=== PATIENT | male | born 1930 | race Caucasian/White ===

== ENCOUNTER 2018-05-27 13:30 | Inpatient (IN) | payer OTHER ==
[~2018-05-27] VITALS: Ht 180.3 cm; Wt 87.3 kg
[2018-05-27] MEDS ORDERED: LASIX (14:40)
[2018-05-27] MEDS ORDERED: METOLAZONE (14:41)
[2018-05-27 15:12] LABS: BASOPHILS 1.2 % (0-2); EOSINOPHILS 3.9 % (0-7); HEMATOCRIT 28.2 % (42.0-54.0); HEMOGLOBIN 8.9 g/dL (13.5-17.5); IMMATURE GRANULOCYTES 0.2 % (0-5); LYMPHOCYTES 19.9 % (15-50); MCH 30.2 pg (26.0-34.0); MCHC 31.6 g/dL (31.0-37.0); MCV 95.6 fL (80.0-100.0); MEAN PLATELET VOLUME 10.1 fL (7.4-10.4); MONOCYTES 6.8 % (2-11); PLATELET COUNT 253 10x3/uL (130-400); RBC 2.95 10x6/uL (4.20-6.10); WBC 5.1 10x3/uL (4.8-10.8)
[2018-05-27 15:46] LABS: APTT 34.3 SECONDS (22.8-39.4); INR 1.22 (0.85-1.17); PROTIME 14.8 SECONDS (11.6-15.0)
[2018-05-27 15:56] LABS: ALKALINE PHOSPHATASE 62 U/L (46-116); ALT (SGPT) 16 U/L (10-68); BILIRUBIN - TOTAL 0.43 mg/dL (0.2-1.3); CALC OSMOLALITY 290 mosm/kg (275-300); CALCIUM 7.8 mg/dL (8.5-10.1); CARBON DIOXIDE 27.4 mmol/L (21.0-32.0); CHLORIDE - SERUM 106 mmol/L (98-107); CREATININE - SERUM 3.3 mg/dL (0.6-1.3); GLUCOSE 108 mg/dL (74-106); POTASSIUM - SERUM 4.2 mmol/L (3.5-5.1); PROTEIN - SERUM 5.7 g/dL (6.4-8.2); SODIUM 142 mmol/L (136-145); UREA NITROGEN 32 mg/dL (7-18); eGFR NON AFRICAN AMERICAN 19 mL/min (90-120)
[2018-05-27 16:04] LABS: % SATURATION 26 % (15-55); IRON 37 ug/dl (35-150); TOTAL IRON BIND CAPACITY 141 ug/dl (260-445); UNSAT IRON BIND CAPACITY 104 ug/dl (150-375)
[2018-05-27 16:08] LABS: CKMB 1.4 U/L (0.0-3.6); CREATINE KINASE 72 UL (21-232); PRO BNP 16579 pg/mL (0-450); TROPONIN-I 0.026 ng/mL (0.000-0.060)
[2018-05-27 16:27] LABS: APPEARANCE CLEAR (CLEAR); BILIRUBIN NEGATIVE (NEGATIVE); COLOR YELLOW (YELLOW); GLUCOSE 100 mg/dL (NEGATIVE); KETONE NEGATIVE (NEGATIVE); NITRITE NEGATIVE (NEGATIVE); PROTEIN 1+ mg/dL (NEGATIVE); UROBILINOGEN NORMAL (NORMAL)
[2018-05-27 16:28] LABS: BACTERIA FEW /hpf (NONE SEEN); RED CELLS - URINE 0-5 /hpf (0-5); WHITE CELLS - URINE OCC /hpf (0-5)
--- NOTE | 2018-05-27 20:30 | NUR ---
PT ARRIVED TO FLOOR VIA STRECHER FROM ER. FAMILY FRIENDS AT BEDSIDE. PT VITALS STABLE. PT DENIES ANY NEEDS OR PAIN AT THIS TIME. BED LOW CALL LIGHT WITHIN REACH. WILL CONTINUE TO MONITOR
[2018-05-28 04:00] VITALS: BP 114/63
--- NOTE | 2018-05-28 04:45 | NUR ---
PT RESTING IN BED WITH EYES CLOSED. RESPIRATIONS EVEN AND UNLABORED. BED LOW CALL LIGHT WITHIN REACH. WILL CONTINUE TO MONITOR.
[2018-05-28 05:38] LABS: ALBUMIN 1.8 g/dL (3.4-5.0); ANION GAP 9.9 mmol/L (8-16); BILIRUBIN - TOTAL 0.31 mg/dL (0.2-1.3); CALCIUM 7.3 mg/dL (8.5-10.1); CARBON DIOXIDE 29.1 mmol/L (21.0-32.0); CREATININE - SERUM 3.4 mg/dL (0.6-1.3); PROTEIN - SERUM 5.1 g/dL (6.4-8.2)
[2018-05-28 05:40] LABS: HEMATOCRIT 28.4 % (42.0-54.0); LYMPHOCYTES 19.3 % (15-50); MCH 30.4 pg (26.0-34.0); MCHC 31.7 g/dL (31.0-37.0); MCV 95.9 fL (80.0-100.0); MEAN PLATELET VOLUME 9.8 fL (7.4-10.4); PLATELET COUNT 213 10x3/uL (130-400); RBC 2.96 10x6/uL (4.20-6.10); RDW 15.1 % (11.5-14.5); WBC 3.8 10x3/uL (4.8-10.8)
--- NOTE | 2018-05-28 07:00 | NUR ---
RESTING QUIETLY IN BED, EYES CLOSED, AROUSES TO VERBAL STIMULI, NO S/S PAIN OR DISTRESS, 3 + EDEMA TO BLE AND ARMS, CALL LIGHT AT HAND, INSTRUCTED TO CALL WITH NEEDS.
[2018-05-28] MEDS ORDERED: NORVASC2.5 MG PO (07:17)
[2018-05-28] MEDS ORDERED: POTASSIUM CHLO20 MEQ (07:18)
[2018-05-28] MEDS ORDERED: SYNTHROID50 MCG PO (07:20)
[2018-05-28] MEDS ORDERED: FERROUS SULFAT325 MG PO (07:21)
[2018-05-28] MEDS ORDERED: COUMADIN2.5 MG PO (07:21)
[2018-05-28] MEDS ORDERED: LASIX40 MG PO (07:21)
[2018-05-28] MEDS ORDERED: LIPITOR40 MG PO (07:22)
[2018-05-28] MEDS ORDERED: HYTRIN1 MG PO (07:23)
[2018-05-28] MEDS ORDERED: TENORMIN50 MG PO (07:24)
[2018-05-28] MEDS ORDERED: CALCIUM 500 +1 EAC3 PO (07:24)
[2018-05-28 07:58] VITALS: BP 132/68
[2018-05-28 10:17] VITALS: BMI 27.2
[2018-05-28 11:46] VITALS: BP 136/65
--- NOTE | 2018-05-28 14:53 | NUR ---
REFUSES SCD'S PER DIMITRIOS/RN
[2018-05-28 15:08] VITALS: Ht 180.3 cm; Wt 87.3 kg
[2018-05-28 16:25] VITALS: BP 142/68
--- NOTE | 2018-05-28 16:45 | MORECARE ---
CASE MANAGEMENT DISCHARGE SUMMARY PATIENT: JOS ESPINAL UNIT: [id number] ADM DATE: 05/27/18 AGE: 87 : 32 SEX: M ROOM/BED: D.2104 AUTHOR: CORIE ROCA PHYSICIAN: REFERRING PHYSICIAN: ERIN LUA MD DATE OF SERVICE: 05/28/18 Discharge Plan Patient Name: JOS ESPINAL [facility] [facility] 1930 Planned Disposition: [place] facility Anticipated Discharge Date: Discharge Date: Expected LOS: Initial Reviewer: [email or web address] Initial Review Date: 05/28/2018 Generated: 05/28/18 5:45 pm Patient Name: JOS ESPINAL Page 85234 at 1645 All edits/amendments must be made on the electronic document DICTATION DATE: 05/28/181643 COMMERCIAL TELLER: JENNY 05/28/181643 RPT#: [id number] DC DATE: STATUS: ADM IN [facility] [address] [place] [address] END OF REPORT
--- NOTE | 2018-05-28 16:53 | MORECARE ---
CASE MANAGEMENT DISCHARGE SUMMARY PATIENT: JOS ESPINAL UNIT: [id number] ADM DATE: 05/27/18 AGE: 87 : 32 SEX: M ROOM/BED: D.2104 AUTHOR: CORIE ROCA PHYSICIAN: REFERRING PHYSICIAN: ERIN LUA MD DATE OF SERVICE: 05/28/18 Discharge Plan Patient Name: JOS ESPINAL [facility] [facility] 1930 [place] Disposition: [place] facility Anticipated Discharge Date: Discharge Date: Expected LOS: Initial Reviewer: [email or web address] Initial Review Date: 05/28/2018 Generated: 05/28/18 5:53 pm DCPIA - Discharge Planning Initial Assessment Updated by [email or web address]: Cedric Brennan on 05/28/18 4:48 pm * Is the patient Alert and Oriented? Yes * How many steps to enter\exit or inside your home? * PCP PRIMARY [facility]. SWAN, [facility] IN[facility] INTERN, DR. NOLASCO, [facility] * [facility] [place] [facility] * Preadmission Environment Home with Family * ADLs Independent * Equipment None * Other Equipment [facility] FOR ANY MEDICAL EQUIPMENT * List name and contact numbers for known caregivers / representatives who currently or will assist patient after discharge: LUDIVINA MOSQUERA SON, NUMBER UNKNOWN LUDIVINA ROBERTS DAUGHTER, * Verbal permission to speak to the caregivers and representatives has been obtained from the patient. Yes * Community resources currently utilized None * Please name any agencies selected above. NONE * Additional services required to return to the preadmission environment? No * Can the patient safely return to the preadmission environment? Yes * Has this patient been hospitalized within the prior 30 days at any hospital? No Last DP export: 05/28/18 3:45 p Patient Name: JOS ESPINAL Page 62720 at 1653 All edits/amendments must be made on the electronic document DICTATION DATE: 05/28/181652 TRAIN CONTROL ELECTRONIC TECHNICIAN: JENNY 05/28/181652 RPT#: [id number] DC DATE: STATUS: ADM IN [facility] [address] [facility], [facility] END OF REPORT
--- NOTE | 2018-05-28 19:15 | NUR ---
RESUME CARE. PT LAYING IN BED A&O FAMILY AT BEDSIDE NO C/O OF PAIN OR DISTRESS AT THIS TIME CALL LIGHT IN REACH WILL CONT TO PRAVEENA
[2018-05-28 20:00] VITALS: BP 146/68
--- NOTE | 2018-05-29 | NUR ---
PT ASLEEP. NO S/S OF DISTRESS. BEDLOW AND CALL LIGHT IN REACH. WILL CPOC
[2018-05-29 04:00] VITALS: BP 160/73
[2018-05-29 04:04] LABS: BASOPHILS 0.8 % (0-2); EOSINOPHILS 3.8 % (0-7); HEMATOCRIT 27.8 % (42.0-54.0); HEMOGLOBIN 8.7 g/dL (13.5-17.5); IMMATURE GRANULOCYTES 0.2 % (0-5); LYMPHOCYTES 17.6 % (15-50); MCH 29.7 pg (26.0-34.0); MCHC 31.3 g/dL (31.0-37.0); MCV 94.9 fL (80.0-100.0); MEAN PLATELET VOLUME 10.2 fL (7.4-10.4); MONOCYTES 8.9 % (2-11); NEUTROPHILS 68.7 % (40-80); PLATELET COUNT 226 10x3/uL (130-400); RBC 2.93 10x6/uL (4.20-6.10); WBC 4.7 10x3/uL (4.8-10.8)
[2018-05-29 04:23] LABS: ALBUMIN 1.7 g/dL (3.4-5.0); ANION GAP 10.3 mmol/L (8-16); BILIRUBIN - TOTAL 0.34 mg/dL (0.2-1.3); CALCIUM 7.2 mg/dL (8.5-10.1); CARBON DIOXIDE 27.5 mmol/L (21.0-32.0); CREATININE - SERUM 3.4 mg/dL (0.6-1.3); MAGNESIUM - SERUM 1.7 mg/dL (1.8-2.4); POTASSIUM - SERUM 3.8 mmol/L (3.5-5.1)
--- NOTE | 2018-05-29 07:00 | NUR ---
RESTING IN BED, ALERT, CALM, DENIES NEEDS, DENIES PAIN, CALL LIGHT AT HAND, INSTRUCTED TO CALL WITH NEEDS.
[2018-05-29 09:02] VITALS: BP 121/63
[2018-05-29 12:17] VITALS: BP 116/62
--- NOTE | 2018-05-29 14:45 | NUR ---
AWAITNG DELIVERY OF BUMEX FROM PHARMACY.
--- NOTE | 2018-05-29 14:58 | NUR ---
RESTING QUIELTY IN BED, ALERT, VERY MILD CONFUSION NOTED, IV MED INFUSING ORDERED. DENIES PAIN, BLE CONT EDEMATOUS, RIGHT ARM EDEMATOUS. CONT ON BUMEX. DENIES NEEDS, CALL LIGHT AT HAND, INSTRUCTED TO CALL WITH NEEDS.
[2018-05-29 15:27] VITALS: BP 154/73
[2018-05-29 19:44] VITALS: BP 158/75
--- NOTE | 2018-05-29 19:45 | NUR ---
RESUMING CARE. PT IS LAYING IN THE BED RESTING WITH EYES CLOSED. BED IN THE LOWEST POSITION WITH CALL LIGHT IN REACH. SIDE RAILS UP X 2. WILL CONTINUE TO MONITOR PT AND FOLLOW PLAN OF CARE.
[2018-05-29 23:50] VITALS: BP 125/71
--- NOTE | 2018-05-30 03:33 | NUR ---
PT RESTING WITH EYES CLOSED. RESP EVEN AND REGULAR. SR UP X2, CALL LIGHT WITHIN REACH.
[2018-05-30 03:45] VITALS: BP 130/80
[2018-05-30 05:43] LABS: BASOPHILS 0.8 % (0-2); EOSINOPHILS 3.7 % (0-7); HEMATOCRIT 29.6 % (42.0-54.0); HEMOGLOBIN 9.4 g/dL (13.5-17.5); IMMATURE GRANULOCYTES 0.6 % (0-5); LYMPHOCYTES 17.2 % (15-50); MCH 29.9 pg (26.0-34.0); MCHC 31.8 g/dL (31.0-37.0); MCV 94.3 fL (80.0-100.0); MEAN PLATELET VOLUME 10.3 fL (7.4-10.4); NEUTROPHILS 69.7 % (40-80); PLATELET COUNT 232 10x3/uL (130-400); RBC 3.14 10x6/uL (4.20-6.10); RDW 15.2 % (11.5-14.5); WBC 4.9 10x3/uL (4.8-10.8)
[2018-05-30 06:08] LABS: ALBUMIN 1.7 g/dL (3.4-5.0); ANION GAP 10.5 mmol/L (8-16); BILIRUBIN - TOTAL 0.27 mg/dL (0.2-1.3); CALCIUM 7.4 mg/dL (8.5-10.1); CARBON DIOXIDE 27.9 mmol/L (21.0-32.0); CREATININE - SERUM 3.3 mg/dL (0.6-1.3); MAGNESIUM - SERUM 1.8 mg/dL (1.8-2.4); POTASSIUM - SERUM 3.4 mmol/L (3.5-5.1); PROTEIN - SERUM 5.2 g/dL (6.4-8.2)
--- NOTE | 2018-05-30 07:54 | NUR ---
PT REQUESTS A SHOW. AID WILL PROVIDE. CL IN REACH. SLEPT POORLY. GOOD SPIRITS.
[2018-05-30 08:00] VITALS: BP 161/72
[2018-05-30 09:13] LABS: PSA - % FREE 43.5 % (()); PSA - TOTAL 2.3 ng/mL (0.0-4.0)
[2018-05-30 10:15] LABS: CEA 1.1 ng/mL (0.0-4.7)
--- NOTE | 2018-05-30 11:12 | NUR ---
PHARMACY HAS NOT BROUGHT NEW BAG OF BUMEX, CALLED @0837
--- NOTE | 2018-05-30 12:38 | NUR ---
RADIOLOGIC TECHNOLOGY PROGRAM DIRECTOR NOTE: PT RESTING IN BED. CO OF PAIN IN JOINTS. NOTIFIED HIS NURSE, JOCE. NO S/S OF ACUTE DISTRESS. CL IN PLACE.
--- NOTE | 2018-05-30 12:42 | NUR ---
HAMPER MAKER NOTE: PT SITTING UP IN BED EATING LUNCH. DENIES PAIN. NO S/S OF ACUTE DISTRESS. CL IN PLACE.
--- NOTE | 2018-05-30 15:58 | NUR ---
PT UNSCREWED OWN I/V. REFIXED.
[2018-05-30 16:00] VITALS: BP 163/87
[2018-05-30 17:55] VITALS: BP 150/68
--- NOTE | 2018-05-30 18:13 | NUR ---
PT IN BED, NO COCNERSN OR COMPLAINTS AT THIS TIME. CL IN REACH. SR X 2
--- NOTE | 2018-05-30 19:20 | NUR ---
AWAKE HOLLERING "IS ANYBODY OUT THERE". STATED HE WANTED HIS URINAL EMPTIED. ORIENTED TO USE THE CALL LIGHT NURSES BUTTON. SOME KOI NOTED. IV IN LT FA WITH BUMES INFUSING AT 10ML/HR. SHOWS 89 SR ON TELEMETRY. NO OTHER NEEDS OR DISCOMFORTS VOICED.
--- NOTE | 2018-05-30 21:00 | NUR ---
STATED SOME DISCOMFORT IN HIS RIGHT ARM, ELEVATED ON 2 PILLOWS. TOOK HIM SOME TYLENOL, BUT HE REFUSED. RETURNED TO THE [facility].
[2018-05-31 00:30] LABS: APPEARANCE CLEAR (CLEAR); BILIRUBIN NEGATIVE (NEGATIVE); COLOR YELLOW (YELLOW); GLUCOSE 500 mg/dL (NEGATIVE); KETONE NEGATIVE (NEGATIVE); NITRITE NEGATIVE (NEGATIVE); PROTEIN 2+ mg/dL (NEGATIVE); SPECIFIC GRAVITY 1.015 (1.005-1.020); UROBILINOGEN NORMAL (NORMAL)
[2018-05-31 00:49] LABS: BACTERIA FEW /hpf (NONE SEEN); EPITHELIAL CELLS OCC /hpf (0-5); HYALINE CAST OCC /lpf (NONE SEEN); RED CELLS - URINE 0-5 /hpf (0-5); WHITE CELLS - URINE OCC /hpf (0-5)
[2018-05-31 00:54] LABS: CREATININE - URINE 40.5 mg/dL (30-125)
[2018-05-31 00:57] LABS: PROTEIN - URINE 637.3 mg/dL (0.0-11.9)
--- NOTE | 2018-05-31 01:00 | NUR ---
USED CALL LIGHT. REQUESTED BLANKET FROM THE CHAIR. EMPTIED URINAL.
--- NOTE | 2018-05-31 04:30 | NUR ---
ASSISTED TO BATHROOM TO HAVE A BM AND BACK TO BED. NO OTHER NEEDS VOICED.
[2018-05-31 04:51] LABS: BASOPHILS 0.6 % (0-2); HEMATOCRIT 29.1 % (42.0-54.0); HEMOGLOBIN 9.2 g/dL (13.5-17.5); IMMATURE GRANULOCYTES 0.6 % (0-5); LYMPHOCYTES 15.1 % (15-50); MCH 29.8 pg (26.0-34.0); MCHC 31.6 g/dL (31.0-37.0); MCV 94.2 fL (80.0-100.0); MEAN PLATELET VOLUME 10.3 fL (7.4-10.4); MONOCYTES 9.2 % (2-11); NEUTROPHILS 71.5 % (40-80); PLATELET COUNT 241 10x3/uL (130-400); RBC 3.09 10x6/uL (4.20-6.10)
[2018-05-31 05:07] VITALS: BP 107/80
[2018-05-31 05:15] LABS: ALBUMIN 1.7 g/dL (3.4-5.0); BILIRUBIN - TOTAL 0.32 mg/dL (0.2-1.3); CALCIUM 7.1 mg/dL (8.5-10.1); CARBON DIOXIDE 27.9 mmol/L (21.0-32.0); CREATININE - SERUM 3.6 mg/dL (0.6-1.3); MAGNESIUM - SERUM 1.8 mg/dL (1.8-2.4); PROTEIN - SERUM 4.9 g/dL (6.4-8.2)
[2018-05-31 05:20] LABS: POTASSIUM - SERUM 2.9 mmol/L (3.5-5.1)
--- NOTE | 2018-05-31 08:09 | NUR ---
PT ASLEEP. DID NOT WAKE I ENTERED. PT REMOVED PILLOWS THAT HAVE BEEN PROPPING HIS ARM UP. DID NOT FURTHER DISTURB. CL IN REACH. SRX2.
[2018-05-31 08:59] VITALS: BP 154/74
[2018-05-31 13:05] VITALS: BP 153/80
--- NOTE | 2018-05-31 15:55 | NUR ---
BACKHAUL DRIVER NOTE: PT RESTING IN BED WATCHING TV. EDEMA TO RUE AND RLE NOTED. NO S/S OF ACUTE DISTRESS. CL IN PLACE.
[2018-05-31 16:09] VITALS: BP 140/77
--- NOTE | 2018-05-31 19:20 | NUR ---
PT NOTED STANDING AT THE FOOT OF HIS BED YELLING FOR HELP. HE WAS TRYING TO GET AROUND HIS BED TO GET IN IT, BUT THE IV WAS STRETCHED TIGHT, AND HE COULDNT GET THERE. PT ASSISTED INTO BED WITH MIN ASSIST. PT IS ALERT TO NAME AND ROOM, BUT CONFUSED TO SITUATION. RIGHT ARM ELEVATED UP ON 2 PILLOWS TO ASSIST IN RELIEVING 3+ EDEMA. TELEMETRY UNIT IS ON AND INTACT. IV BUMEX INFUSING TO LFA WITHOUT DIFFICULTY. SR'S ARE UP X 2 IN BED. CALL LIGHT AND BEDSIDE TABLE ARE WITHIN EASY REACH.
[2018-05-31 19:45] VITALS: BP 171/84
--- NOTE | 2018-05-31 21:01 | NUR ---
RESTING IN BED WATCHING TV. NO DISTRESS NOTED. NO NEEDS VOICED.
[2018-05-31 23:41] VITALS: BP 155/71
--- NOTE | 2018-06-01 00:20 | NUR ---
PT ASSISTED TO THE BATHROOM WITH MIN ASSIST. VOIDED WITHOUT DIFFICULTY. NO FURTHER NEEDS VOICED.
[2018-06-01 03:49] VITALS: BP 180/92
--- NOTE | 2018-06-01 04:06 | NUR ---
PT RESTING IN BED WITH NO DISTRESS. RESPS NONLABORED. MONITOR AND CPOC. CALL LIGHT IN REACH.
[2018-06-01 05:42] LABS: BASOPHILS 0.2 % (0-2); EOSINOPHILS 2.6 % (0-7); HEMATOCRIT 27.8 % (42.0-54.0); HEMOGLOBIN 8.8 g/dL (13.5-17.5); IMMATURE GRANULOCYTES 0.3 % (0-5); LYMPHOCYTES 8.4 % (15-50); MCH 29.6 pg (26.0-34.0); MCHC 31.7 g/dL (31.0-37.0); MCV 93.6 fL (80.0-100.0); MEAN PLATELET VOLUME 10.2 fL (7.4-10.4); NEUTROPHILS 80.5 % (40-80); PLATELET COUNT 224 10x3/uL (130-400); RBC 2.97 10x6/uL (4.20-6.10); RDW 15.1 % (11.5-14.5); WBC 6.1 10x3/uL (4.8-10.8)
[2018-06-01 06:00] LABS: ANION GAP 10.9 mmol/L (8-16); BILIRUBIN - TOTAL 0.42 mg/dL (0.2-1.3); CALCIUM 7.1 mg/dL (8.5-10.1); CARBON DIOXIDE 29.2 mmol/L (21.0-32.0); CREATININE - SERUM 3.5 mg/dL (0.6-1.3); MAGNESIUM - SERUM 1.5 mg/dL (1.8-2.4); POTASSIUM - SERUM 3.1 mmol/L (3.5-5.1); PROTEIN - SERUM 5.4 g/dL (6.4-8.2)
[2018-06-01 06:01] LABS: ALBUMIN 2.4 g/dL (3.4-5.0)
[2018-06-01 08:10] VITALS: BP 156/76
--- NOTE | 2018-06-01 08:14 | NUR ---
CALLED PHARMACY AND SPOKE WITH JOS, INFORMED HIM THAT I AM GOING TO NEED SOME BUMEX. BAG COMPLETELY EMPTIED.
--- NOTE | 2018-06-01 09:51 | NUR ---
AM MEDS GIVEN AT THIS TIME. PT DENIES ANY NEEDS AT THIS TIME. CALL LIGHT IN REACH, NAD NOTED, WILL CONTINUE TO MONITOR.
[2018-06-01 11:45] VITALS: BP 159/71
--- NOTE | 2018-06-01 15:13 | NUR ---
PROVIDED VERBAL AND WRITTEN DISCHARGE TEACHING TO PT WHO VERBALIZED UNDERSTANDING REGARDING TEACHING. D/C LT FA IV WITH CATHETER TIP INTACT. HEART MONITOR REMOVED AND TAKEN TO RISK CONSULTANT TRACY. PT WILL NOFITY THIS NURSE WHEN READY FOR WHEELCHAIR. CALLED PT'S DAUGHTER GLORIA AND NOTIFIED HER OF DISCHARGE.
--- NOTE | 2018-06-01 16:02 | NUR ---
PT LEFT UNIT VIA WHEELCHAIR, WITH ALL BELONGINGS, ACCOMPANIED BY FAMILY, NAD NOTED.
[2018-06-01 17:11] LABS: SPE - A/G RATIO 0.8 (0.7-1.7); SPE - ALBUMIN 2.1 g/dL (2.9-4.4); SPE - ALPHA-1 GLOBULIN 0.3 g/dL (0.0-0.4); SPE - ALPHA-2 GLOBULIN 0.6 g/dL (0.4-1.0); SPE - BETA GLOBULIN 0.7 g/dL (0.7-1.3); SPE - M-SPIKE Not Observed g/dL (Not Observed); SPE - TOTAL PROTEIN 4.6 g/dL (6.0-8.5)
--- NOTE | 2018-06-02 15:01 | EC ---
PATIENT:JOS ESPINAL DATE OF SERVICE: 05/27/18 SEX: M MEDICAL RECORD: [id number] DATE OF : [birth year] LOCATION:D.M2 D.210 AGE OF PATIENT: 87 ADMISSION DATE: 05/27/18 REFERRING PHYSICIAN: INTERPRETING PHYSICIAN: ALTAF WALKER MD ECHOCARDIOGRAM REPORT ECHO CHARGES 4 ECHO COMPLETE Date: 05/29/18 CLINICAL DIAGNOSIS: DYSPNEA/CHF ECHOCARDIOGRAPHIC MEASUREMENTS (adult normal given) AC root (d.<3.7cm) 3.8 cm LV Septum d (<1.2 cm> 1.3 cm Valve Excursion 1.2 cm LV Septum (systole) 1.7 cm Left Atria (s.<4.0cm> 4.4 cm LVPW d(<1.2cm) 1.3 cm RV (d.<2.3cm) 3.5 cm LVPW (sytole) 1.8 cm LV diastole(<5.6CM) 6.6 cm MV E-F(>70mm/sec) cm LV systole 4.2 cm LVOT Diameter 1.9 cm MV exc.(>10mm) cm Est.ejection fraction (50-75%) % DOPPLER: LVIT cm/sec A 52.0 cm/sec E 120 cm/sec LA cm/sec RVSP 53.0 mmHg LVOT 116 cm/sec AOP1/2T 494.0m/s Asc. Ao 310 cm/sec RVOT 46.0 cm/sec RA cm/sec PA 96.0 cm/sec AV Gradient Peak 39.0 mmHg AV Mean 19.0 mmHg AV Area 0.9 cm MV Gradient Peak 14.0 mmHg MV Mean 2.7 mmHg MV Area cm COMMENTS: Engraving Operator: Mauricio MAHONEYOE Training Administrator: 3 Dr. Gonzales TAPE# PACS Pericardial Effusion N DATE OF SERVICE: 05/30/2018 Adequate 2D echo, color flow and spectral Doppler, and M-mode. Mild LVH. LV internal dimensions are normal. LV is mildly globally hypo with LV function lower limits of normal at 45% to 50%. Aortic valve is sclerotic. Peak gradient of 40 mmHg putting this in moderate range. Left atrium is dilated at 4.4 cm. Mitral valve is thickened. Moderate MR. Right-sided chambers appear dilated. [id number] TR. RV systolic pressure estimated greater than or equal to 53 mmHg via the continuity equation. ECHOCARDIOGRAM REPORT [id number] KYLIEJOS TRANSINT:[id number] Voice Confirmation ID: [id number] DOCUMENT ID: [id number] ALTAF WALKER MD at 1501 CC: [id number] DICTATION DATE: 05/30/18 1147 PARKING TECHNICIAN: 05/30/18 1354 DIS IN 06/01/18 [facility] [address] [place] [address]
--- NOTE | 2018-06-03 09:14 | MORECARE ---
CASE MANAGEMENT DISCHARGE SUMMARY PATIENT: JOS ESPINAL UNIT: [id number] ADM DATE: 05/27/18 AGE: 87 : 32 SEX: M ROOM/BED: D.2104 AUTHOR: CORIE ROCA PHYSICIAN: REFERRING PHYSICIAN: ERIN LUA MD DATE OF SERVICE: 06/03/18 Discharge Plan Patient Name: JOS ESPINAL Facility: [facility]:[place] : 1930 Planned Disposition: [place] facility Anticipated Discharge Date: 06/01/18 Discharge Date: 06/01/2018 Expected LOS: 5 Initial Reviewer: [email or web address] Initial Review Date: 05/28/2018 Generated: 06/03/18 10:13 am DCPIA - Discharge Planning Initial Assessment Updated by [email or web address]: Cedric Brennan on 05/28/18 4:48 pm * Is the patient Alert and Oriented? Yes * How many steps to enter\exit or inside your home? * PCP PRIMARY DR. SWAN, [facility] CIRCULAR HEAD SAW OPERATOR, DR. NOLASCO, [facility] * Pharmacy [place] [facility] * Preadmission Environment Home with Family * ADLs Independent * Equipment None * Other Equipment [facility] FOR ANY MEDICAL EQUIPMENT * List name and contact numbers for known caregivers / representatives who currently or will assist patient after discharge: LUDIVINA MOSQUERA SON, NUMBER UNKNOWN LUDIVINA ROBERTS DAUGHTER, * Verbal permission to speak to the caregivers and representatives has been obtained from the patient. Yes * Community resources currently utilized None * Please name any agencies selected above. NONE * Additional services required to return to the preadmission environment? No * Can the patient safely return to the preadmission environment? Yes * Has this patient been hospitalized within the prior 30 days at any hospital? No Last DP export: 05/28/18 3:53 p Patient Name: JOS ESPINAL Page [phone] at 0914 All edits/amendments must be made on the electronic document DICTATION DATE: 06/03/18912 AIR TWIST OPERATOR: JENNY 06/03/18912 RPT#: [id number] DC DATE:06/01/18 STATUS: DIS IN [facility] [address] [place] [address] END OF REPORT
[2018-06-03 15:30] LABS: UPE RAND - ALBUMIN 34.6 % (()); UPE RAND - ALPHA 1 GLOBULIN 11.3 % (()); UPE RAND - ALPHA 2 GLOBULIN 11.1 % (()); UPE RAND - BETA GLOBULIN 17.3 % (()); UPE RAND - GAMMA GLOBULIN 25.6 % (())
--- NOTE | 2018-06-04 10:50 | MORECARE ---
CASE MANAGEMENT DISCHARGE SUMMARY PATIENT: JOS ESPINAL UNIT: [id number] ADM DATE: 05/27/18 AGE: 87 : 32 SEX: M ROOM/BED: D.2104 AUTHOR: ABELINO,DOC PHYSICIAN: REFERRING PHYSICIAN: ERIN LUA MD DATE OF SERVICE: 06/04/18 Discharge Plan Patient Name: JOS ESPINAL Facility: [facility]:[place] : 1930 Planned Disposition: VA facility Anticipated Discharge Date: 06/01/18 Discharge Date: 06/01/2018 Expected LOS: 5 Initial Reviewer: [email or web address] Initial Review Date: 05/28/2018 Generated: 06/04/18 11:49 am Comments DCP- Discharge Planning Updated by [email or web address]: Cedric Brennan on 06/04/18 9:[address] Patient Name: JOS ESPINAL Encounter No: [id number] : 1930 Primary Insurance: [employer] Anticipated DC Date: 06-01-2018 Planned Disposition: HOME DCP follow-up note: CM SPOKE TO PT IN ROOM AFTER READMISSION, PT DOES NOT WANT TO TRANSFER TO [place] AND WANTS TO BILL HIS MEDICARE TO REMAIN AT [place]. CM CALLED [place] EXPEDITOR SHARON, , INFORMED OF PT'S DISCHARGE HOME AND READMIT ON SAME DAY OF DISCHARGE, 06-01-18 WELL PT'S DECISION TO REFUSE VA TRANSFER. Cedric Brennan, CASE MANGEMENT DCPIA - Discharge Planning Initial Assessment Updated by [id number]: Cedric Brennan on 05/28/18 4:48 pm * Is the patient Alert and Oriented? Yes * How many steps to enter\exit or inside your home? * PCP PRIMARY DR. SWAN, [facility], DR. NOLASCO, [facility] * Pharmacy [facility] [place] * Preadmission Environment Home with Family * ADLs Independent * Equipment None * Other Equipment [facility] FOR ANY MEDICAL EQUIPMENT * List name and contact numbers for known caregivers / representatives who currently or will assist patient after discharge: CEDRIC PALOMO, STEP SON, NUMBER UNKNOWN LUDIVINA ROBERTS DAUGHTER, * Verbal permission to speak to the caregivers and representatives has been obtained from the patient. Yes * Community resources currently utilized None * Please name any agencies selected above. NONE * Additional services required to return to the preadmission environment? No * Can the patient safely return to the preadmission environment? Yes * Has this patient been hospitalized within the prior 30 days at any hospital? No Last DP export: 06/03/18 8:14 a Patient Name: JOS ESPINAL Page [phone] at 1050 All edits/amendments must be made on the electronic document DICTATION DATE: 06/04/18 1049 SPECIAL EFFECTS ARTIST: DM 06/04/18 1049 RPT#: [id number] DC DATE:06/01/18 STATUS: DIS IN [facility] [address] [place] [address] END OF REPORT
== END 2018-06-01 16:11 | disposition home or self-care (01) | DRG 291 ==
LOC: D.ER 13:30 → D.EDHOLD 19:22 → D.M2 19:22
PROVIDERS: Family Medicine; Internal Medicine; ADMIT Family Medicine
DX: I13.0 Hypertensive heart and chronic kidney disease with heart failure and stage 1 through stage 4 chronic kidney disease, or unspecified chronic kidney disease (principal); I50.31 Acute diastolic (congestive) heart failure; N18.4 Chronic kidney disease, stage 4 (severe); I48.2 Chronic atrial fibrillation; D64.9 Anemia, unspecified; E83.51 Hypocalcemia

== ENCOUNTER 2018-06-01 19:08 | Inpatient (IN) | payer MEDICARE ==
[~2018-06-01] VITALS: Ht 180.3 cm; Wt 74.1 kg
--- NOTE | ~2018-06-01 | OP ---
PATIENT NAME: JOS ESPINAL MEDICAL RECORD: [id number] :34 LOCATION:D.M2 D.2109 ADMISSION DATE:06/01/18 SURGEON: ANTONIO DEAN MD DATE OF OPERATION: 06/08/2018 REFERRED BY: Oren Lindsey MD PREOPERATIVE DIAGNOSES: End-stage renal disease, needing to start hemodialysis. Additional diagnoses; congestive heart failure, anasarca, large persistent right pleural effusion. POSTOPERATIVE DIAGNOSES: End-stage renal disease, needing to start hemodialysis. Additional diagnoses; congestive heart failure, anasarca, large persistent right pleural effusion. OPERATION PERFORMED: Implantation of a 19-cm HemoSplit with ultrasound and fluoroscopic guidance via the right internal jugular vein. SURGEON: Antonio Dean MD ANESTHESIA: General with an LMA per INSPECTOR. PREOPERATIVE NOTE: This 87-year-old gentleman with worsening renal failure, now thought to be end-stage needs to start dialysis today, and Dr. Lindsey has been replaced a HemoSplit catheter to facilitate that. DESCRIPTION OF PROCEDURE: Under general anesthesia per INSPECTOR, using an LMA, the patient was prepped and draped in sterile manner. The right internal jugular vein was located with Duplex Ultrasound. It was noted to be fully round and fairly turgid though compressible. No other abnormalities were seen. An incision was made at the base of the neck directly over that vein and through that a micropuncture needle and wire were inserted under ultrasound guidance and then under fluoroscopy, a catheter exchange and the larger wire was inserted and the wire parked in the inferior vena cava. Dilators were passed over the wire under fluoroscopy and lastly a dilator peel-away sheath. I chose a 19-cm catheter and made an incision beneath the clavicle and pulled that catheter through a subcutaneous tunnel up to the cervical incision. It was then inserted through the peel-away sheath as it was removed. Fluoroscopy demonstrated good positioning of the catheter. Both lumens were then accessed and aspirated, free return of blood per each was confirmed. It was then flushed with saline and Hep-Lock and the catheter clamped and capped. The cervical incision was closed with interrupted inverted 3-0 Vicryl and to provide additional hemostasis, 2 interrupted simple 4-0 Prolene sutures. A 3-0 Vicryl and intracuticular inverted suture was used at the exit site of the catheter and the catheter was sutured to the skin with 2-0 Prolene. Further sterile dry dressings were applied and the patient in stable condition taken to the recovery room. He will resume his usual or his preop medications, diet, and activities. TRANSINT:[id number] Voice Confirmation ID: [id number] DOCUMENT ID: [id number] OPERATIVE REPORT [id number] JOS ESPINAL JAMES MD CC: OREN LINDSEY [id number] DICTATION DATE: 06/08/18 1114 ENTREPRENEURSHIP PROGRAM DIRECTOR: 06/08/18 1318 ADM IN [place] [address] [place] [address]
[~2018-06-01 19:08] MED LIST: CALCIUM 500 +1 EAC3 PO; COUMADIN2.5 MG PO; FERROUS SULFAT325 MG PO; HYTRIN1 MG PO; LASIX; LASIX40 MG PO; LIPITOR40 MG PO; METOLAZONE; NORVASC2.5 MG PO; POTASSIUM CHLO20 MEQ; SYNTHROID50 MCG PO; TENORMIN50 MG PO
[2018-06-01 20:08] LABS: APPEARANCE CLEAR (CLEAR); BILIRUBIN NEGATIVE (NEGATIVE); COLOR YELLOW (YELLOW); GLUCOSE 100 mg/dL (NEGATIVE); KETONE NEGATIVE (NEGATIVE); NITRITE NEGATIVE (NEGATIVE); PROTEIN 2+ mg/dL (NEGATIVE); UROBILINOGEN NORMAL (NORMAL)
[2018-06-01 20:11] LABS: BACTERIA FEW /hpf (NONE SEEN)
[2018-06-01 20:51] LABS: BASOPHILS 0.2 % (0-2); EOSINOPHILS 0.9 % (0-7); HEMATOCRIT 30.9 % (42.0-54.0); HEMOGLOBIN 9.9 g/dL (13.5-17.5); IMMATURE GRANULOCYTES 0.3 % (0-5); LYMPHOCYTES 10.2 % (15-50); MCH 30.1 pg (26.0-34.0); MCV 93.9 fL (80.0-100.0); MEAN PLATELET VOLUME 10.3 fL (7.4-10.4); MONOCYTES 5.5 % (2-11); NEUTROPHILS 82.9 % (40-80); PLATELET COUNT 234 10x3/uL (130-400); RBC 3.29 10x6/uL (4.20-6.10); RDW 15.5 % (11.5-14.5); WBC 6.6 10x3/uL (4.8-10.8)
[2018-06-01 21:12] LABS: ALBUMIN 2.7 g/dL (3.4-5.0); ANION GAP 16.1 mmol/L (8-16); BILIRUBIN - TOTAL 0.62 mg/dL (0.2-1.3); CALCIUM 7.4 mg/dL (8.5-10.1); CREATININE - SERUM 3.9 mg/dL (0.6-1.3); POTASSIUM - SERUM 3.1 mmol/L (3.5-5.1); PROTEIN - SERUM 6.1 g/dL (6.4-8.2)
--- NOTE | 2018-06-01 21:24 | NUR ---
PT AMBULATED TO RESTROOM WITH ASSISTANCE OF FAMILY.
[2018-06-01 21:55] LABS: CKMB 1.9 U/L (0.0-3.6); CREATINE KINASE 108 UL (21-232); TROPONIN-I 0.047 ng/mL (0.000-0.060)
--- NOTE | 2018-06-01 22:40 | NUR ---
PT PROVIDED WARM BLANKETS FOR COMFORT. PT CHANGED INTO GOWN. RESTING COMFORTABLY ON BED, NO S/S OF ACUTE DISTRESS NOTED AT THIS TIME.
--- NOTE | 2018-06-01 22:55 | NUR ---
PT PROVIDED LEMON ANGOON SODA AND PILLOWS FOR COMFORT.
--- NOTE | 2018-06-02 00:30 | NUR ---
PT RESTING ON BED, PT SPEAKING TO DAUGHTER ON TELEPHONE. RN PROVIDED PT FAMILY AND UPDATE ON PT CONDITION.
--- NOTE | 2018-06-02 03:29 | NUR ---
RESTIN WITH EYES CLOSED. PT GOT OOB TO GO TO THE BATHROOM WITH OUT CALLING FOR NURSE HE UNHOOKED HIMSELF FROM IV AND MONITOR. HE STATED THAT HE PRESSED THE CALL LIGHT BUT IT WAS NOT ACTIVATED OUTSIDE THE ROOM. RN TESTED CALL LIGHT AND IT ACTIVATED OUTSIDE ROOM. REORIENTED PT TO PROPER USE OF CALL LIGHT. PT IS VERY DISATISFIED WITH THE HOSPITAL BED DUE TO ITS "UNCOMFORT". PT HAD FECAL MATTER ON INNER PORTIONS OF THIGHS. CLEANED HIM. DENIES OTHER NEEDS AT THIS TIME. WILL CONTINUE POC.
--- NOTE | 2018-06-02 05:00 | NUR ---
A/OX4. PT HAVING DIFFICULTY URINATING. WILL CONTINUE TO MONITOR. PT ALSO BECAME TACHY FOR A FEW MOMENTS WHILE TRYING TO URINATE. WILL CONT TO FOLLOW POC.
[2018-06-02 05:09] LABS: BASOPHILS 0.5 % (0-2); EOSINOPHILS 0.5 % (0-7); HEMATOCRIT 30.2 % (42.0-54.0); HEMOGLOBIN 9.6 g/dL (13.5-17.5); IMMATURE GRANULOCYTES 0.2 % (0-5); LYMPHOCYTES 11.8 % (15-50); MCH 29.9 pg (26.0-34.0); MCHC 31.8 g/dL (31.0-37.0); MCV 94.1 fL (80.0-100.0); MONOCYTES 8.5 % (2-11); NEUTROPHILS 78.5 % (40-80); PLATELET COUNT 217 10x3/uL (130-400); RBC 3.21 10x6/uL (4.20-6.10); RDW 15.5 % (11.5-14.5); WBC 5.5 10x3/uL (4.8-10.8)
[2018-06-02 05:36] LABS: ANION GAP 12.2 mmol/L (8-16); CALCIUM 7.6 mg/dL (8.5-10.1); CARBON DIOXIDE 27.7 mmol/L (21.0-32.0); CREATININE - SERUM 3.9 mg/dL (0.6-1.3); MAGNESIUM - SERUM 1.6 mg/dL (1.8-2.4)
[2018-06-02 05:45] LABS: POTASSIUM - SERUM 2.9 mmol/L (3.5-5.1)
--- NOTE | 2018-06-02 07:10 | NUR ---
ASSUMED CARE OF PATIENT AT THIS TIME. PT ALERT AND ORIENTED X 4, SPEECH CLEAR. NO ACUTE DISTRESS NOTED. VSS. WILL CONTINUE TO MONITOR FOR CHANGES.
[2018-06-02 09:00] VITALS: BP 166/86
--- NOTE | 2018-06-02 09:00 | NUR ---
PT STABLE, CALL LIGHT WITHIN REACH, ASSISTED WITH PATIENT POSITIONING AND COMFORT. DENIES OTHER NEEDS, WILL CONTINUE TO MONITOR.
--- NOTE | 2018-06-02 10:37 | NUR ---
ASSISTED PT WITH AMBULATING TO BATHROOM.
[2018-06-02 11:02] VITALS: BP 177/107
--- NOTE | 2018-06-02 11:05 | NUR ---
PT STABLE, CALL LIGHT WITHIN REACH, DENIES NEED, WILL CONTINUE TO MONITOR, PHONE PLACED AT BEDSIDE FOR DAUGHTER TO CALL.
[2018-06-02 11:39] LABS: MAGNESIUM - SERUM 1.7 mg/dL (1.8-2.4); POTASSIUM - SERUM 3.1 mmol/L (3.5-5.1)
--- NOTE | 2018-06-02 12:12 | MORECARE ---
CASE MANAGEMENT DISCHARGE SUMMARY PATIENT: JOS ESPINAL UNIT: [id number] ADM DATE: 06/01/18 AGE: 87 : 32 SEX: M ROOM/BED: D.E16 AUTHOR: ABELINODOC PHYSICIAN: REFERRING PHYSICIAN: TANG DIANE MD DATE OF SERVICE: 06/02/18 Discharge Plan Patient Name: JOS ESPINAL [facility]: [facility]:[place] : 1930 Planned Disposition: Anticipated Discharge Date: 06/04/18 Discharge Date: Expected LOS: 3 Initial Reviewer: [email or web address] Initial Review Date: 06/01/2018 Generated: 06/02/18 1:11 pm DCP- Discharge Planning Updated by [email or web address]: Juliana Carmichael on 06/02/18 11:[address] Patient Name: JOS ESPINAL Admission Status: ER Accout number: [id number] Admission Date: 06-01-2018 : 1930 Admission Diagnosis: Attending: TANG DIANE Current LOS: 1 Anticipated DC Date: 06-04-2018 Planned Disposition: Primary Insurance: MEDICARE A & B Discharge Planning Comments: CM met with patient to complete initial dc planning assessment. CM educated patient on the CM role and verbal consent given by patient to complete assessment. Patient lives at home and his disabled step son lives with him. He reports he is independent in his care at home. Patient very short of breath during conversation and reports he does not wear o2 at home. Pulse ox reading 91-93 while cm in room. Notified nurse who will put oxygen on the patient. Walk test will be needed prior to discharge to see if the patient will need oxygen at home. At discharge patient plans to return home and feels this is a safe discharge. CM discussed availability of home health, rehab services, and medical equipment. Patient denied known discharge needs at this time. CM will continue to follow and will assist as needed with dc plans/needs. Escrow Manager: Juliana Carmichael DCPIA - Discharge Planning Initial Assessment Updated by [email or web address]: Juliana Carmichael on 06/02/18 12:08 pm * Is the patient Alert and Oriented? Yes * How many steps to enter\exit or inside your home? * PCP Dr. Bella in [place] Dr. Goldstein - air boatswain in [place] * Pharmacy [facility] for [facility] of his meds. * Preadmission Environment Home with Family * ADLs Independent * Equipment None * List name and contact numbers for known caregivers / representatives who currently or will assist patient after discharge: Scott Crawford - friend/neighbor - [phone] Светлана Mayo - daughter - [phone] (lives in [place]) * Verbal permission to speak to the caregivers and representatives has been obtained from the patient. Yes * Community resources currently utilized None * Additional services required to return to the preadmission environment? No * Can the patient safely return to the preadmission environment? Yes * Has this patient been hospitalized within the prior 30 days at any hospital? Yes Patient Name: JOS ESPINAL Page 39775 at 1212 All edits/amendments must be made on the electronic document DICTATION DATE: 06/02/18 1211 SERVICE STATION ATTENDANT: JENNY 06/02/18 1211 RPT#: [id number] DC DATE: STATUS: ADM IN [facility] [address] [place] [address] END OF REPORT
--- NOTE | 2018-06-02 13:05 | NUR ---
REPORT CALLED TO JOSEE, NURSE ROOM 2173. PT STABLE, CALL LIGHT WITHIN REACH, WILL CONTINUE TO MONITOR. DENIES NEEDS.
--- NOTE | 2018-06-02 13:30 | NUR ---
PT TO FLOOR ROOM 0932 NURSE TRIPP. PT STABLE AT TRANSPORT.
[2018-06-02 14:06] VITALS: BP 178/98; BMI 27.2
--- NOTE | 2018-06-02 14:32 | NUR ---
PT ARRIVED FROM ER A&O SITTING UP IN BED RESTING QUIETLY. ADMISSION WORKUP COMPLETED. PT USES THE [place] [facility] FOR ALL MEDICATIONS SO I LEFT THAT BLANK TOLD BY RESPITE CARE PROVIDER FOR THAT PHARMACY CHOICE. PT DOESNT WANT TO TAKE SCHEDULED MEDICATIONS THAT ARE ORDERED HE IS NOT FOR SURE WHAT HE HAS OR HASNT TAKEN AND STATES HIS GRANDSON REYNALDO WILL BRING HIS MEDICATION LIST IN TO REVIEW. PT IS ON A BUMEX DRIP @2.5ML/HR VIA L.HAND PIV. PT DENIES ANY CURRENT PAIN OR NEEDS AT THIS TIME. CL IN REACH, BED IN LOWEST, SIDE RAILS X2. WILL CTM.
[2018-06-02 15:28] LABS: % SATURATION 18 % (15-55); IRON 26 ug/dl (35-150); TOTAL IRON BIND CAPACITY 143 ug/dl (260-445); UNSAT IRON BIND CAPACITY 117 ug/dl (150-375)
[2018-06-02 16:12] VITALS: BP 178/98
--- NOTE | 2018-06-02 17:20 | NUR ---
EMPTIED BEDSIDE URINAL OF 25CC CLEAR YELLOW URINE. PT SITTING UP IN BED TO EAT DINNER. NO CURRENT NEEDS. WILL CTM.
--- NOTE | 2018-06-02 18:29 | NUR ---
READING EFFICIENCY COURSE DIRECTOR COMPLETE. PT LYING IN BED. DENIES NEEDS AT THIS TIME. NO SIGNS OF DISTRESS
[2018-06-02 20:00] VITALS: BP 156/94
--- NOTE | 2018-06-02 23:42 | NUR ---
PT UP TO BATHROOM. HAVING DIFFICULTY URINATING. BED LOW CALL LIGHT WITHIN REACH. WILL ALEX UE TO MONITOR
[2018-06-03] VITALS (9 sets, daily range): BP systolic 135–160; BP diastolic 67–90; BMI 27.2
--- NOTE | 2018-06-03 04:31 | NUR ---
PT RESTING COMFORTABLY. PT DENIES ANY PAIN OR NEEDS AT THIS TIME. BED LOW CALL LIGHT WITHIN REACH. WILL CONTINUE TO MONITOR.
[2018-06-03 05:46] LABS: BASOPHILS 0.1 % (0-2); EOSINOPHILS 0.1 % (0-7); HEMATOCRIT 31.4 % (42.0-54.0); HEMOGLOBIN 9.8 g/dL (13.5-17.5); IMMATURE GRANULOCYTES 0.3 % (0-5); LYMPHOCYTES 11.2 % (15-50); MCH 29.6 pg (26.0-34.0); MCHC 31.2 g/dL (31.0-37.0); MCV 94.9 fL (80.0-100.0); MEAN PLATELET VOLUME 10.4 fL (7.4-10.4); MONOCYTES 8.7 % (2-11); NEUTROPHILS 79.6 % (40-80); RBC 3.31 10x6/uL (4.20-6.10); RDW 16.2 % (11.5-14.5)
[2018-06-03 05:50] LABS: PLATELET COUNT 273 10x3/uL (130-400); WBC 7.8 10x3/uL (4.8-10.8)
[2018-06-03 05:58] LABS: APTT 40.7 SECONDS (22.8-39.4); INR 1.25 (0.85-1.17); PROTIME 15.1 SECONDS (11.6-15.0)
[2018-06-03 06:13] LABS: CALCIUM 7.7 mg/dL (8.5-10.1); CARBON DIOXIDE 27.4 mmol/L (21.0-32.0); CREATININE - SERUM 4.3 mg/dL (0.6-1.3); POTASSIUM - SERUM 3.4 mmol/L (3.5-5.1)
--- NOTE | 2018-06-03 07:25 | NUR ---
AM ROUNDS COMPLETED. INTRODUCED MYSELF TO PT PRIMARY RN FOR TODAYS SHIFT. PT IS A&O RESTING QUIETLY IN BED AT THIS TIME. SHIFT ASSESSMENT COMPLETED. WILL REVIEW CHART AND PULL MORNING MEDICATIONS AND CPOC. NO CURRENT NEEDS. CL IN REACH.
[2018-06-03 08:22] LABS: FOLATE (FOLIC ACID) - SERUM 8.2 ng/mL (>3.0)
--- NOTE | 2018-06-03 08:50 | NUR ---
SPECIALS TEAM HERE AT BEDSIDE TO TAKE PT FOR THORENCENTESIS. CONSENTS ARE SIGNED AND PT IS READY TO GO. NO CURRENT NEEDS. PT NOW LEAVING. WILL CTM.
--- NOTE | 2018-06-03 10:15 | NUR ---
PT BACK FROM PROCEDURE AND HAS A NEW CHEST TUBE IN PLACE. DRSG SECURED TO R.SIDE BACK AREA, CHEST TUBE DRAINING CLEAR YELLOW URINE AT 20CM SUCTION. VSS AND BEING MONITERED PER POST PROCEDURE POLICY. PT SLEEPY BUT AWAKES WITHOUT ANY DIFFICULTIES. PT DENIES ANY CURRENT PAIN OR NEEDS AT THIS TIME. CL IN REACH. WILL CTM.
--- NOTE | 2018-06-03 10:53 | NUR ---
PT REMAINS TO REST QUIETLY IN BED WITH CHEST TUBE DRAINING CLEAR YELLOW FLUID. RR NONLABORED. VSS. PT DENIES ANY CURRENT PAIN OR NEEDS AND WANTS TO CONTINUE RESTING. CL IN REACH, BED IN LOWEST, SIDE RAILS X2. WILL CTM.
--- NOTE | 2018-06-03 14:02 | NUR ---
PT STILL VERY TIRED FROM PROCEDURE AND WANTING TO STILL REST. VSS AND STILL BEING MONITERED. CHEST TUBE IN PLACE AND DRAINING OFF R.SIDE OF BED ORDERED. PT DENIES ANY CURRENT PAIN OR NEEDS AT THIS TIME. NO FAMILY PRESENT. WILL CTM.
--- NOTE | 2018-06-03 15:41 | NUR ---
PT AWAKE AND ATE ABOUT 75% OF HIS LUNCH. PT STATES HE IS FEELING GOOD. CHEST TUBE CANISTER ALMOST FULL, NEW CANISTER AT BEDSIDE READY TO SWITCH OUT. EMPTIED BEDSIDE URINAL OF 50CC YELLOW URINE. NO CURRENT NEEDS AT THIS TIME. CL IN REACH, BED IN LOWEST, SIDE RAILS X2. WILL CTM.
[2018-06-03 16:13] LABS: PROTEIN - BODY FLUID 1.3 G/DL
[2018-06-03 16:44] LABS: EOS BF 1 %; MACROPHAGES BF 4 %; NEUT - BF 5 %
--- NOTE | 2018-06-03 17:59 | NUR ---
PTS CHEST TUBE FILLED UP TO 1850ML OF CLEAR YELLOW FLUID. CHANGED OUT CANISTER AND NEW CANISTER CONNECTED TO WALL SUCTION @20CM WITH NO S/S OF LEAKAGE OR ISSUES. PT SITTING UP IN BED EATING DINNER. DENIES ANY CURRENT PAIN OR NEEDS. CL IN REACH, WILL CTM.
--- NOTE | 2018-06-03 20:25 | NUR ---
PT SISTER CALLED CHECKING IN ON PT. WALKED INTO PT'S ROOM AND 24 G IV PULLED OUT WITH CATHETER TIP IN PLACE. PT HAS RIGHT SIDED CHEST TUBE. O2-95% PT DENIES ANY NEEDS AT THIS TIME. WILL CONTINUE TO MONITOR. BED LOW CALL LIGHT WITHIN REACH.
--- NOTE | 2018-06-03 21:41 | NUR ---
PT IV COUGHT ON BED AND PULLED OUT IN LEFT FINGER. CATHETER TIP IN PLACE. BUMEX DRIP D/C'D PER DWORKIN ORDERS. LASIX ADDED TO JUL. PT RESPERATIONS EVEN AND UNLABORED. DENIES ANY NEEDS OR PAIN AT THIS TIME. WILL CONTINUE TO MONITOR.
--- NOTE | 2018-06-03 23:36 | NUR ---
LYING IN BED WITH CALL LIGHT IN REACH. WILL CONTINUE TO MONITOR.
--- NOTE | 2018-06-03 23:51 | NUR ---
22G IV ESTABLISHED IN PT SALCEDO HAND. X 1 STICK. IV PATENT AND FLUSHES. IV ANTIBOITICS STARTED. PT DENIES ANY PAIN OR NEEDS AT THIS TIME. WILL CONTINUE TO MONITOR.
--- NOTE | 2018-06-04 00:09 | NUR ---
PT COMPLAING OF SHARP ACHING PAIN ON RIGHT SIDE CHEST TUBE SITE. PRN TYLENOL GIVEN. BED LOW CALL LIGHT WITHIN REACH. WILL CONTINUE TO MONITOR.
[2018-06-04 00:14] VITALS: BP 134/74
--- NOTE | 2018-06-04 02:45 | NUR ---
PT COMPLAINING OF SEVERE PAIN IN LOWER RIGHT SIDE OF BACK. CALLED DR. LOPEZ PRN PAIN MEDICATION ORDERED. SEE JUL. BED LOW CALL LIGHT WITHIN REACH. WILL CONTINUE TO MONITOR.
--- NOTE | 2018-06-04 03:50 | NUR ---
PRN PAIN MEDICATION GIVEN TO PT. VITALS STABLE. BP-120/74 P-65 R-14 BED LOW CALL LIGHT WITHIN REACH. WILL CONTINUE TO MONITOR.
[2018-06-04 04:00] VITALS: BP 125/74
--- NOTE | 2018-06-04 04:20 | NUR ---
ENTERED PT'S ROOM, PT UNRESPONSIVE. NO RESPIRATIONS. PULSE FAINT. CODE BLUE CALLED.
--- NOTE | 2018-06-04 04:57 | NUR ---
PT RECIEVED NARCAN. CHEST X-RAY DONE. PT OPENED EYES AND ASKED FOR PILLOW. RESPIRATIONS- 12 BP-120/72 P-68. PT RESTING AT THIS TIME. BED LOW CALL LIGHT WITHIN REACH. WILL CONTINUE TO MONITOR.
--- NOTE | 2018-06-04 05:59 | NUR ---
PT RESTING COMFORTABLY IN BED. RESPIRATIONS EVEN AND UNLABORED. VITALS STABLE. BED LOW CALL LIGHT WITHIN REACH. WILL CONTINUE TO M ONITOR.
[2018-06-04 06:12] LABS: BASOPHILS 0.1 % (0-2); EOSINOPHILS 0.4 % (0-7); HEMATOCRIT 33.3 % (42.0-54.0); HEMOGLOBIN 10.2 g/dL (13.5-17.5); IMMATURE GRANULOCYTES 0.3 % (0-5); LYMPHOCYTES 9.3 % (15-50); MCH 29.6 pg (26.0-34.0); MCHC 30.6 g/dL (31.0-37.0); MCV 96.5 fL (80.0-100.0); MEAN PLATELET VOLUME 10.5 fL (7.4-10.4); MONOCYTES 7.9 % (2-11); PLATELET COUNT 251 10x3/uL (130-400); RBC 3.45 10x6/uL (4.20-6.10); RDW 16.1 % (11.5-14.5); WBC 7.6 10x3/uL (4.8-10.8)
[2018-06-04 06:32] LABS: ANION GAP 13.5 mmol/L (8-16); CALCIUM 7.3 mg/dL (8.5-10.1); CARBON DIOXIDE 27.8 mmol/L (21.0-32.0); CREATININE - SERUM 4.6 mg/dL (0.6-1.3); POTASSIUM - SERUM 3.3 mmol/L (3.5-5.1); PROTEIN - SERUM 5.7 g/dL (6.4-8.2)
[2018-06-04 08:03] VITALS: BP 147/80
--- NOTE | 2018-06-04 08:06 | NUR ---
APPARENTLY PT CODED LAST NIGHT AND IS DOING WORSE TODAY. PT IS AWAKE AND ALERT AND STATES HE IS JUST FEELING LIKE CRAP. RR ARE VERY DIMINISHED ALL OVER BUT RLL ALMOST ABSENT, UNSURE IF IM HEARING FLUID OR AIR MOVING. PTS CHEST TUBE IS FILLED TO 1825ML OF YELLOW FLUID. CHANGED OUT CHEST TUBE AND MADE SURE ITS SECURED WITH DRSG. WAITING ON NEW XRAY AND WILL [facility] RADIOLOGY TO MAKE SURE THEY ARE AWARE. NO IMMEDIATE NEEDS. WILL CTM.
--- NOTE | 2018-06-04 10:10 | NUR ---
CONTINUOUS PULSE OX PALCED ORDERED. O2 SAT RUNNING 100% WEANED NC DOWN TO 3L AND PT STAYING AT 99-100% PT IS VERY WEAK AND TIRED WANTING TO SLEEP, TOO TIRED FOR BREAKFAST. WILL HOLD MORNING MEDICATIONS EXCEPT FOR A COUPLE PT TOO WEAK TO TAKE. PT STATES HE WILL TRY THOUGH. PT SOILED WITH URINE. COMPLETE BED CHANGE PROVIDED AND WILL CTM. CL IN REACH, BED IN LOWEST, SIDE RAILS X2 AND KEVIN PAD IN PLACE.
--- NOTE | 2018-06-04 10:50 | MORECARE ---
CASE MANAGEMENT DISCHARGE SUMMARY PATIENT: JOS ESPINAL UNIT: [id number] ADM DATE: 06/01/18 AGE: 87 : 32 SEX: M ROOM/BED: D.2109 AUTHOR: ABELINO,DOC PHYSICIAN: REFERRING PHYSICIAN: TANG DIANE MD DATE OF SERVICE: 06/04/18 Discharge Plan Patient Name: JOS ESPINAL Facility: [facility]:[place] : 1930 Planned Disposition: Anticipated Discharge Date: 06/04/18 Discharge Date: Expected LOS: 3 Initial Reviewer: [email or web address] Initial Review Date: 06/01/2018 Generated: 06/04/18 11:50 am Comments DCP- Discharge Planning Updated by [id number]: Cedric Brennan on 06/04/18 9:[address] Patient Name: JOS ESPINAL Encounter No: [id number] : 1930 Primary Insurance: MEDICARE A & B Anticipated DC Date: 06-04-2018 Planned Disposition: HOME DCP follow-up note: CM SPOKE TO PT IN ROOM AFTER READMISSION, PT DOES NOT WANT TO TRANSFER TO [facility] AND WANTS TO BILL HIS MEDICARE TO REMAIN AT [place]. CM CALLED [place] EXPEDITOR SHARON, , INFORMED OF PT'S DISCHARGE HOME AND READMIT ON SAME DAY OF DISCHARGE, 06-01-18 WELL PT'S DECISION TO REFUSE VA TRANSFER. CM TO CONTINUE TO FOLLOW AND ASSIST WITH ANY DISCHARGE NEEDS. JOSEP PAL DCP- Discharge Planning Updated by [email or web address]: Juliana Carmichael on 06/02/18 11:[address] Patient Name: JOS ESPINAL Admission Status: ER Accout number: [id number] Admission Date: 06-01-2018 : 1930 Admission Diagnosis: Attending: TANG DIANE Current LOS: 1 Anticipated DC Date: 06-04-2018 Planned Disposition: Primary Insurance: MEDICARE A & B Discharge Planning Comments: CM met with patient to complete initial dc planning assessment. CM educated patient on the CM role and verbal consent given by patient to complete assessment. Patient lives at home and his disabled step son lives with him. He reports he is independent in his care at home. Patient very short of breath during conversation and reports he does not wear o2 at home. Pulse ox reading 91-93 while cm in room. Notified nurse who will put oxygen on the patient. Walk test will be needed prior to discharge to see if the patient will need oxygen at home. At discharge patient plans to return home and feels this is a safe discharge. CM discussed availability of home health, rehab services, and medical equipment. Patient denied known discharge needs at this time. CM will continue to follow and will assist as needed with dc plans/needs. Advanced Analytics Associate: Juliana Carmichael DCPIA - Discharge Planning Initial Assessment Updated by [email or web address]: Juliana Carmichael on 06/02/18 12:08 pm * Is the patient Alert and Oriented? Yes * How many steps to enter\exit or inside your home? * PCP Dr. Bella in [place] Dr. Goldstein - senior grants officer in [place] * Pharmacy [facility] for all of his meds. * Preadmission Environment Home with Family * ADLs Independent * Equipment None * List name and contact numbers for known caregivers / representatives who currently or will assist patient after discharge: Scott Crawford - friend/neighbor - [phone] Светлана Mayo - daughter - [phone] (lives in [place]) * Verbal permission to speak to the caregivers and representatives has been obtained from the patient. Yes * Community resources currently utilized None * Additional services required to return to the preadmission environment? No * Can the patient safely return to the preadmission environment? Yes * Has this patient been hospitalized within the prior 30 days at any hospital? Yes Last DP export: 06/02/18 11:12 a Patient Name: JOS ESPINAL Page [phone] at 1050 All edits/amendments must be made on the electronic document DICTATION DATE: 06/04/[address] JUDGE: JENNY 06/04/18 1050 RPT#: [id number] DC DATE: STATUS: ADM IN [facility] [address] [place] [address] END OF REPORT
[2018-06-04 11:30] VITALS: BP 132/66
[2018-06-04 15:29] VITALS: BP 120/66
[2018-06-04 16:16] LABS: ACID FAST SMEAR Negative (()); AFB SPECIMEN PROCESSING Not Indicated (())
--- NOTE | 2018-06-04 17:39 | NUR ---
PT NOT FEELING LIKE EATING DINNER AT THIS TIME BUT DID DRINK SOME JUICE. CHEST TUBE STILL DRAINING TO WALL SUCTION @20CM BLOODY DRAINAGE. PT DENIES ANY PAIN AND IS BREATHING MUCH EASIER NOW. RR NONLABORED AND NC IS WEANED DOWN TO 2L. PT DENIES ANY CURRENT NEEDS AT THIS TIME. WILL CTM.
--- NOTE | 2018-06-04 19:40 | NUR ---
RESUMING CARE. PT LAYING IN BED WITH EYES CLOSED CONT PULSE OX CONNECTED TO LFT EAR, LEFT HAND IV SL, RT SIDE CHEST TUBE W/ CONT SUCTION , O2 @ 2L NO C/O PAIN OR DISTRESS NOTED CALL LIGHT IN REACH WILL CONT TO MONITOR
[2018-06-04 20:00] VITALS: BP 124/60
--- NOTE | 2018-06-04 22:41 | NUR ---
REMOVED CONT PULSE OX FROM EAR
[2018-06-05] VITALS (9 sets, daily range): BP systolic 111–126; BP diastolic 61–84
--- NOTE | 2018-06-05 04:21 | NUR ---
CONTRACTOR GENERAL ENGINEERING AT BEDSIDE TO OBTAIN VITALS, CALL LIGHT IN REACH. WILL CONTINUE WITH PLAN OF CARE.
[2018-06-05 06:31] LABS: CARBON DIOXIDE 23.8 mmol/L (21.0-32.0); CREATININE - SERUM 4.7 mg/dL (0.6-1.3); MAGNESIUM - SERUM 1.7 mg/dL (1.8-2.4)
[2018-06-05 06:36] LABS: ANION GAP 14.4 mmol/L (8-16); POTASSIUM - SERUM 4.2 mmol/L (3.5-5.1)
[2018-06-05 06:37] LABS: CALCIUM 6.3 mg/dL (8.5-10.1)
[2018-06-05 07:25] LABS: BASOPHILS 0.1 % (0-2); EOSINOPHILS 0 % (0-7); HEMATOCRIT 32.9 % (42.0-54.0); IMMATURE GRANULOCYTES 0.4 % (0-5); MCH 29.8 pg (26.0-34.0); MCHC 30.4 g/dL (31.0-37.0); MCV 97.9 fL (80.0-100.0); MONOCYTES 9.5 % (2-11); PLATELET COUNT 211 10x3/uL (130-400); RBC 3.36 10x6/uL (4.20-6.10); RDW 16.2 % (11.5-14.5); WBC 9.2 10x3/uL (4.8-10.8)
--- NOTE | 2018-06-05 08:52 | NUR ---
IR INVENTORY CONTROL ANALYST AT BEDSIDE. CHEST TUBE SHOWS AIR LEAK AND TUBING IS FURTHER OUT THAN WHEN I ASSESSED PT YESTERDAY. SHUT CHEST TUBE OFF AND WILL AWAIT FURTHER ORDERS.
--- NOTE | 2018-06-05 10:01 | NUR ---
IR ELECTRONIC PUBLICATIONS SPECIALIST AT BEDSIDE TO REMOVE CHEST TUBE ITS NOT IN CORRECT PLACE. SHE STATES TO KEEP PT NPO AND HE WILL HAVE TO GO FOR ANOTHER PLACEMENT. PTS R.ARM IS VERY EDEMATOUS WITH PITTING EDEMA. R.SIDE OF ABDOMEN/BACK IS ALSO VERY SWOLLEN WITH +3 PITTING EDEMA WHICH IS LIKELY R/T THE CHEST TUBE NOT BEING IN PLACE TO DRAIN. PT VERBALIZED UNDERSTANDING AND DENIES ANY QUESTIONS OR CONCERNS. CL IN REACH. WILL CTM.
--- NOTE | 2018-06-05 12:32 | NUR ---
Nutrition follow-up: Pt NPO for CT placement PO intake of renal diet has been ~60% of meals Pt has refused some meals Labs reviewed +BM Wt: 185# RDN following.
--- NOTE | 2018-06-05 13:42 | NUR ---
CONSENTS OBTAINED FOR CT GUIDED CHEST TUBE PLACEMENT AND PLACED IN CHART. PT VERBALIZED UNDERSTANDING ON WHY IT NEEDS REPLACED AND AGREED. SPECIALS OUTDOOR ILLUMINATING ENGINEER EUGENE AT BEDSIDE TO TAKE PT. PT READY TO GO AND LEAVING OUR UNIT NOW.
[2018-06-05 14:26] LABS: FUNGUS STAIN Final report (())
--- NOTE | 2018-06-05 15:28 | NUR ---
PT BACK FROM PROCEDURE AND HAS NEW CHEST TUBE TO HIS R.SIDE. DRSG CDI AND ITS SET TO WALL LOW SUCTION. PT IS AWAKE AND VSS AND BEING MONITERED PER POST PRCOEDURE POLICY. FAMILY AT BEDSIDE VISITING. PT DENIES ANY CURRENT PAIN OR NEEDS. WILL CPOC.
--- NOTE | 2018-06-05 16:01 | NUR ---
VSS AND STILL BEING MONITERED PER POST PROCEDURE POLICY. R.SIDE DRSG STILL CDI CLEAR YELLOW DRAINING TO CHEST TUBE, NO ISSUES NOTED AND NO AIR LEAKAGE DETECTED. PT RESTING QUIETLY. WILL CTM.
--- NOTE | 2018-06-05 17:45 | NUR ---
VSS AND RR NONLABORED WITH NC @2L. PT CONSTANTLY TURNS TO HIS R.SIDE AND RISK FOR MESSING WITH THE CHEST TUBE. ASSISTED PT TO ROLL ON HIS L.SIDE AND HIS CHEST TUBE WHERE THE [employer]ETS WAS ALMOST DISCONNECTED AND PT NOW HAS AN AIR LEAK. RECONNECTED TIGHTLY AND MADE SURE EVERYTHING WAS TIGHT. PTS LUNG SOUNDS TO THAT SIDE HAVE FINE CRACKLES TO DIMINISHED LUNG SOUNDS. PAGED PRIMARY AND IR AND WILL CTM.
--- NOTE | 2018-06-05 18:15 | NUR ---
SPOKE WITH REFURBISH TECHNICIAN AND HE STATES TO KEEP ON WALL SUCTION AND HE WILL LOOK FOR THE XRAY RESULTS AND JUST CONTINUE TO MONITER PT CLOSELY. NO IMMEDIATE NEEDS.
--- NOTE | 2018-06-05 19:45 | NUR ---
PT SITTING UP ON THE SIDE OF BED ALERT AND ORIENTED. PT RESPIRATIONS EVEN AND UNLABORED. PT RIGHT SIDED CHEST TUBE INTACT. 350ML OUT PUT IN CANESTER. DRESSING IS SECURE, CLEAN, DRY AND INTACT. PT DENIES ANY PAIN OR NEEDS AT THIS TIME. BED LOW CALL LIGHT WITHIN REACH. WILL CONTINUE TO MONITOR.
--- NOTE | 2018-06-05 23:30 | NUR ---
PT ALERT AND ORIENTED TO PERSON. PT STATED HE WAS IN [place]. PT WAS TRYING TO USE HOSPITAL PHONE THAT WAS OFF THE HOOK. PT KEPT SAYING, ARE YOU THERE, ARE YOU THERE. ORIENTED PT TO PLACE AND SITIUATION.HELPED PT BACK INTO BED. RIGHT CHEST TUBE IN PLACE DRESSING CLEAN,DRY, AND INTACT. BED LOW SIDE RAILS UP X2. CALL LIGHT WITHIN REACH. WILL CONTINUE TO MONITOR.
[2018-06-06] VITALS: BP 99/56
--- NOTE | 2018-06-06 03:35 | NUR ---
RN NOTE. PATIENT APPEARS TO BE SLEEPING. RESPIRATIONS ARE EVEN AND UNLABORED. NO S/S DISTRESS. CALL LIGHT WITHIN REACH. WILL CPOC.
[2018-06-06 04:00] VITALS: BP 134/63
--- NOTE | 2018-06-06 04:11 | NUR ---
PT RESTING IN BED COMFORTABLY WITH EYES CLOSED. RESPIRATIONS EVEN AND UNLABORED. SIDE RAILS UP X2, BED LOW, CALL LIGHT WITHIN REACH. WILL CONTINUE TO MONITOR.
[2018-06-06 07:26] LABS: BASOPHILS 0.2 % (0-2); EOSINOPHILS 0 % (0-7); HEMATOCRIT 29.8 % (42.0-54.0); HEMOGLOBIN 9.2 g/dL (13.5-17.5); IMMATURE GRANULOCYTES 1.1 % (0-5); LYMPHOCYTES 7.8 % (15-50); MCH 29.7 pg (26.0-34.0); MCHC 30.9 g/dL (31.0-37.0); MCV 96.1 fL (80.0-100.0); MEAN PLATELET VOLUME 9.8 fL (7.4-10.4); MONOCYTES 11.8 % (2-11); NEUTROPHILS 79.1 % (40-80); PLATELET COUNT 199 10x3/uL (130-400); RDW 16.2 % (11.5-14.5)
[2018-06-06 07:28] LABS: WBC 6.5 10x3/uL (4.8-10.8)
[2018-06-06 07:33] LABS: ANION GAP 16.2 mmol/L (8-16); CARBON DIOXIDE 24.4 mmol/L (21.0-32.0); POTASSIUM - SERUM 4.6 mmol/L (3.5-5.1)
--- NOTE | 2018-06-06 08:18 | NUR ---
PATIENT IS RESTING ON BACK AT THIS TIME. AWAKE AND ALERT. MARKED AMOUNT IN CHEST TUBE CANISTER
--- NOTE | 2018-06-06 09:04 | NUR ---
PATIENT IS SITTING UP ON EDGE OF BED. HE IS VERY CONFUSED. HE THINKS HE IS IN [place]. HE CAN FOLLOW SIMPLE DIRECTIONS .
--- NOTE | 2018-06-06 09:54 | NUR ---
PLACED A BED ALARM UNDER PATIENT AT THIS TIME. HE IS CONFUSED. HE WAS ABLE TO TAKE HIS MORNING MEDICATIONS. HE IS NPO FOR RADIOLOGY. AT THIS TIME.
--- NOTE | 2018-06-06 10:31 | NUR ---
SITTING UP SOB WITH CALL LIGHT IN REACH. RESP UL ON . WILL CONT. PLAN OF CARE.
[2018-06-06 10:34] VITALS: BP 130/70
[2018-06-06 13:06] VITALS: BP 104/54
[2018-06-06 13:55] VITALS: Ht 180.3 cm; Wt 74.1 kg
[2018-06-06 16:17] VITALS: BP 97/56
[2018-06-06 19:54] VITALS: BP 107/56
--- NOTE | 2018-06-06 20:20 | NUR ---
ADMIN SCHED MEDS WITH SIPS OF WATER SWALLOWING WITHOUT DIFFICULTY. DENIES ANY NEEDS.
[2018-06-07 03:44] VITALS: BP 124/72
--- NOTE | 2018-06-07 04:00 | NUR ---
IV OUT. RESITED IN LEFT WRIST 22G.
[2018-06-07 05:12] LABS: HEMATOCRIT 30.3 % (42.0-54.0); HEMOGLOBIN 9.5 g/dL (13.5-17.5); MCHC 31.4 g/dL (31.0-37.0); MCV 95.6 fL (80.0-100.0); MEAN PLATELET VOLUME 10.3 fL (7.4-10.4); PLATELET COUNT 197 10x3/uL (130-400); RBC 3.17 10x6/uL (4.20-6.10); WBC 6.8 10x3/uL (4.8-10.8)
[2018-06-07 05:28] LABS: CREATININE - SERUM 6.3 mg/dL (0.6-1.3); MAGNESIUM - SERUM 2.1 mg/dL (1.8-2.4)
[2018-06-07 07:13] LABS: BASOPHILS 1 % (0-2); LYMPHOCYTES 19 % (15-50); MONOCYTES 6 % (2-11); NEUTROPHILS 73 % (40-80); PLATELET ESTIMATE DECREASED
--- NOTE | 2018-06-07 07:57 | NUR ---
RESUMING PT CARE CARE, PT LAYING IN BED WITH EYES CLOSED, RESPIRATIONS EVEN AND UNLABORED. BED IS IN LOWEST POSTION WITH RAILS UP X2, CALL LIGHT IN REACH. WILL CONTINUE TO MONITOR AND FOLLOW PLAN OF CARE.
[2018-06-07 09:27] VITALS: BP 112/63
--- NOTE | 2018-06-07 09:51 | NUR ---
RESTS IN BED WITH EYES CLOSED. RESP UL ON . CALL LIGHT IN REACH. WILL CONT. PLAN OF CARE.
[2018-06-07 11:42] VITALS: BP 114/70
[2018-06-07 15:57] VITALS: BP 119/65
--- NOTE | 2018-06-07 19:25 | NUR ---
AWAKE RECEIVING RESP UPDRAFT TX. DENIES ANY NEEDS. BED IS LOW WITH SR UP X2. IV IN L WRIST INTACT SL. PLACED CALL LIGHT IN REACH.
[2018-06-07 20:00] VITALS: BP 123/63
--- NOTE | 2018-06-07 21:45 | NUR ---
ADMIN SCHED MEDS WITH SIPS OF WATER. REPOSITIONED UP IN BED.
--- NOTE | 2018-06-08 00:35 | NUR ---
LINSEED OIL BOILER PRESENT IN ROOM TAKING VS. DENIES ANY NEEDS.
[2018-06-08 04:00] VITALS: BP 125/66
[2018-06-08 05:44] LABS: BASOPHILS 0.3 % (0-2); EOSINOPHILS 1.1 % (0-7); HEMATOCRIT 28.8 % (42.0-54.0); IMMATURE GRANULOCYTES 1.6 % (0-5); LYMPHOCYTES 9.5 % (15-50); MCH 29.4 pg (26.0-34.0); MCHC 31.3 g/dL (31.0-37.0); MCV 94.1 fL (80.0-100.0); MEAN PLATELET VOLUME 9.7 fL (7.4-10.4); MONOCYTES 10.6 % (2-11); NEUTROPHILS 76.9 % (40-80); PLATELET COUNT 210 10x3/uL (130-400); RBC 3.06 10x6/uL (4.20-6.10); RDW 15.7 % (11.5-14.5); WBC 6.3 10x3/uL (4.8-10.8)
--- NOTE | 2018-06-08 06:00 | NUR ---
NONDESTRUCTIVE TESTER GAVE A BATH. SIGNED CONSENTS FOR HEMOSPLIT.
[2018-06-08 06:05] LABS: CARBON DIOXIDE 27.3 mmol/L (21.0-32.0); CREATININE - SERUM 6.4 mg/dL (0.6-1.3); MAGNESIUM - SERUM 2.1 mg/dL (1.8-2.4)
[2018-06-08 06:17] LABS: ANION GAP 13.8 mmol/L (8-16); POTASSIUM - SERUM 4.1 mmol/L (3.5-5.1)
[2018-06-08 06:18] LABS: CALCIUM 6.6 mg/dL (8.5-10.1)
--- NOTE | 2018-06-08 06:23 | NUR ---
TOOK RESULTS OF CA+ 6.6 CRITICAL ACCORDING TO LAB. BEDSIDE NURSE Gurvinder RAMIREZ RN INFORMED.
--- NOTE | 2018-06-08 07:39 | NUR ---
EKG DONE AND PLACED ON CHART. EKG SHOWING CAF 86. CHEST TUBE CHAMBER FULL, CALLED [employer] TO GET NEW CHEST TUBE CHAMBER. PT RESTING COMFORTABLY IN BED, DENIES ANY NEEDS AT THIS TIME. RESP EVEN AND NONLABORED ON 2L. LT WRITS IV SL. PT NPO FORE HEMOSPLIT PLACEMENT. CALL LIGHT IN REACH, NAD NOTED, WILL CONTINUE PLAN OF CARE.
[2018-06-08 08:56] VITALS: BP 131/74
--- NOTE | 2018-06-08 09:17 | NUR ---
PRE-OP MEDS GIVEN AT THIS TIME.
--- NOTE | 2018-06-08 10:04 | NUR ---
PT TRANSFERED TO OR VIA BED, NAD NOTED.
[2018-06-08 11:50] VITALS: BP 102/62
--- NOTE | 2018-06-08 11:53 | NUR ---
RECEIVED PT BACK TO ROOM, VITAL SIGNS STABLE, PLACED PT ON FREQUENT VITAL SIGNS. PT DENIES ANY NEEDS AT THIS TIME. CALL LIGHT IN REACH, NAD NOTED, WILL CONTINUE TO MONITOR.
--- NOTE | 2018-06-08 13:15 | NUR ---
Nutrition follow-up: Pt NPO for hemosplit placement today PO intake of renal diet has been ~50% average of meals Labs reviewed No BM charted since 06/03 Wt: 184# RDN following.
--- NOTE | 2018-06-08 14:06 | NUR ---
PT FINISHED EATING LUNCH, DENIES ANY NEEDS AT THIS TIME. CALL LIGHT IN REACH, NAD NOTED, WILL CONTINUE TO MONITOR.
--- NOTE | 2018-06-08 19:19 | NUR ---
RESUMING PATIENT CARE. PATIENT IS CURRENTLY IN DIALYSIS.
[2018-06-08 20:00] VITALS: BP 126/67
--- NOTE | 2018-06-08 21:10 | NUR ---
PATIENT RETURNED FROM DIALYSIS. PATIENT IS ALERT AND ORIENTED. RESTING COMFORTABLY IN BED. PATIENT RESUMING ON 5L HIGH FLOW NC. RESPIRATIONS ARE EVEN AND UNLABORED. NO S/S OF DISTRESS. NO C/O PAIN. PATIENT VERBALIZED NO NEEDS AT THIS TIME. CALL LIGHT WITHIN REACH. WILL CPOC.
[2018-06-09 00:30] VITALS: BP 124/74
--- NOTE | 2018-06-09 02:05 | NUR ---
PATIENT RESTING COMFORTABLY IN BED. RESPIRATINS ARE EVEN AND UNLABORED. NO S/S OF DISTRESS. NO C/O PAIN. CALL LIGHT WITHIN REACH. WILL CPOC.
[2018-06-09 04:00] VITALS: BP 137/75
[2018-06-09 05:17] LABS: BASOPHILS 0 % (0-2); EOSINOPHILS 0 % (0-7); HEMATOCRIT 26.8 % (42.0-54.0); HEMOGLOBIN 8.7 g/dL (13.5-17.5); IMMATURE GRANULOCYTES 0.8 % (0-5); LYMPHOCYTES 6.5 % (15-50); MCH 29.6 pg (26.0-34.0); MCHC 32.5 g/dL (31.0-37.0); MEAN PLATELET VOLUME 9.9 fL (7.4-10.4); MONOCYTES 4.7 % (2-11); PLATELET COUNT 192 10x3/uL (130-400); RBC 2.94 10x6/uL (4.20-6.10); RDW 15.3 % (11.5-14.5); WBC 5.1 10x3/uL (4.8-10.8)
[2018-06-09 05:21] LABS: MCV 91.2 fL (80.0-100.0)
[2018-06-09 05:37] LABS: ANION GAP 13.5 mmol/L (8-16); CALCIUM 7.1 mg/dL (8.5-10.1); CARBON DIOXIDE 25.7 mmol/L (21.0-32.0); PHOSPHOROUS 6.3 mg/dL (2.5-4.9); POTASSIUM - SERUM 4.2 mmol/L (3.5-5.1)
[2018-06-09 05:38] LABS: CREATININE - SERUM 4.7 mg/dL (0.6-1.3)
[2018-06-09 07:00] VITALS: BP 129/72
--- NOTE | 2018-06-09 07:45 | NUR ---
AM ROUNDS COMPLETED. INTRODUCED MYSELF TO PT PRIMARY RN FOR TODAYS SHIFT. PT IS A&O SITTING UP IN BED RESTING QUIETLY. SHIFT ASSESSMENT COMPLETED. RR NONLABORED WITH NC @2L IN PLACE. PT HAS A CHEST TUBE TO HIS R.SIDE DRAINING YELLOW FLUID TO CANISTER AT 20CM WALL SUCTION. PT DENIES ANY PAIN OR NEEDS. WAITING ON BREAKFAST. CL IN REACH, BED IN LOWEST, SIDE RAILS X2 AND KEVIN PAD IN PLACE. WILL CTM.
[2018-06-09 08:16] LABS: HEPATITIS C ANTIBODY 0.1 S/CO RAT (0.0-0.9)
--- NOTE | 2018-06-09 12:20 | NUR ---
PTS CHEST TUBE DRAINING TO CANISTER OFF R.SIDE OF BED. YELLOW FLUID. PT STATES HE IS DOING WELL AND BREATHING WITHOUT ANY DIFFICULTIES. ASSISTED PT UP IN BED SO HE CAN EAT LUNCH. CL IN REACH, BED IN LOWEST, SIDE RAILS X2. WILL CTM.
[2018-06-09 13:02] VITALS: BP 125/66
--- NOTE | 2018-06-09 14:55 | NUR ---
DIALYSIS CALLED FOR PT HOWEVER PT IS ON WALL SUCTION AND THEY DO NOT HAVE THAT SO PT WILL HAVE TO BE AN IN ROOM PT. DISCUSSED WITH DIALYSIS AND THEY WILL FIND OUT IF HE NEEDS TO GO TODAY OR NOT.
[2018-06-09 16:31] VITALS: BP 120/66
--- NOTE | 2018-06-09 19:32 | NUR ---
PT SITTING UP IN BED ALERT AND ORIENTED. PT RESPIRATIONS EVEN AND UNLABORED. PT ON 2L NC. O2-95%. PT DENIES ANY NEEDS OR PAIN AT THIS TIME. BED LOW CALL LIGHT WITHIN REACH. WILL CONTINUE TO MONITOR.
[2018-06-09 20:00] VITALS: BP 126/63
--- NOTE | 2018-06-09 22:03 | NUR ---
EDUCATED PT ON HOW TO USE INSINATIVE SPIROMETER. PT USING IT EVERY COMMERCIAL BREAK. PT IS ALKERT AND ORIENTED RESPIRATIONS EVEN AND UNLABORED. PT DENIES ANY NEEDS OR PAIN AT THIS TIME. BED LOW CALL LIGHT WITHIN REACH. WILL CONTINUE TO MONITOR.
[2018-06-10 00:04] VITALS: BP 134/71
[2018-06-10 04:00] VITALS: BP 128/77
--- NOTE | 2018-06-10 04:14 | NUR ---
RN NOTE: PATIENT RESTING COMFORTABLY. RESPIRATIONS ARE EVEN AND UNLABORED. NO S/S DISTRESS. NO C/O PAIN. CALL LIGHT WITHIN REACH. WILL CPOC.
[2018-06-10 06:45] LABS: ANION GAP 14.4 mmol/L (8-16); CARBON DIOXIDE 25.5 mmol/L (21.0-32.0); CREATININE - SERUM 4.7 mg/dL (0.6-1.3); HEMATOCRIT 27.1 % (42.0-54.0); HEMOGLOBIN 8.6 g/dL (13.5-17.5); MCH 29.4 pg (26.0-34.0); MCHC 31.7 g/dL (31.0-37.0); MCV 92.5 fL (80.0-100.0); MEAN PLATELET VOLUME 9.6 fL (7.4-10.4); PLATELET COUNT 196 10x3/uL (130-400); POTASSIUM - SERUM 3.9 mmol/L (3.5-5.1); RBC 2.93 10x6/uL (4.20-6.10); RDW 15.6 % (11.5-14.5); WBC 7.3 10x3/uL (4.8-10.8)
[2018-06-10 06:57] LABS: CALCIUM 6.9 mg/dL (8.5-10.1)
[2018-06-10 07:01] LABS: EOSINOPHILS 1 % (0-7); LYMPHOCYTES 14 % (15-50); MONOCYTES 3 % (2-11); NEUTROPHILS 82 % (40-80); PLATELET ESTIMATE DECREASED
--- NOTE | 2018-06-10 07:28 | NUR ---
AM ROUNDS COMPLETED. INTRODUCED MYSELF TO PT PRIMARY RN FOR TODAYS SHIFT. FOCUSED SHIFT ASSESSMENT COMPLETED. PT IS RESTING QUIETLY IN BED WITH EYES CLOSED RR NONLABORED. NO S/S OF DISTRESS OR ANY CURRENT NEEDS AT THIS TIME. CL IN REACH, BED IN LOWEST, SIDE RAILS X2. WILL CTM.
[2018-06-10 08:08] VITALS: BP 161/73
[2018-06-10 12:02] VITALS: BP 124/62
--- NOTE | 2018-06-10 12:27 | NUR ---
MILKED CHEST TUBE AND CHECKED FOR KINKS. CHEST TUBE DRAINING OFF R.SIDE OF BED WITH NO ISSUES NOTED. NO S/S OF AIR LEAK DETECTED AND ITS DRAINING YELLOW FLUID. PT SITTING UP IN BED RESTING QUIETLY. DIALYSIS AT BEDSIDE SETTING UP FOR SESSION. NO CURRENT NEEDS. WILL CTM.
[2018-06-10 14:19] LABS: FUNGUS MYCOLOGY CULTURE Preliminary report (())
--- NOTE | 2018-06-10 15:23 | NUR ---
BEDSIDE DIALYSIS COMPLETED. PT TOLERATED WITHOUT ANY ISSUES. PT DID C/O SLIGHT PAIN BUT STATES HE IS FINE NOW. CHEST TUBE DRAINING TO CANISTER WITHOUT ANY S/S OF AIR LEAK OR ISSUES. CL IN REACH, BED IN LOWEST, SIDE RAILS X2. WILL CTM.
[2018-06-10 16:14] VITALS: BP 129/71
--- NOTE | 2018-06-10 18:36 | NUR ---
MARKED CHEST TUBE OFF FOR DRAINAGE ON MY SHIFT. PT IS FINALLY SLOWING DOWN AND HAD A TOTAL OF 240CC YELLOW FLUID OUT ON MY SHIFT. CHEST TUBE CURRENTLY AT 420CC WILL PASS ON IN REPORT.
[2018-06-10 20:00] VITALS: BP 120/61
[2018-06-11] VITALS: BP 135/68
--- NOTE | 2018-06-11 02:07 | NUR ---
PT RESTING IN BED COMFORTABLY RESPIRATIONS EVEN AND UNLABORED. PT DENIES ANY NEEDS OR PAIN AT THIS TIME. BED LOW CALL LIGHT WITHIN REACH. WILL CONTINUE TO MONITOR.
[2018-06-11 04:00] VITALS: BP 117/54
[2018-06-11 06:26] LABS: BASOPHILS 0.1 % (0-2); EOSINOPHILS 2.3 % (0-7); HEMATOCRIT 28.7 % (42.0-54.0); HEMOGLOBIN 9.2 g/dL (13.5-17.5); IMMATURE GRANULOCYTES 1.3 % (0-5); LYMPHOCYTES 8.7 % (15-50); MCH 29.8 pg (26.0-34.0); MCHC 32.1 g/dL (31.0-37.0); MCV 92.9 fL (80.0-100.0); MONOCYTES 8.9 % (2-11); NEUTROPHILS 78.7 % (40-80); PLATELET COUNT 194 10x3/uL (130-400); RBC 3.09 10x6/uL (4.20-6.10); RDW 15.3 % (11.5-14.5); WBC 7.7 10x3/uL (4.8-10.8)
[2018-06-11 06:55] LABS: CARBON DIOXIDE 29.3 mmol/L (21.0-32.0)
--- NOTE | 2018-06-11 07:07 | NUR ---
PT CHEST TUBE OUTPUT 125ML. PT ALERT AND ORIENTED DENIES PAIN AT THIS TIME. WILL CONTINUE TO MONITOR
[2018-06-11 07:29] LABS: CREATININE - SERUM 3.4 mg/dL (0.6-1.3); POTASSIUM - SERUM 3.3 mmol/L (3.5-5.1)
[2018-06-11 07:30] LABS: CALCIUM 6.7 mg/dL (8.5-10.1)
--- NOTE | 2018-06-11 07:30 | NUR ---
RECEIVED A/A/OX4. DENIES ANY PAIN OR DISCOMFORT. NO REQUESTS VOICED. CHEST TUBE IN PLACE RIGHT CHEST WITH DRESSING C/D/I. DRAINING LIGHT YELLOW LIQUID. RIGHT HEMESPLIT IN PLACE RIGHT CHEST WITH NO PROBLEMS NOTED. BED IN LOWEST POSITION WITH SIDE RAILS UP X 2 AND CALL LIGHT IN REACH. WILL OBSERVE AND CONTINUE POC.
[2018-06-11 07:57] VITALS: BP 126/66
--- NOTE | 2018-06-11 09:50 | NUR ---
RESTS IN BED WITHOUT NEEDS VOICED. CALL LIGHT IN REACH. WILL MONITOR.
[2018-06-11 11:52] VITALS: BP 111/62
[2018-06-11 15:31] VITALS: BP 125/59
--- NOTE | 2018-06-11 19:38 | NUR ---
RESUMING PT CARE. PT IS ALERT LAYING IN THE BED WATCHING TV WITH NO C/O VOICED AT THIS TIME. RESPIRATIONS EVEN AND UNLABORED. BED IN THE LOW POSITION WITH CALL LIGHT IN REACH. SIDE RAILS UP X 2. WILL CONTINUE TO MONITOR PT AND FOLLOW PLAN OF CARE.
[2018-06-11 20:00] VITALS: BP 120/63
--- NOTE | 2018-06-12 02:53 | NUR ---
LYING IN BED, CALL LIGHT IN REACH. WILL CONTINUE WITH PLAN OF CARE. 90 CAF ON TELEMETRY
--- NOTE | 2018-06-12 04:25 | NUR ---
PT IS LAYING IN THE BED WITH EYES CLOSED RESTING COMFORTABLY. RESPIRATIONS ARE EVEN AND UNLABORED. BED IN LOW POSITION WITH CALL LIGHT IN REACH. SIDE RAILS UP X 2. WILL CONTINUE TO MONITOR PT AND FOLLOW PLAN OF CARE.
[2018-06-12 05:02] LABS: BASOPHILS 0.1 % (0-2); EOSINOPHILS 0.8 % (0-7); HEMATOCRIT 29.3 % (42.0-54.0); HEMOGLOBIN 9.5 g/dL (13.5-17.5); IMMATURE GRANULOCYTES 1.4 % (0-5); LYMPHOCYTES 9.3 % (15-50); MCH 30.2 pg (26.0-34.0); MCHC 32.4 g/dL (31.0-37.0); MEAN PLATELET VOLUME 9.8 fL (7.4-10.4); MONOCYTES 10.3 % (2-11); NEUTROPHILS 78.1 % (40-80); PLATELET COUNT 193 10x3/uL (130-400); RBC 3.15 10x6/uL (4.20-6.10); RDW 15.3 % (11.5-14.5); WBC 8.4 10x3/uL (4.8-10.8)
[2018-06-12 05:14] LABS: ANION GAP 9.7 mmol/L (8-16); CARBON DIOXIDE 28.8 mmol/L (21.0-32.0); CREATININE - SERUM 3.8 mg/dL (0.6-1.3); POTASSIUM - SERUM 3.5 mmol/L (3.5-5.1)
[2018-06-12 05:23] LABS: CALCIUM 6.7 mg/dL (8.5-10.1)
--- NOTE | 2018-06-12 08:00 | NUR ---
NURSE FROM IR HERE TO PULL CHEST TUBE. PT TOLERATED WELL. DRESSING PLACED AND IS C/D/I. PT DENIES ANY PAIN AND NO REQUESTS VOICED. BED IN LOWEST POSITION WITH SIDERAILS UP X 2 AND CALL LIGHT IN REACH. ASSESSMENT COMPLETED. PT IS A/A/OX4. WILL COPC
[2018-06-12 09:12] VITALS: BP 146/59
--- NOTE | 2018-06-12 09:35 | NUR ---
LEAVING FOR DIALYSIS BY BED. WILL CONT. PLAN OF CARE.
--- NOTE | 2018-06-12 12:21 | NUR ---
Nutrition follow-up: Diet: Renal PO intake ~50-75% of meals Labs reviewed pt started dialysis this hospital visit Wt: 184# +BM RDN following.
[2018-06-12 14:37] VITALS: BP 111/57
--- NOTE | 2018-06-12 19:29 | NUR ---
RESUMING PT CARE. PT LAYING IN BED WITH EYES CLOSED RESTING COMFORTABLY. RESPIRATIONS EVEN AND UNLABORED. BED IN LOW POSITION WITH CALL LIGHT IN REACH. SIDE RAILS UP X 2. WILL CONTINUE TO MONITOR PT AND FOLLOW PLAN OF CARE.
[2018-06-12 20:31] VITALS: BP 122/59
[2018-06-12 23:50] VITALS: BP 123/57
--- NOTE | 2018-06-13 00:10 | NUR ---
PATIENT SLEEPING IN BED, LYING ON RIGHT SIDE. RESP EVEN AND UNLABORED. BED IN LOWEST POSITION, CALL LIGHT IN REACH.
--- NOTE | 2018-06-13 01:54 | NUR ---
PT LAYING IN BED WITH EYES CLOSED RESTING COMFORTABLY. RESPIRATIONS EVEN AND UNLABORED. BED IN LOW POSITION WITH CALL LIGHT IN REACH. SIDE RAILS UP X 2. WILL CONTIINUE TO MONITOR PT AND FOLLOW PLAN OF CARE.
[2018-06-13 03:50] VITALS: BP 124/71
[2018-06-13 05:39] LABS: ALBUMIN 1.5 g/dL (3.4-5.0); ANION GAP 12.3 mmol/L (8-16); BILIRUBIN - TOTAL 0.46 mg/dL (0.2-1.3); CARBON DIOXIDE 27.4 mmol/L (21.0-32.0); CREATININE - SERUM 2.9 mg/dL (0.6-1.3); MAGNESIUM - SERUM 1.6 mg/dL (1.8-2.4); POTASSIUM - SERUM 3.7 mmol/L (3.5-5.1); PROTEIN - SERUM 4.6 g/dL (6.4-8.2)
[2018-06-13 05:51] LABS: CALCIUM 6.5 mg/dL (8.5-10.1)
[2018-06-13 06:23] LABS: BASOPHILS 0.1 % (0-2); EOSINOPHILS 1.3 % (0-7); HEMATOCRIT 27.9 % (42.0-54.0); IMMATURE GRANULOCYTES 1.1 % (0-5); LYMPHOCYTES 8.6 % (15-50); MCH 29.7 pg (26.0-34.0); MCHC 32.3 g/dL (31.0-37.0); MCV 92.1 fL (80.0-100.0); MEAN PLATELET VOLUME 10.1 fL (7.4-10.4); MONOCYTES 10.2 % (2-11); NEUTROPHILS 78.7 % (40-80); PLATELET COUNT 207 10x3/uL (130-400); RBC 3.03 10x6/uL (4.20-6.10); WBC 7.9 10x3/uL (4.8-10.8)
--- NOTE | 2018-06-13 07:43 | NUR ---
PATIENT IS ALERT AND AWAKE. LIGHTS ON, HE IS SITTING UP IN THE BED WORKING ON A WORD PUZZLE. HE DENIES ANY NEEDS AT THIS TIME. HE HAD HIS CHEST TUBE REMOVED YESTERDAY AND HIS DRESSING ON RIGHT BACK IS CLEAN DRY AND INTACT. HE IS HARD OF HEARING. TELEMETRY SHOWS 81 AFIB CONTROLLED.
--- NOTE | 2018-06-13 07:52 | NUR ---
RESTING QUIETLY NAD NOTED MONITOR SHOWS CONTROLED AFIB RATE 75
--- NOTE | 2018-06-13 10:12 | NUR ---
PATIENTS IV IS OUT. HE SAYS HE DID NOT MEAN TO PULL IT OUT, AND THINKS IT FELL OUT. CATHETER IS INTACT.
[2018-06-13 10:50] VITALS: BP 102/46
--- NOTE | 2018-06-13 15:31 | NUR ---
NEW IV START IN LEFT HAND TWO STICKS .22G. PATIENT TOLERATED.
--- NOTE | 2018-06-13 19:31 | NUR ---
RECEIVED REPORT, WILL ASSUME CARE OF PT, PT IS SLEEPING, NO DISTRESS NOTICED AT THIS TIME, BED IS LOW, SRX2, CALL LIGHT IN REACH, WILL CONTINUE PLAN OF CARE
[2018-06-13 21:32] VITALS: BP 116/60
--- NOTE | 2018-06-13 23:51 | NUR ---
RESTING IN BED WITH NO DISTRESS. RESPS NONLABORED. CALL LIGHT IN REACH. MONITOR AND CPOC.
[2018-06-13 23:55] VITALS: BP 128/59
[2018-06-14 03:55] VITALS: BP 132/64
[2018-06-14 06:24] LABS: BASOPHILS 0.2 % (0-2); EOSINOPHILS 1.1 % (0-7); HEMATOCRIT 27.7 % (42.0-54.0); HEMOGLOBIN 8.9 g/dL (13.5-17.5); IMMATURE GRANULOCYTES 1.2 % (0-5); LYMPHOCYTES 10.3 % (15-50); MCH 29.7 pg (26.0-34.0); MCHC 32.1 g/dL (31.0-37.0); MCV 92.3 fL (80.0-100.0); MEAN PLATELET VOLUME 10.3 fL (7.4-10.4); MONOCYTES 10.4 % (2-11); NEUTROPHILS 76.8 % (40-80); PLATELET COUNT 245 10x3/uL (130-400); WBC 8.4 10x3/uL (4.8-10.8)
[2018-06-14 06:48] LABS: ALBUMIN 1.6 g/dL (3.4-5.0); BILIRUBIN - TOTAL 0.44 mg/dL (0.2-1.3); CARBON DIOXIDE 29.9 mmol/L (21.0-32.0); CREATININE - SERUM 3.2 mg/dL (0.6-1.3); MAGNESIUM - SERUM 1.8 mg/dL (1.8-2.4); PROTEIN - SERUM 4.7 g/dL (6.4-8.2)
[2018-06-14 06:50] LABS: ANION GAP 8.2 mmol/L (8-16); POTASSIUM - SERUM 3.1 mmol/L (3.5-5.1)
--- NOTE | 2018-06-14 07:10 | NUR ---
REPORT RECIEVED FROM MEDICAL COMMUNICATION SPECIALIST. PATIENT LAYING IN BED ON BACK WITH EYES CLOSED AND BREATHING EVENLY. WILL CONTINUE TO PLAN OF CARE. SR UP X 2 BED IN LOW POSITION AND CALL LIGHT IN REACH.
--- NOTE | 2018-06-14 08:15 | NUR ---
PATIENT AWAKE AND ALERT. ORIENTED X 4. ASSESSMENT COMPLETED. VS GOOD. PATIENT DENIES ANY NEEDS OR COMPLAINTS. WILL CONTINUE TO MONITOR.
[2018-06-14 09:40] VITALS: BP 125/49
--- NOTE | 2018-06-14 10:15 | NUR ---
PATIENT COMPLAINS OF A HEADACHE. MEDICATED PER MAR ORDER. SR UP WILL CONTINUE TO MONITOR.
[2018-06-14 14:30] VITALS: BP 101/47
--- NOTE | 2018-06-14 14:50 | NUR ---
PATIENT LAYING ON RIGHT SIDE WITH EYES CLOSED AND BREATHING EVENLY. SR UP X 2 BED IN LOW POSITION AND CALL LIGHT IN REACH.
[2018-06-14 17:53] VITALS: BP 105/56
--- NOTE | 2018-06-14 18:27 | NUR ---
PATIENT SITTING UP WATCHING TV. DENIES ANY NEEDS OR PAIN. SR UP X 2 BED IN LOW POSTION AND CALL LIGHT IN REACH.
--- NOTE | 2018-06-14 19:30 | NUR ---
RECEIVED REPORT, WILL ASSUME CARE OF PT, DENIES ANY NEEDS AT THIS TIME, BED IS LOW, SRX2, CALL LIGHT IN REACH, WILL CONTINUE PLAN OF CARE
[2018-06-14 20:00] VITALS: BP 120/59
[2018-06-15 01:00] VITALS: BP 109/52
[2018-06-15 04:00] VITALS: BP 112/61
--- NOTE | 2018-06-15 05:17 | NUR ---
RESTING WITH NO DISTRESS. MONITOR AND CPOC.
[2018-06-15 07:04] LABS: ALBUMIN 1.5 g/dL (3.4-5.0); ANION GAP 12.6 mmol/L (8-16); BILIRUBIN - TOTAL 0.41 mg/dL (0.2-1.3); CARBON DIOXIDE 25.8 mmol/L (21.0-32.0); CREATININE - SERUM 3.4 mg/dL (0.6-1.3); MAGNESIUM - SERUM 1.7 mg/dL (1.8-2.4); POTASSIUM - SERUM 3.4 mmol/L (3.5-5.1); PROTEIN - SERUM 4.7 g/dL (6.4-8.2)
[2018-06-15 07:12] LABS: CALCIUM 6.7 mg/dL (8.5-10.1)
[2018-06-15 07:18] LABS: BASOPHILS 0.2 % (0-2); EOSINOPHILS 1.7 % (0-7); HEMATOCRIT 27.2 % (42.0-54.0); HEMOGLOBIN 8.7 g/dL (13.5-17.5); IMMATURE GRANULOCYTES 0.6 % (0-5); LYMPHOCYTES 11.2 % (15-50); MCH 29.5 pg (26.0-34.0); MCV 92.2 fL (80.0-100.0); MONOCYTES 11.6 % (2-11); NEUTROPHILS 74.7 % (40-80); PLATELET COUNT 281 10x3/uL (130-400); RBC 2.95 10x6/uL (4.20-6.10); RDW 15.1 % (11.5-14.5); WBC 8.1 10x3/uL (4.8-10.8)
--- NOTE | 2018-06-15 07:40 | NUR ---
REPORT RECEIVED. WILL CONTINUE WITH POC. PT CURRENTLY LYING SEMI FOWLERS. CALL LIGHT W/I REACH. PT IS AAO AND UP WITH ASSIST. FALL PRECAUTIONS IN PLACE. RR EVEN AND UNLABORED ON RA. L.HAND PIV IS SALINE LOCKED. PT DENIES ANY NEEDS AT THIS TIME. WILL CTM. RECEIVED CRITICAL CALCIUM OF 6.7, NOTIFIED .
[2018-06-15 08:37] VITALS: BP 131/64
--- NOTE | 2018-06-15 11:22 | NUR ---
RESTING QUIETLY. MONITOR SHOWS CAF WITH OCC PVCS AT THE RATE OF 83
--- NOTE | 2018-06-15 13:25 | NUR ---
DIALYSIS COORDINATOR: Patient has been accepted at [facility] on a Friday/Friday/Friday schedule: Arrive at 7:15am for 7:45am On-time. The clinic needs the patient to come into the office on 06/16/18, sometime before 4:00pm to complete new patient paperwork. Patient can then start in-center on 06/17/18 @ 7:15am. ANTONIO DAVID.
--- NOTE | 2018-06-15 15:26 | MORECARE ---
CASE MANAGEMENT DISCHARGE SUMMARY PATIENT: JOS ESPINAL UNIT: [id number] ADM DATE: 06/01/18 AGE: 87 : 32 SEX: M ROOM/BED: D.2109 AUTHOR: ABELINO,DOC PHYSICIAN: REFERRING PHYSICIAN: TANG DIANE MD DATE OF SERVICE: 06/15/18 Discharge Plan Patient Name: JOS ESPINAL Facility: [facility]:[place] : 1930 Planned Disposition: Home Anticipated Discharge Date: 06/04/18 Discharge Date: Expected LOS: 3 Initial Reviewer: [email or web address] Initial Review Date: 06/01/2018 Generated: 06/15/18 4:25 pm Comments DCP- Discharge Planning Updated by [email or web address]: Cedric Brennan on 06/04/18 9:[address] Patient Name: JOS ESPINAL Encounter No: [id number] : 1930 Primary Insurance: MEDICARE A & B Anticipated DC Date: 06-04-2018 Planned Disposition: HOME DCP follow-up note: CM SPOKE TO PT IN ROOM AFTER READMISSION, [facility] AND WANTS TO BILL HIS MEDICARE TO REMAIN AT [place]. CM CALLED [place] EXPEDITOR SHARON, , INFORMED OF PT'S DISCHARGE HOME AND READMIT ON SAME DAY OF DISCHARGE, 06-01-18 WELL PT'S DECISION TO REFUSE [facility] TRANSFER. CM TO CONTINUE TO FOLLOW AND ASSIST WITH ANY DISCHARGE NEEDS. JOSEP PAL DCP- Discharge Planning Updated by [id number]: Juliana Carmichael on 06/02/18 11:[address] Patient Name: JOS ESPINAL Admission Status: ER Accout number: [id number] Admission Date: 06-01-2018 : 1930 Admission Diagnosis: Attending: TANG DIANE Current LOS: 1 Anticipated DC Date: 06-04-2018 Planned Disposition: Primary Insurance: MEDICARE A & B Discharge Planning Comments: CM met with patient to complete initial dc planning assessment. CM educated patient on the CM role and verbal consent given by patient to complete assessment. Patient lives at home and his disabled step son lives with him. He reports he is independent in his care at home. Patient very short of breath during conversation and reports he does not wear o2 at home. Pulse ox reading 91-93 while cm in room. Notified nurse who will put oxygen on the patient. Walk test will be needed prior to discharge to see if the patient will need oxygen at home. At discharge patient plans to return home and feels this is a safe discharge. CM discussed availability of home health, rehab services, and medical equipment. Patient denied known discharge needs at this time. CM will continue to follow and will assist as needed with dc plans/needs. Intellectual Property Legal Assistant: Juliana Carmichael DCPIA - Discharge Planning Initial Assessment Updated by [email or web address]: Juliana Carmichael on 06/02/18 12:08 pm * Is the patient Alert and Oriented? Yes * How many steps to enter\exit or inside your home? * PCP Dr. Bella in [place] Dr. Goldstein - scale operator in [place] * [facility] * Preadmission Environment Home with Family * ADLs Independent * Equipment None * List name and contact numbers for known caregivers / representatives who currently or will assist patient after discharge: Scott Crawford - friend/neighbor - [phone] Светлана Mayo - daughter - [phone] (lives in [place]) * Verbal permission to speak to the caregivers and representatives has been obtained from the patient. Yes * Community resources currently utilized None * Additional services required to return to the preadmission environment? No * Can the patient safely return to the preadmission environment? Yes * Has this patient been hospitalized within the prior 30 days at any hospital? Yes Coverage Notice Reviewer: [id number] - Cedric Brennan Notice Issued Date-Time: 06/15/2018 15:15 Notice Type: IM Discharge Notice Notice Delivered To: Patient Relationship to Patient: Raspberry Checker Name: Delivery Method: HAND - Hand Delivered Lluvia Days: Prior Verbal Notification: Recipient Understood Notice: Yes Recipient Signature: Yes Med Rec Note Co-signed by Attending: Coverage Notice Comment: Last DP export: 06/04/18 9:50 a Patient Name: JOS ESPINAL Page [id number] at 1526 All edits/amendments must be made on the electronic document DICTATION DATE: 06/15/182 SPEECH LANG PATH THERAPIST: JENNY 06/15/18 2765 RPT#: [id number] DC DATE: STATUS: ADM IN [facility] [address] [place] [address] END OF REPORT
--- NOTE | 2018-06-15 15:36 | MORECARE ---
CASE MANAGEMENT DISCHARGE SUMMARY PATIENT: JOS ESPINAL UNIT: [id number] ADM DATE: 06/01/18 AGE: 87 : 32 SEX: M ROOM/BED: D.2109 AUTHOR: ABELINO,DOC PHYSICIAN: REFERRING PHYSICIAN: TANG DIANE MD DATE OF SERVICE: 06/15/18 Discharge Plan Patient Name: JOS ESPINAL Facility: [facility]:[place] : 1930 Planned Disposition: Home Anticipated Discharge Date: 06/04/18 Discharge Date: Expected LOS: 3 Initial Reviewer: [email or web address] Initial Review Date: 06/01/2018 Generated: 06/15/18 4:36 pm Comments DCP- Discharge Planning Updated by [email or web address]: Cedric Chandler on 06/15/18 2:[address] Patient Name: JOS ESPINAL Encounter No: [id number] : 1930 Primary Insurance: MEDICARE A & B Anticipated DC Date: 06-04-2018 Planned Disposition: Home DCP follow-up note: CM RECEIVED OUTPATIENT DIALYSIS WELCOME LETTER, PROVIDED AND DISCUSSED WITH PT IN ROOM. PT REPORTS UNDERSTANDING. CM DISCUSSED DISCHARGE NEEDS, AVAILABILITY OF REHAB SERVICES HOME HEALTH AND MEDICAL EQUIPMENT. PT DENIES DISCHARGE NEEDS, ASKED CM FOR A MAP TO THE DIALYSIS CENTER [facility] HE HAS NEVER BEEN THERE. PT IS NOT SURE IF HE WILL BE DRIVING HIMSELF TO AND FROM DIALYSIS OR IF HE WILL BE USING A FRIEND TO ASSIST. PT REPORTS HE HAS ABILITY TO GO TO THE DIALYSIS UNIT SCHEDULED. PT REPORTS HE HAD A FRIEND DRIVE HIM HERE TO THE HOSPITAL AND WILL HAVE A FRIEND TO PICK HIM UP AT DISCHARGE. IMPORTANT MESSAGE FROM MEDICARE PROVIDED AND DISCUSSED. CM PROVIDED PT WITH MAP INDICATING LOCATION OF [facility]. PT REPORTS UNDERSTANDING, DENIES FURTHER NEEDS. PT'S OUTPATIENT DIALYSIS SCHEDULE IS: [facility], MWF, 0715AM PT NEEDS TO GO TO DIALYSIS UNIT ON 06-16-18 BEFORE 4PM TO COMPLETE ADMISSION PAPERWORK. Cedric Chandler, CASE MANAGEMENT DCP- Discharge Planning Updated by [email or web address]: Cedric Chandler on 06/04/18 9:[address] Patient Name: JOS ESPINAL Encounter No: [id number] : 1930 Primary Insurance: MEDICARE A & B Anticipated DC Date: 06-04-2018 Planned Disposition: HOME DCP follow-up note: CM SPOKE TO PT IN ROOM AFTER READMISSION, PT [facility] NOT [facility] TO [facility] AND WANTS TO BILL HIS MEDICARE TO REMAIN AT [place]. CM CALLED [place] EXPEDITOR SHARON, , INFORMED OF PT'S DISCHARGE HOME AND READMIT ON SAME DAY OF DISCHARGE, 06-01-18 WELL PT'S DECISION TO REFUSE [facility] TRANSFER. CM TO CONTINUE TO FOLLOW AND ASSIST WITH ANY DISCHARGE NEEDS. CEDRIC CHANDLER, CASE MANAGEMENT DCP- Discharge Planning Updated by [email or web address]: Juliana Carmichael on 06/02/18 11:[address] Patient Name: JOS ESPINAL Admission Status: ER Accout number: [id number] Admission Date: 06-01-2018 : 1930 Admission Diagnosis: Attending: TANG DIANE Current LOS: 1 Anticipated DC Date: 06-04-2018 Planned Disposition: Primary Insurance: MEDICARE A & B Discharge Planning Comments: CM met with patient to complete initial dc planning assessment. CM educated patient on the CM role and verbal consent given by patient to complete assessment. Patient lives at home and his disabled step son lives with him. He reports he is independent in his care at home. Patient very short of breath during conversation and reports he does not wear o2 at home. Pulse ox reading 91-93 while cm in room. Notified nurse who will put oxygen on the patient. Walk test will be needed prior to discharge to see if the patient will need oxygen at home. At discharge patient plans to return home and feels this is a safe discharge. CM discussed availability of home health, rehab services, and medical equipment. Patient denied known discharge needs at this time. CM will continue to follow and will assist as needed with dc plans/needs. Market Researcher: Juliana Carmichael DCPIA - Discharge Planning Initial Assessment Updated by [email or web address]: Juliana Carmichael on 06/02/18 12:08 pm * Is the patient Alert and Oriented? Yes * How many steps to enter\exit or inside your home? * PCP Dr. Bella in [place] Dr. Goldstein - cutter [employer] in [place] * Pharmacy [place] for [place] of his [place]s. * Preadmission Environment Home with Family * ADLs Independent * Equipment None * List name and contact numbers for known caregivers / representatives who currently or will assist patient after discharge: Scott Crawford - friend/neighbor - [phone] Светлана Mayo - daughter - [phone] (lives in [place]) * Verbal permission to speak to the caregivers and representatives has been obtained from the patient. Yes * Community resources currently utilized None * Additional services required to return to the preadmission environment? No * Can the patient safely return to the preadmission environment? Yes * Has this patient been hospitalized within the prior 30 days at any hospital? Yes Coverage Notice Reviewer: [email or web address] Cherie Chandler Notice Issued Date-Time: 06/15/2018 15:15 Notice Type: IM Discharge Notice Notice Delivered To: Patient Relationship to Patient: Coder Name: Delivery Method: HAND - Hand Delivered Lluvia Days: Prior Verbal Notification: Recipient Understood Notice: Yes Recipient Signature: Yes Med Rec Note Co-signed by Attending: Coverage Notice Comment: Last DP export: 06/15/18 2:26 p Patient Name: JOS ESPINAL Page [phone] at 1536 All edits/amendments must be made on the electronic document DICTATION DATE: 06/15/18 1536 PHARMACY RESOURCE TECH: JENNY 06/15/18 1536 RPT#: [id number] DC DATE: STATUS: ADM IN [facility] [address] [place] [address] END OF REPORT
--- NOTE | 2018-06-15 19:30 | NUR ---
RECEIVED REPORT, WILL ASSUME CARE OF PT, SLEEPING, NO DISTRESS NOTICED AT THIS TIME, BED IS LOW, SRX2, CALL LIGHT IN REACH, WILL CONTINUE PLAN OF CARE
[2018-06-15 20:00] VITALS: BP 108/55
--- NOTE | 2018-06-15 21:00 | NUR ---
[id number] 20 HUMULIN AND 10 UNIT LEVERMIR
[2018-06-16 04:55] VITALS: BP 108/58
[2018-06-16 05:31] LABS: BASOPHILS 0.4 % (0-2); EOSINOPHILS 1.1 % (0-7); HEMATOCRIT 26.5 % (42.0-54.0); HEMOGLOBIN 8.3 g/dL (13.5-17.5); IMMATURE GRANULOCYTES 0.8 % (0-5); LYMPHOCYTES 11.3 % (15-50); MCH 28.9 pg (26.0-34.0); MCHC 31.3 g/dL (31.0-37.0); MCV 92.3 fL (80.0-100.0); MONOCYTES 11.5 % (2-11); NEUTROPHILS 74.9 % (40-80); PLATELET COUNT 289 10x3/uL (130-400); RBC 2.87 10x6/uL (4.20-6.10); RDW 14.7 % (11.5-14.5); WBC 8.5 10x3/uL (4.8-10.8)
[2018-06-16 05:50] LABS: ANION GAP 6.1 mmol/L (8-16); CREATININE - SERUM 2.7 mg/dL (0.6-1.3); MAGNESIUM - SERUM 1.6 mg/dL (1.8-2.4); PHOSPHOROUS 3.2 mg/dL (2.5-4.9); POTASSIUM - SERUM 3.1 mmol/L (3.5-5.1)
[2018-06-16 06:15] LABS: CALCIUM 6.7 mg/dL (8.5-10.1)
--- NOTE | 2018-06-16 07:20 | NUR ---
PT RESTING IN BED EYES OPEN. NO C/O PAIN. NO S/S OF ACUTE DISTRESS NOTED. PT UP WITH ASSIST. DRESSING TO RIGHT FLANK, CDI. DIALYSIS -. ON ELECTROLYTE PROTOCOL. IV TO RIGHT HAND, SITE PATENT WITHOUT REDNESS OR SWELLING, SL. RIGHT CHEST HEMASPLIT, THRILL AND BRUIT PRESENT. PT ON TELEMETRY CONTROLLED AFIB 78. PT DENIES ANYTHING FURTHER AT THIS TIME. CALL LIGHT IN REACH. WILL CONTINUE TO MONITOR.
[2018-06-16 08:02] VITALS: BP 110/64
[2018-06-16] MEDS ORDERED: PROTONIX40 MG PO (08:05)
--- NOTE | 2018-06-16 10:18 | NUR ---
IV PATENT. CALL LIGHT IN REACH. WILL CONT. PLAN OF CARE.
[2018-06-16 12:20] VITALS: BP 103/54
--- NOTE | 2018-06-16 13:02 | NUR ---
PT DISCHARGED HOME WITH SON VIA WHEELCHAIR. NO C/O PAIN. NO S/S OF ACUTE DISTRESS NOTED. DISCONTINUED IV, CATHETER TIP INTACT. WENT OVER DISCHARGE INSTRUCTIONS WITH PT, PT ACKNOWLEDGED. PT DENIES ANY CONCERNS AT THIS TIME.
--- NOTE | 2018-06-17 08:06 | MORECARE ---
CASE MANAGEMENT DISCHARGE SUMMARY PATIENT: JOS ESPINAL UNIT: [id number] ADM DATE: 06/01/18 AGE: 87 : 32 SEX: M ROOM/BED: D.2109 AUTHOR: ABELINO,DOC PHYSICIAN: REFERRING PHYSICIAN: TANG DIANE MD DATE OF SERVICE: 06/17/18 Discharge Plan Patient Name: JOS ESPINAL Facility: [facility]:[place] : 1930 Planned Disposition: Home Anticipated Discharge Date: 06/16/18 Discharge Date: 06/16/2018 Expected LOS: 15 Initial Reviewer: [email or web address] Initial Review Date: 06/01/2018 Generated: 06/17/18 9:06 am Comments DCP- Discharge Planning Updated by [email or web address]: Cedric Chandler on 06/15/18 2:[address] Patient Name: JOS ESPINAL Encounter No: [id number] : 1930 Primary Insurance: MEDICARE A & B Anticipated DC Date: 06-04-2018 Planned Disposition: Home DCP follow-up note: CM RECEIVED OUTPATIENT DIALYSIS WELCOME LETTER, PROVIDED AND DISCUSSED WITH PT IN ROOM. PT REPORTS UNDERSTANDING. CM DISCUSSED DISCHARGE NEEDS, AVAILABILITY OF REHAB SERVICES HOME HEALTH AND MEDICAL EQUIPMENT. PT DENIES DISCHARGE NEEDS, ASKED CM FOR A MAP TO THE DIALYSIS CENTER ON [facility] HE HAS NEVER BEEN THERE. PT IS NOT SURE IF HE WILL BE DRIVING HIMSELF TO AND FROM DIALYSIS OR IF HE WILL BE USING A FRIEND TO ASSIST. PT REPORTS HE HAS ABILITY TO GO TO THE DIALYSIS UNIT SCHEDULED. PT REPORTS HE HAD A FRIEND DRIVE HIM HERE TO THE HOSPITAL AND WILL HAVE A FRIEND TO PICK HIM UP AT DISCHARGE. IMPORTANT MESSAGE FROM MEDICARE PROVIDED AND DISCUSSED. CM PROVIDED PT WITH MAP INDICATING LOCATION OF [facility]. PT REPORTS UNDERSTANDING, DENIES FURTHER NEEDS. PT'S OUTPATIENT DIALYSIS SCHEDULE IS: [facility], MWF, 0715AM PT NEEDS TO GO TO DIALYSIS UNIT ON 06-16-18 BEFORE 4PM TO COMPLETE ADMISSION PAPERWORK. Cedric Chandler CASE ELVIA DCP- Discharge Planning Updated by [email or web address]: Cedric Chandler on 06/04/18 9:[address] Patient Name: JOS ESPINAL Encounter No: [id number] : 1930 Primary Insurance: MEDICARE A & B Anticipated DC Date: 06-04-2018 Planned Disposition: HOME DCP follow-up note: CM SPOKE TO PT IN ROOM AFTER READMISSION, PT DOES NOT WANT TO TRANSFER TO [place] AND WANTS TO BILL HIS MEDICARE TO REMAIN AT [place]. CM CALLED [place] EXPEDITOR SHARON, , INFORMED OF PT'S DISCHARGE HOME AND READMIT ON SAME DAY OF DISCHARGE, 06-01-18 WELL PT'S DECISION TO REFUSE [facility] TRANSFER. CM TO CONTINUE TO FOLLOW AND ASSIST WITH ANY DISCHARGE NEEDS. CEDRIC CHANDLER, CASE MANAGEMENT DCP- Discharge Planning Updated by [email or web address]: Juliana Carmichael on 06/02/18 11:[address] Patient Name: JOS ESPINAL Admission Status: ER Accout number: [id number] Admission Date: 06-01-2018 : 1930 Admission Diagnosis: Attending: TANG DIANE Current LOS: 1 Anticipated DC Date: 06-04-2018 Planned Disposition: Primary Insurance: MEDICARE A & B Discharge Planning Comments: CM met with patient to complete initial dc planning assessment. CM educated patient on the CM role and verbal consent given by patient to complete assessment. Patient lives at home and his disabled step son lives with him. He reports he is independent in his care at home. Patient very short of breath during conversation and reports he does not wear o2 at home. Pulse ox reading 91-93 while cm in room. Notified nurse who will put oxygen on the patient. Walk test will be needed prior to discharge to see if the patient will need oxygen at home. At discharge patient plans to return home and feels this is a safe discharge. CM discussed availability of home health, rehab services, and medical equipment. Patient denied known discharge needs at this time. CM will continue to follow and will assist as needed with dc plans/needs. Cutter Machine: Juliana Carmichael DCPIA - Discharge Planning Initial Assessment Updated by [id number]: Juliana Carmichael on 06/02/18 12:08 pm * Is the patient Alert and Oriented? Yes * How many steps to enter\exit or inside your home? * PCP Dr. Bella in [place] Dr. Goldstein - printing agent in [place] * Pharmacy [place] for all of his meds. * Preadmission Environment Home with Family * ADLs Independent * Equipment None * List name and contact numbers for known caregivers / representatives who currently or will assist patient after discharge: Scott Crawford - friend/neighbor - [phone] Светлана Mayo - daughter - [phone] (lives in [place]) * Verbal permission to speak to the caregivers and representatives has been obtained from the patient. Yes * Community resources currently utilized None * Additional services required to return to the preadmission environment? No * Can the patient safely return to the preadmission environment? Yes * Has this patient been hospitalized within the prior 30 days at any hospital? Yes Coverage Notice Reviewer: [email or web address] Cherie Chandler Notice Issued Date-Time: 06/15/2018 15:15 Notice Type: IM Discharge Notice Notice Delivered To: Patient Relationship to Patient: Manhole Builder Name: Delivery Method: HAND - Hand Delivered Lluvia Days: Prior Verbal Notification: Recipient Understood Notice: Yes Recipient Signature: Yes Med Rec Note Co-signed by Attending: Coverage Notice Comment: Last DP export: 06/15/18 2:36 p Patient Name: JOS ESPINAL Page 78050 at 0806 All edits/amendments must be made on the electronic document DICTATION DATE: 06/17/18804 ELECTRICAL LINE MECHANIC: JENNY 06/17/18804 RPT#: [id number] DC DATE:06/16/18 STATUS: DIS IN [facility] [address] [place] [address] END OF REPORT
== END 2018-06-16 13:07 | disposition home or self-care (01) | DRG 673 ==
LOC: D.ER 19:08 → D.M2 21:34 → D.EDHOLD 21:34 → D.M2 06-02 12:42
PROVIDERS: Family Medicine; Internal Medicine Nephrology; Internal Medicine Pulmonary Disease; Radiology Diagnostic Radiology; Surgery; ADMIT Internal Medicine Nephrology
PROC: 0W9930Z Drainage of Right Pleural Cavity with Drainage Device, Percutaneous Approach (ICD-10-PCS; 2018-06-03)
PROC: 0W9930Z Drainage of Right Pleural Cavity with Drainage Device, Percutaneous Approach (ICD-10-PCS; 2018-06-05)
PROC: 05HM33Z Insertion of Infusion Device into Right Internal Jugular Vein, Percutaneous Approach (ICD-10-PCS; 2018-06-08)
PROC: B5131ZA Fluoroscopy of Right Jugular Veins using Low Osmolar Contrast, Guidance (ICD-10-PCS; 2018-06-08)
PROC: 5A1D70Z Performance of Urinary Filtration, Intermittent, Less than 6 Hours Per Day (ICD-10-PCS; 2018-06-08)
PROC: 0JH63XZ Insertion of Tunneled Vascular Access Device into Chest Subcutaneous Tissue and Fascia, Percutaneous Approach (ICD-10-PCS; principal; 2018-06-08 09:45)
DX: N17.9 Acute kidney failure, unspecified (principal); I50.33 Acute on chronic diastolic (congestive) heart failure; J96.01 Acute respiratory failure with hypoxia; J15.6 Pneumonia due to other Gram-negative bacteria; J13 Pneumonia due to Streptococcus pneumoniae; I13.0 Hypertensive heart and chronic kidney disease with heart failure and stage 1 through stage 4 chronic kidney disease, or unspecified chronic kidney disease; J90 Pleural effusion, not elsewhere classified; J98.11 Atelectasis; J44.0 Chronic obstructive pulmonary disease with (acute) lower respiratory infection; J44.1 Chronic obstructive pulmonary disease with (acute) exacerbation; N18.4 Chronic kidney disease, stage 4 (severe); D64.9 Anemia, unspecified; E83.42 Hypomagnesemia; I08.3 Combined rheumatic disorders of mitral, aortic and tricuspid valves; E83.51 Hypocalcemia; I48.2 Chronic atrial fibrillation; Z79.01 Long term (current) use of anticoagulants; D49.4 Neoplasm of unspecified behavior of bladder; I27.20 Pulmonary hypertension, unspecified; E03.9 Hypothyroidism, unspecified; J30.9 Allergic rhinitis, unspecified; E78.5 Hyperlipidemia, unspecified; D50.9 Iron deficiency anemia, unspecified; E87.6 Hypokalemia; Z87.891 Personal history of nicotine dependence

== ENCOUNTER 2018-07-07 14:16 | Outpatient (CLI) | payer MEDICARE ==
[~2018-07-07] VITALS: Ht 180.3 cm; Wt 84.1 kg
[~2018-07-07 14:16] MED LIST changes: +PROTONIX40 MG PO
[2018-07-07 15:31] VITALS: Ht 180.3 cm; Wt 84.1 kg
--- NOTE | 2018-07-07 18:40 | NUR ---
1715 BLOOD CHECKED AT BEDSIDE BY THIS NURSE AND ROCCO GRECO RN, INITIATED AT 50/CC/HR VIA ALARIS PUMP BY 20G JELCO LEFT HAND, BLOOD TUBING. 1730 DENIES PROBLEMS RATE INCREASED TO 150/CC/HR. 1745 PT DENIES PROBLEMS, DECLINED OFFER TO GET OUT OF WC AND TO BED, HAS VOIDED 100CC URINE IN URINAL. RENAL DIET ORDERED 181 RENAL DIET SERVED 1845 BLOOD INFUSING WELL, DENIES PROBLEMS ATE 75% DIET.
--- NOTE | 2018-07-07 19:18 | NUR ---
1905 BLOOD HAS COMPLETED, LINE BEING FLUSHED WITH NS.
--- NOTE | 2018-07-07 20:06 | NUR ---
1904 BLOOD HAS COMPLETED LINE BEING FLUSHED WITH NS 1929 LINE FLUSHED IV DC'D WITH CATH INTACT PT VOIDS 25CC IN URINAL 1944 PT'S CAREGIVER IS HERE RELEASED IN WC TO VAN.
== END 2018-07-07 19:45 | disposition home or self-care (01) ==
LOC: D.OPS 14:16
DX: N18.9 Chronic kidney disease, unspecified (principal); D63.1 Anemia in chronic kidney disease

== ENCOUNTER → 2018-07-09 11:00 | Outpatient (CLI) | payer MEDICARE ==
[2018-07-07 15:31] VITALS: BMI 25.8
[2018-07-09 11:58] LABS: ALBUMIN 1.5 g/dL (3.4-5.0); PRE-ALBUMIN 9.4 mg/dL (18.0-35.7)
== END | disposition home or self-care (01) ==
LOC: D.LAB 11:00
PROVIDERS: Surgery
DX: N18.6 End stage renal disease (principal); E46 Unspecified protein-calorie malnutrition

== ENCOUNTER 2018-07-28 06:25 | Day surgery (SDC) | payer MEDICARE ==
[~2018-07-28] VITALS: Ht 180.3 cm; Wt 74.8 kg
--- NOTE | ~2018-07-28 | OP ---
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 OPERATION PERFORMED: Implantation of RD graft, AV graft between the brachial artery at the antecubital level and the axillary vein with a rainbow configuration. SURGEON: Antonio Dean MD ANESTHESIA: General with LMA per WIND ENERGY TECHNICIAN. PREOPERATIVE NOTE: Mr. Cuevas is a chronically-ill 87-year-old male with end-stage renal disease, who is now on hemodialysis. He is brought to the hospital as an outpatient with plans to implant an AV graft in his right upper extremity. DESCRIPTION OF PROCEDURE: Under anesthesia in supine position, the patient was prepped and draped in sterile manner. He was examined with ultrasound and I found there were really very small veins available only in the forearm and upper arm and that the axillary vein fairly deep in the axilla was acceptable. I made a transverse incision and exposed that vein and controlled it and tributaries with vessel loops. Hemostasis was obtained with electrocautery. I then made an incision over the brachial artery at and just above and medial to the antecubital space. The artery was quite large. It was controlled with doubly-looped Silastic tapes. I chose an RD graft prosthesis and bevelled an end, I made a corresponding venotomy and flushed the vein with heparinized saline and then performed an sdh-xi-zrtvj to side of vein anastomosis with running 6-0 Prolene and flushed the graft and the vein then with heparinized saline and found the suture line to be satisfactory and watertight. I then placed the graft in a superficial subcutaneous tunnel in a rainbow shape and brought it back down to the brachial artery. The artery was occluded, opened, flushed with heparinized saline and end of graft to side of artery anastomosis performed with running 6-0 Prolene and when that was complete and the various occluding loops and clamps were released excellent flow immediately was established within the new AV graft. The suture lines were hemostatic. The wounds were irrigated with Ancef/gentamicin solution and infiltrated with 0.25% Marcaine without epinephrine. Wound closure was completed with interrupted inverted 3-0 Vicryl and running intracuticular 4-0 Monocryl and Dermabond glue. The 2 incisions were dressed with Maxorb Ag, Tegaderm, and Cavilon skin prep and the patient awakened, was taken to the recovery room. PLAN: The patient will go home today and come back to see me in my office next week. He will be given a prescription for 10 tablets of Annada 5/325. He can take 1 every 4-6 hours as needed p.r.n. for pain. I will request a home health consultation. I would like them to seen 3 times a week and use their nursing judgment as to when and if the original operative wound dressing needs to be changed. If so, the wound should be cleaned with Hibiclens and dressed with clean, dry gauze and Tegaderm. The patient will continue his home medications OPERATIVE REPORT [id number] JOS CUEVAS and his diet, activities, etc. TRANSINT:[id number] Voice Confirmation ID: [id number] DOCUMENT ID: [id number] cc: [facility], [phone] ANTONIO DEAN MD CC: [facility] and RODOLFO COPELAND MD [id number] DICTATION DATE: 07/28/18 1104 COAL PASSER: 07/28/18 1220 PRE [facility] [address] [place] [address]
[2018-07-28 07:26] VITALS: BP 110/63; Ht 180.3 cm; Wt 74.8 kg
[2018-07-28 07:53] LABS: BASOPHILS 0.2 % (0-2); EOSINOPHILS 0.7 % (0-7); HEMATOCRIT 27.5 % (42.0-54.0); HEMOGLOBIN 8.3 g/dL (13.5-17.5); IMMATURE GRANULOCYTES 1.3 % (0-5); LYMPHOCYTES 9.4 % (15-50); MCH 26.3 pg (26.0-34.0); MCHC 30.2 g/dL (31.0-37.0); MCV 87.3 fL (80.0-100.0); MEAN PLATELET VOLUME 10.2 fL (7.4-10.4); MONOCYTES 9.1 % (2-11); NEUTROPHILS 79.3 % (40-80); PLATELET COUNT 302 10x3/uL (130-400); RBC 3.15 10x6/uL (4.20-6.10); RDW 16.9 % (11.5-14.5); WBC 9.2 10x3/uL (4.8-10.8)
[2018-07-28 07:55] LABS: INR 1.38 (0.85-1.17); PROTIME 16.4 SECONDS (11.6-15.0)
[2018-07-28 08:01] LABS: CALCIUM 7.6 mg/dL (8.5-10.1); CARBON DIOXIDE 28.9 mmol/L (21.0-32.0); CREATININE - SERUM 2.1 mg/dL (0.6-1.3); POTASSIUM - SERUM 4.9 mmol/L (3.5-5.1)
[2018-07-28] MEDS ORDERED: HYDROCODON-ACE1 EAC7 PO (10:48)
--- NOTE | 2018-07-28 12:47 | NUR ---
5360 DC INSTS REVIEWED RX GIVEN VOICED UNDERSTANDING, RELEASED IN WC WITH ESCORT.
== END 2018-07-28 17:00 | disposition home or self-care (01) ==
LOC: D.OPS 06:25
PROVIDERS: Surgery; ATTEND Internal Medicine
DX: N18.6 End stage renal disease (principal); Z99.2 Dependence on renal dialysis; E43 Unspecified severe protein-calorie malnutrition; Z01.812 Encounter for preprocedural laboratory examination

== ENCOUNTER → 2018-08-10 14:02 | Day surgery (SDC) | payer MEDICARE ==
[~2018-08-10] VITALS: Ht 180.3 cm; Wt 66.8 kg
[~2018-08-10 14:02] MED LIST changes: +HYDROCODON-ACE1 EAC7 PO
[2018-08-10 14:38] VITALS: BP 131/61; Ht 180.3 cm; Wt 66.8 kg
--- NOTE | 2018-08-10 15:25 | NUR ---
1520 TISSUES AND URINAL PROVIDED.
--- NOTE | 2018-08-10 16:05 | NUR ---
1540 BLOOD CHECKED AT BEDSIDE BY THIS NURSE AND KURTIS PHELPS RN, INITIATED AT 50/CC/HR REQUESTS AND SERVED COFFEE. URINAL EMPTIED OF 100CC YELLOW URINE. 1555 DENIES PROBLEMS WITH TRANSFUSION, RATE INCREASED TO 150/CC/HR
--- NOTE | 2018-08-10 17:01 | NUR ---
1500 ROOM CHECK, IV SITE PATENT, DENIES PROBLEMS WITH TRANSFUSION.
--- NOTE | 2018-08-10 18:28 | NUR ---
182 LINE IS FLUSHED, IV DC'D WITH CATH INTACT, BANDAID APPLIED. WAITING ON HIS RIDE.
== END | disposition home or self-care (01) ==
LOC: D.OPS 13:48
PROVIDERS: ATTEND Internal Medicine Nephrology
DX: D64.9 Anemia, unspecified (principal); R06.02 Shortness of breath

== ENCOUNTER 2018-08-17 20:31 | Inpatient (IN) | payer MEDICARE, OTHER ==
[~2018-08-17] VITALS: Ht 180.3 cm; Wt 63.5 kg
[2018-08-17 20:45] VITALS: BP 115/50
--- NOTE | 2018-08-17 21:07 | NUR ---
AFTER BREATHING TX PT HAS A COUGH THAT IN NONPRODUCTIVE AT THIS TIME. PT STABLE, CALLLIGHT WITHIN REACH, WILL CONTINUE TO MONITOR.
[2018-08-17 21:25] LABS: HEMATOCRIT 31.8 % (42.0-54.0); HEMOGLOBIN 9.5 g/dL (13.5-17.5); IMMATURE GRANULOCYTES 0.7 % (0-5); MCHC 29.9 g/dL (31.0-37.0); MCV 86.9 fL (80.0-100.0); MEAN PLATELET VOLUME 9.7 fL (7.4-10.4); PLATELET COUNT 279 10x3/uL (130-400); RBC 3.66 10x6/uL (4.20-6.10); RDW 18.4 % (11.5-14.5); WBC 18.8 10x3/uL (4.8-10.8)
[2018-08-17 21:45] VITALS: BP 115/49
[2018-08-17 21:50] LABS: ALBUMIN 1.6 g/dL (3.4-5.0); ALKALINE PHOSPHATASE 125 U/L (46-116); ALT (SGPT) 27 U/L (10-68); APTT 40.4 SECONDS (22.8-39.4); BILIRUBIN - TOTAL 0.54 mg/dL (0.2-1.3); CALC OSMOLALITY 280 mosm/kg (275-300); CALCIUM 7.7 mg/dL (8.5-10.1); CARBON DIOXIDE 27.8 mmol/L (21.0-32.0); CHLORIDE - SERUM 100 mmol/L (98-107); CREATININE - SERUM 2.2 mg/dL (0.6-1.3); GLUCOSE 198 mg/dL (74-106); INR 1.37 (0.85-1.17); POTASSIUM - SERUM 4.9 mmol/L (3.5-5.1); PROTEIN - SERUM 7.2 g/dL (6.4-8.2); PROTIME 16.3 SECONDS (11.6-15.0); SODIUM 136 mmol/L (136-145); UREA NITROGEN 21 mg/dL (7-18); eGFR NON AFRICAN AMERICAN 30 mL/min (90-120)
[2018-08-17 22:02] LABS: CKMB 0.5 U/L (0.0-3.6); CREATINE KINASE 14 UL (21-232); PRO BNP 17229 pg/mL (0-450)
[2018-08-17 22:04] LABS: ANISOCYTOSIS 1+; EOSINOPHILS 1 % (0-7); LYMPHOCYTES 2 % (15-50); NEUTROPHILS 94 % (40-80); TROPONIN-I < 0.017 ng/mL (0.000-0.060)
[2018-08-17 22:05] LABS: BASOPHILS 0 % (0-2); MONOCYTES 0 % (2-11); PLATELET ESTIMATE NORMAL; POIKILOCYTOSIS 1+
[2018-08-17 22:45] VITALS: BP 98/54
--- NOTE | 2018-08-17 22:55 | NUR ---
PT REPORT CALLED TO NURSE SALENA. PT GOING TO ROOM 2226.
[2018-08-17 23:54] VITALS: BP 99/54
[2018-08-18] VITALS (7 sets, daily range): BP systolic 99–153; BP diastolic 54–65; BMI 22.3
--- NOTE | 2018-08-18 00:49 | NUR ---
PT ARRIVED TO THE FLOOR. CALLED FOR A DIRECTOR OF PRODUCT MARKETING. THEY STATED THERE IS NO MONITORS AVAILABLE AT THIS TIME. WILL SEE IN THE MORNING.
--- NOTE | 2018-08-18 01:36 | NUR ---
CARMELITA CASTRO CONTACT INFORMATION [phone]
--- NOTE | 2018-08-18 05:06 | NUR ---
I have reviewed this patient and I concur with the Shift Assessment completed by the Licensed Practical Nurse today this shift.
[2018-08-18 07:25] LABS: ANION GAP 13.8 mmol/L (8-16); CALCIUM 7.7 mg/dL (8.5-10.1); CARBON DIOXIDE 25.1 mmol/L (21.0-32.0); CREATININE - SERUM 2.5 mg/dL (0.6-1.3); POTASSIUM - SERUM 4.9 mmol/L (3.5-5.1)
[2018-08-18 07:28] LABS: HEMATOCRIT 27.3 % (42.0-54.0); HEMOGLOBIN 8.1 g/dL (13.5-17.5); INR 1.4 (0.85-1.17); MCH 25.6 pg (26.0-34.0); MCHC 29.7 g/dL (31.0-37.0); MCV 86.4 fL (80.0-100.0); MEAN PLATELET VOLUME 10.1 fL (7.4-10.4); PLATELET COUNT 242 10x3/uL (130-400); PROTIME 16.6 SECONDS (11.6-15.0); RBC 3.16 10x6/uL (4.20-6.10); RDW 18.5 % (11.5-14.5); WBC 22.8 10x3/uL (4.8-10.8)
--- NOTE | 2018-08-18 08:00 | NUR ---
ASSESSMENT PER FLOW SHEET. PT IS WITHOUT DISTRESS. NPO FOR PROCEDURE TODAY. BED ALARM ON AND WORKING. MONITOR
[2018-08-18 08:48] LABS: LYMPHOCYTES 13 % (15-50); NEUTROPHILS 83 % (40-80); PLATELET ESTIMATE NORMAL; PLATELET MORPHOLOGY NORMAL PLT MORPH
--- NOTE | 2018-08-18 10:52 | NUR ---
RECEIVED PT BACK FROM SPECIALS, CHEST TUBE IN PLACE, DRAINING YELLOW FLUID, NO S/S OF DISTRESS, BED IN LOW POSITION, CL IN REACH, STARTED POST OP VITALS AND WILL CONTINUE TO MONITOR
--- NOTE | 2018-08-18 13:02 | NUR ---
PT PLACED ON HEART MONITOR SHOWING CAF RATE 90.
--- NOTE | 2018-08-18 18:20 | NUR ---
REMAINS WITHOUT DISTRESS. DENIES NEEDS.CONT PLAN OF CARE
--- NOTE | 2018-08-18 21:00 | NUR ---
PT SITTING UP IN BED, NO SIGNS OF DISTRESS. ALERT AND ORIENTED. DENIES PAIN. IV LEFT FA SL, FLUSHES EASILY. O2 2L/NC. SCDS IN PLACE. RIGHT ARM RESERVE. CHEST TUBE RIGHT SIDE DRAINING BLOODY FLUID. HR 96 SR PER TELE. DENIES NEEDS AT THIS TIME. CL IN REACH, WILL CONT TO MONITOR
--- NOTE | 2018-08-19 04:15 | NUR ---
PT STATES HE HAD SOME MENTHOLATUM IN A GREEN JAR IN HIS JACKET POCKET IN THE CLOSET. GAVE PT JACKET, HE COULD NOT FIND THE JAR. HELPED PT SEARCH THROUGH OTHER BELONGINGS, CLOSET AND DRAWER. NO MENTHOLATUM FOUND. PT STATES A NURSE MUST'VE TAKEN IT AWAY FROM HIM AND HE WANTS IT BACK. TOLD PT I WAS NOT AWARE OF ANYONE TAKING SOME MENTHOLATUM FROM HIS ROOM. PT STATES IF HE DOESN'T GET SOME TODAY THEN HE IS "GOING TO HAVE TO CHECK OUT AND GO HOME." TOLD PT THAT HE NEEDS TO STAY HERE FOR ANTIBIOTICS AND HIS CHEST TUBE BUT PT CONTINUING TO GET MORE AGITATED. TOLD PT THIS NURSE WOULD SEE WHAT SHE CAN DO IN THE MORNING ABOUT GETTING HIM SOMETHING FOR HIS DRY NOSE. PT VERBALIZED UNDERSTANDING. WILL CONT TO MONITOR
[2018-08-19 04:39] VITALS: BP 132/68
[2018-08-19 07:48] LABS: ALBUMIN 1.3 g/dL (3.4-5.0); ANION GAP 10.1 mmol/L (8-16); BILIRUBIN - TOTAL 0.29 mg/dL (0.2-1.3); CALCIUM 7.7 mg/dL (8.5-10.1); CARBON DIOXIDE 27.7 mmol/L (21.0-32.0); CREATININE - SERUM 3.1 mg/dL (0.6-1.3); POTASSIUM - SERUM 4.8 mmol/L (3.5-5.1); PROTEIN - SERUM 6.1 g/dL (6.4-8.2)
[2018-08-19 07:51] LABS: INR 1.4 (0.85-1.17); PROTIME 16.6 SECONDS (11.6-15.0)
[2018-08-19 07:57] LABS: BASOPHILS 0.3 % (0-2); EOSINOPHILS 1.2 % (0-7); HEMATOCRIT 27.9 % (42.0-54.0); HEMOGLOBIN 8.1 g/dL (13.5-17.5); IMMATURE GRANULOCYTES 0.8 % (0-5); LYMPHOCYTES 8.7 % (15-50); MCH 25.5 pg (26.0-34.0); MCV 87.7 fL (80.0-100.0); MEAN PLATELET VOLUME 10.2 fL (7.4-10.4); MONOCYTES 5.4 % (2-11); NEUTROPHILS 83.6 % (40-80); PLATELET COUNT 242 10x3/uL (130-400); RBC 3.18 10x6/uL (4.20-6.10); RDW 18.5 % (11.5-14.5)
--- NOTE | 2018-08-19 08:38 | NUR ---
PT RESTING IN BED. JOYCE WITH IR IN PLACED CHEST TUBE ON HOLD. WILL RESTART TO SUCTION AT 1030. NO S/S OF ACUTE DISTRESS. CL IN PLACE.
[2018-08-19 09:35] VITALS: BP 114/75
--- NOTE | 2018-08-19 13:21 | NUR ---
PAGED JESSICA VASCULAR ACCESS X7. LEFT VOICE MAIL. SPOKE WITH ZAHRAA GUSMAN WHO STATED JESSICA WAS OUT TODAY.
[2018-08-19 13:51] VITALS: BP 103/62
--- NOTE | 2018-08-19 15:20 | MORECARE ---
CASE MANAGEMENT DISCHARGE SUMMARY PATIENT: JOS ESPINAL UNIT: [id number] ADM DATE: 08/17/18 AGE: 87 : 32 SEX: M ROOM/BED: D.2226 AUTHOR: ABELINO,DOC PHYSICIAN: REFERRING PHYSICIAN: LUCIANA ANTON DO DATE OF SERVICE: 08/19/18 Discharge Plan Patient Name: JOS ESPINAL Facility: [facility]:[place] : 1930 Planned Disposition: Home with Home Health Anticipated Discharge Date: Discharge Date: Expected LOS: Initial Reviewer: [id number] Initial Review Date: 08/19/2018 Generated: 08/19/18 4:20 pm Comments DCP- Discharge Planning Updated by [id number]: Marylou Radford on 08/19/18 2:[address] Patient Name: JOS ESPINAL Admission Status: ER Accout number: [id number] Admission Date: 08-17-2018 : 1930 Admission Diagnosis: Attending: LUCIANA ANTON Current LOS: 2 Anticipated DC Date: Planned Disposition: Home with Home Health Primary Insurance: MEDICARE A & B Discharge Planning Comments: CM met with patient to complete initial dc planning assessment. CM educated patient on the CM role and verbal consent given by patient to complete assessment. Patient lives at home with his disabled step son. At discharge patient plans to return and feels this is a safe discharge. CM discussed availability of home health, rehab services, and medical equipment. Patient states he has home health with [facility] and would like to resume this at discharge, VIVI form signed for [facility]. States CM will continue to follow and will assist as needed with dc plans/needs. Telecommunications Linesworker: Marylou Radford DCPIA - Discharge Planning Initial Assessment Updated by [email or web address]: Marylou Radford on 08/19/18 3:17 pm * Is the patient Alert and Oriented? Yes * PCP Dr[facility] Bella in [facility] * Preadmission Environment Home with Family * ADLs Independent * Equipment None * List name and contact numbers for known caregivers / representatives who currently or will assist patient after discharge: Scott Crawford [facility] - [phone] Светланаsebastien Pierre [facility] - [phone] [facility]) * Verbal permission to speak to the caregivers and representatives has been obtained from the patient. Yes * Community resources currently utilized Home Health * Please name any agencies selected above. [facility] * Additional services required to return to the preadmission environment? No * Can the patient safely return to the preadmission environment? Yes * Has this patient been hospitalized within the prior 30 days at any hospital? No Coverage Notice Reviewer: [id number] Cherie Radford Notice Issued Date-Time: 08/19/2018 15:17 Notice Type: Patient Choice Letter Notice Delivered To: Patient Relationship to Patient: Self After School Coordinator Name: Delivery Method: HAND - Hand Delivered Lluvia Days: Prior Verbal Notification: Recipient Understood Notice: Yes Recipient Signature: Yes Med Rec Note Co-signed by Attending: Coverage Notice Comment: VIVI for [facility] Patient Name: JOS ESPINAL Page [phone] at 1520 All edits/amendments must be made on the electronic document DICTATION DATE: 08/19/181518 COMMUNITY LIVING INSTRUCTOR: JENNY 08/19/18 151 RPT#: [id number] DC DATE: STATUS: ADM IN [facility] [address] [place] [address] END OF REPORT
[2018-08-19 18:07] VITALS: BP 107/64
--- NOTE | 2018-08-19 18:14 | NUR ---
PT SITTING UP IN BED EATING DINNER. NO S/S OF ACUTE DISTRESS. CL IN PLACE.
[2018-08-19 20:00] VITALS: BP 120/70
--- NOTE | 2018-08-19 21:00 | NUR ---
AWAKE,ALERT,NO COMPLAITNS VOICED. RIGHT CHEST IN PLACE. NO DISTRESS NOTED. IV O2 @ 2L PER NC ON. IV INFSUING TO LFA WITHOUT REDNESS OR EDEMA NOTED. CL IN REACH
[2018-08-20 00:30] VITALS: BP 119/67
--- NOTE | 2018-08-20 03:44 | NUR ---
I have reviewed this patient and I concur with the Shift Assessment completed by the Licensed Practical Nurse today this shift.
[2018-08-20 05:00] VITALS: BP 103/67
[2018-08-20 06:54] LABS: BASOPHILS 0.2 % (0-2); EOSINOPHILS 0.9 % (0-7); HEMATOCRIT 29.5 % (42.0-54.0); HEMOGLOBIN 8.7 g/dL (13.5-17.5); LYMPHOCYTES 5.7 % (15-50); MCH 25.4 pg (26.0-34.0); MCHC 29.5 g/dL (31.0-37.0); MCV 86.3 fL (80.0-100.0); MONOCYTES 4.8 % (2-11); NEUTROPHILS 87.4 % (40-80); PLATELET COUNT 269 10x3/uL (130-400); RBC 3.42 10x6/uL (4.20-6.10); RDW 18.4 % (11.5-14.5); WBC 11.9 10x3/uL (4.8-10.8)
[2018-08-20 07:00] LABS: INR 1.29 (0.85-1.17); PROTIME 15.5 SECONDS (11.6-15.0)
[2018-08-20 07:08] LABS: ALBUMIN 1.4 g/dL (3.4-5.0); ANION GAP 11.8 mmol/L (8-16); BILIRUBIN - TOTAL 0.42 mg/dL (0.2-1.3); CALCIUM 7.8 mg/dL (8.5-10.1); CARBON DIOXIDE 25.9 mmol/L (21.0-32.0); CREATININE - SERUM 3.5 mg/dL (0.6-1.3); POTASSIUM - SERUM 4.7 mmol/L (3.5-5.1); PROTEIN - SERUM 6.3 g/dL (6.4-8.2)
--- NOTE | 2018-08-20 08:05 | NUR ---
CHEST TUBE CHAMBER CHANGED AND DRAINING PROPERLY. WILL CONTINUE TO MONITOR.
--- NOTE | 2018-08-20 08:35 | NUR ---
ALERT AND ORIENTED X3. RIGHT LOWER LOBE WITH DIMINISHED LUNG SOUNDS. RIGHT CHEST TUBE IN PLACE. HEART SOUNDS HEARD S1 AND S2 IN ALL HERNANDEZ. TELEMETRY IN PLACE. BOWEL SOUNDS ACTIVE X 4. SKIN INTACT WITHOUT REDNESS. IV TO LFA PATENT WITHOUT REDNESS. DENIES PAIN. DENIES FURTHER NEEDS. MEDICATION GIVEN WITHOUT DIFFICULTY. FALL PRECAUTIONS IN PLACE. BED ALARM ON AND FUNCTIONING. BED LOW. PERSONAL BELONGINGS IN REACH. WILL CONTINUE TO MONITOR.
[2018-08-20 09:19] VITALS: BP 117/65
--- NOTE | 2018-08-20 10:00 | NUR ---
CALLED DIALYSIS TO CHECK REASON PATIENT DID NOT RECEIVE PLANNED DIALYSIS YESTERDAY. STATED DID NOT KNOW PATIENT WAS HERE. STATED WILL DO DIALYSIS TODAY, TOMORROW, IN ORDER TO RETURN TO NORMAL SCHEDULE. PATIENT NOTIFIED DIALYSIS WILL BE PERFORMED AT BEDSIDE TODAY.
--- NOTE | 2018-08-20 11:48 | NUR ---
RESTING IN BED. DENIES PAIN. REQUESTED TO LEAVE OFF SCDS. STATES WILL PUT THEM BACK ON THIS EVENING. DENIES FURTHER NEEDS. WILL CONTINUE TO MONITOR.
[2018-08-20 12:27] VITALS: BP 95/59
--- NOTE | 2018-08-20 12:52 | NUR ---
NOTIFIED PATIENT THAT DIALYSIS WILL BE DONE TOMORROW PER SCHEDULE. PATIENT AGREEABLE. WILL CONTINUE TO MONITOR.
--- NOTE | 2018-08-20 13:30 | NUR ---
IV TO LFA LEAKING. PATIENT ALLOWED STUDENT NURSE AND STUDENT NURSE PROFESSOR TO BOTH ATTEMPT TO INSERT NEW IV. PATIENT SITTING IN BED EATING LUNCH. WILL START NEW IV AFTER PATIENT FINISHED EATING.
--- NOTE | 2018-08-20 13:48 | NUR ---
NUTRITION F/U PT TOLERATING RENAL DIET WITH GOOD INTAKE ALL MEALS. WILL CONTINUE TO PROVIDE DIET, MONITOR PO INTAKE. RD FOLLOWING
--- NOTE | 2018-08-20 14:54 | NUR ---
22 gauge IV started in left arm x 1 stick. + blood return flushed without any difficulty secured with tegaderm. No redness or edema noted. the leaking 20 gauge iv in the left arm was discontinued with catheter intact
--- NOTE | 2018-08-20 14:58 | NUR ---
IV RESITED TO LFA.
--- NOTE | 2018-08-20 15:12 | NUR ---
MEDICATIONS GIVEN WITHOUT DIFFICULTY. EDUCATION PROVIDED ON LOVENOX INJECTION. PATIENT VERBALIZED UNDERSTANDING. WILL CONTINUE TO MONITOR
[2018-08-20 17:05] LABS: PROTEIN - BODY FLUID 2.3 G/DL
--- NOTE | 2018-08-20 17:18 | NUR ---
REFUSED NASAL SPRAY. DENIES PAIN. DENIES NEEDS. WILL CONTINUE TO MONITOR
[2018-08-20 17:38] LABS: NEUT - BF 96 %
--- NOTE | 2018-08-20 17:56 | NUR ---
DINNER AT BEDSIDE. STATES DOESN'T LIKE FOOD. OFFERED TO ORDER SOMETHING DIFFERENT OR SANDWICH. STATES DOESN'T WANT ANYTHING ELSE RIGHT NOW.
[2018-08-20 18:11] VITALS: BP 116/65
[2018-08-20 20:23] VITALS: BP 118/68
[2018-08-21 01:34] VITALS: BP 115/46
[2018-08-21 04:04] LABS: BASOPHILS 0.2 % (0-2); EOSINOPHILS 1.5 % (0-7); HEMATOCRIT 28.5 % (42.0-54.0); HEMOGLOBIN 8.4 g/dL (13.5-17.5); IMMATURE GRANULOCYTES 1.2 % (0-5); LYMPHOCYTES 4.8 % (15-50); MCH 25.1 pg (26.0-34.0); MCHC 29.5 g/dL (31.0-37.0); MCV 85.1 fL (80.0-100.0); MEAN PLATELET VOLUME 9.7 fL (7.4-10.4); MONOCYTES 6.2 % (2-11); NEUTROPHILS 86.1 % (40-80); PLATELET COUNT 299 10x3/uL (130-400); RBC 3.35 10x6/uL (4.20-6.10); RDW 18.3 % (11.5-14.5)
[2018-08-21 04:05] LABS: WBC 8.1 10x3/uL (4.8-10.8)
[2018-08-21 04:19] LABS: ALBUMIN 1.3 g/dL (3.4-5.0); ANION GAP 9.7 mmol/L (8-16); BILIRUBIN - TOTAL 0.5 mg/dL (0.2-1.3); CALCIUM 7.4 mg/dL (8.5-10.1); CARBON DIOXIDE 25.9 mmol/L (21.0-32.0); CREATININE - SERUM 3.4 mg/dL (0.6-1.3); POTASSIUM - SERUM 4.6 mmol/L (3.5-5.1); PROTEIN - SERUM 6.1 g/dL (6.4-8.2)
[2018-08-21 04:21] LABS: INR 1.21 (0.85-1.17); PROTIME 14.8 SECONDS (11.6-15.0)
[2018-08-21 04:58] VITALS: BP 113/60
--- NOTE | 2018-08-21 07:51 | NUR ---
LYING IN BED,WITHOUT DISTRESS. AWAKENS INT.CALL LIGHT IN REACH. BED ALARM ON AND WORKING
--- NOTE | 2018-08-21 08:00 | NUR ---
ASSESSMENT PER FLOW SHEET. PT IS WITHOUT DISTRESS.CALL LIGHT IN REACH.
[2018-08-21 08:52] VITALS: BP 131/58
[2018-08-21 13:21] VITALS: BP 124/60
[2018-08-21 16:40] VITALS: BP 110/63
--- NOTE | 2018-08-21 17:36 | NUR ---
FAMILY AT BEDSIDE. PT IS WITHOUT NEEDS.CALL LIGHT IN REACH
[2018-08-21 20:00] VITALS: BP 98/54
[2018-08-22 00:54] VITALS: BP 106/63
--- NOTE | 2018-08-22 01:00 | NUR ---
LEFT FOREARM IV LEAKING. REMOVED CATHETER INTACT. IV OUT FOR 4 HOURS AFTER SEVERAL UNSUCCESSFUL ATTEMPTS BY DIFFERENT NURSES. 22 GAUGE IV SITED TO LEFT HAND BY ZAHRAA OBRIEN. PT TOLERATED WELL. IV ANTIBIOTICS RESUMED. NO OTHER NEEDS. WILL CONTINUE TO MONITOR.
[2018-08-22 05:26] VITALS: BP 120/63
[2018-08-22 06:37] LABS: BASOPHILS 0.3 % (0-2); EOSINOPHILS 1.9 % (0-7); HEMATOCRIT 29.1 % (42.0-54.0); HEMOGLOBIN 8.6 g/dL (13.5-17.5); LYMPHOCYTES 8.5 % (15-50); MCHC 29.6 g/dL (31.0-37.0); MCV 84.6 fL (80.0-100.0); MONOCYTES 8.9 % (2-11); NEUTROPHILS 77.4 % (40-80); PLATELET COUNT 322 10x3/uL (130-400); RBC 3.44 10x6/uL (4.20-6.10); RDW 18.1 % (11.5-14.5); WBC 6.7 10x3/uL (4.8-10.8)
[2018-08-22 06:45] LABS: INR 1.35 (0.85-1.17); PROTIME 16.1 SECONDS (11.6-15.0)
[2018-08-22 07:15] LABS: ALBUMIN 1.3 g/dL (3.4-5.0); ANION GAP 11.2 mmol/L (8-16); BILIRUBIN - TOTAL 0.39 mg/dL (0.2-1.3); CALCIUM 7.4 mg/dL (8.5-10.1); POTASSIUM - SERUM 4.2 mmol/L (3.5-5.1); PROTEIN - SERUM 5.8 g/dL (6.4-8.2)
[2018-08-22 09:04] VITALS: BP 129/68
[2018-08-22 12:15] VITALS: BP 115/63
--- NOTE | 2018-08-22 13:00 | NUR ---
PT OUT OF ROOM FOR DIALYSIS AT THIS TIME
--- NOTE | 2018-08-22 14:00 | NUR ---
PT BACK IN ROOM FROM DIALYSIS
--- NOTE | 2018-08-22 16:05 | NUR ---
I have reviewed this patient and I concur with the Shift Assessment completed by the Licensed Practical Nurse today this shift.
[2018-08-22 17:51] VITALS: BP 110/71
[2018-08-22 19:07] LABS: ACID FAST SMEAR Negative (()); AFB SPECIMEN PROCESSING Concentration (())
[2018-08-22 20:00] VITALS: BP 96/51
--- NOTE | 2018-08-22 22:20 | NUR ---
PT ALERT & ORIENTED. RIGHT POSTERIOR CHEST TUBE DRAINING SER[place] FLUID. PT DENIES PAIN. ASSISTED TO REPOSITION. ASSESSMENT COMPLETE PER FLOW-SHEET. NO OTHER NEEDS. WILL CONTINUE TO MONITOR.
[2018-08-23] VITALS: BP 99/63
[2018-08-23 03:00] VITALS: BP 100/71
[2018-08-23 05:08] LABS: BASOPHILS 0.5 % (0-2); EOSINOPHILS 0.9 % (0-7); HEMATOCRIT 29.6 % (42.0-54.0); HEMOGLOBIN 8.9 g/dL (13.5-17.5); IMMATURE GRANULOCYTES 2.6 % (0-5); LYMPHOCYTES 10.7 % (15-50); MCH 25.1 pg (26.0-34.0); MCHC 30.1 g/dL (31.0-37.0); MCV 83.6 fL (80.0-100.0); MEAN PLATELET VOLUME 9.4 fL (7.4-10.4); MONOCYTES 8.2 % (2-11); NEUTROPHILS 77.1 % (40-80); PLATELET COUNT 284 10x3/uL (130-400); RBC 3.54 10x6/uL (4.20-6.10)
[2018-08-23 05:23] LABS: ALBUMIN 1.4 g/dL (3.4-5.0); ANION GAP 9.5 mmol/L (8-16); BILIRUBIN - TOTAL 0.45 mg/dL (0.2-1.3); CALCIUM 7.5 mg/dL (8.5-10.1); CARBON DIOXIDE 29.4 mmol/L (21.0-32.0); CREATININE - SERUM 2.3 mg/dL (0.6-1.3); INR 1.27 (0.85-1.17); POTASSIUM - SERUM 3.9 mmol/L (3.5-5.1); PROTEIN - SERUM 6.1 g/dL (6.4-8.2); PROTIME 15.3 SECONDS (11.6-15.0)
--- NOTE | 2018-08-23 08:00 | NUR ---
PT AAOX4 RESP EVEN AND NONLABORED, NO SIGNS OF DISTRESS NOTED, CL IN REACH
[2018-08-23 09:54] VITALS: BP 115/64
[2018-08-23 13:43] VITALS: BP 104/64
[2018-08-23 17:49] VITALS: BP 102/59
--- NOTE | 2018-08-23 18:45 | NUR ---
I have reviewed this patient and I concur with the Shift Assessment completed by the Licensed Practical Nurse today this shift.
[2018-08-23 20:23] VITALS: BP 92/62
--- NOTE | 2018-08-23 21:44 | NUR ---
PT HAD LARGE SOFT STOOL. PT WEAK AND UNSTEADY WHEN STANDING. GAVE SCHEDULED MEDS. COMPLETE ASSESSMENT PER FLOW-SHEET. BED ALARM ON. WILL CONTINUE TO MONITOR.
[2018-08-24 00:47] VITALS: BP 105/80
[2018-08-24 05:27] VITALS: BP 110/60
[2018-08-24 06:44] LABS: BASOPHILS 0.4 % (0-2); EOSINOPHILS 1.4 % (0-7); HEMATOCRIT 28.9 % (42.0-54.0); HEMOGLOBIN 8.7 g/dL (13.5-17.5); IMMATURE GRANULOCYTES 2.9 % (0-5); LYMPHOCYTES 8.2 % (15-50); MCH 25.2 pg (26.0-34.0); MCHC 30.1 g/dL (31.0-37.0); MCV 83.8 fL (80.0-100.0); MEAN PLATELET VOLUME 9.5 fL (7.4-10.4); MONOCYTES 7.6 % (2-11); NEUTROPHILS 79.5 % (40-80); PLATELET COUNT 313 10x3/uL (130-400); RBC 3.45 10x6/uL (4.20-6.10); RDW 18.4 % (11.5-14.5); WBC 9.2 10x3/uL (4.8-10.8)
[2018-08-24 07:10] LABS: ALBUMIN 1.3 g/dL (3.4-5.0); ANION GAP 9.8 mmol/L (8-16); BILIRUBIN - TOTAL 0.35 mg/dL (0.2-1.3); CALCIUM 7.3 mg/dL (8.5-10.1); CARBON DIOXIDE 29.7 mmol/L (21.0-32.0); CREATININE - SERUM 2.4 mg/dL (0.6-1.3); MAGNESIUM - SERUM 1.8 mg/dL (1.8-2.4); POTASSIUM - SERUM 3.5 mmol/L (3.5-5.1); PROTEIN - SERUM 5.9 g/dL (6.4-8.2)
--- NOTE | 2018-08-24 10:02 | NUR ---
MORNING ASSESSMENT COMPLETE. SEE ASSESSMENT FLOWSHEET FOR FURHTER DETAILS. PT LYING IN BED AAO X4 TO PERSON, PLACE, TIME, AND SITUATION. DENIES NEEDS AT THIS TIME. CLIN REACH. SIDE RAILS UP X3 FOR PT SAEFTY. BED IN LOWEST POSITION.
[2018-08-24 10:07] VITALS: BP 163/49
[2018-08-24 12:12] LABS: FUNGUS MYCOLOGY CULTURE Preliminary report (())
[2018-08-24 14:11] LABS: FUNGUS STAIN Final report (())
[2018-08-24 14:37] VITALS: BP 117/61
[2018-08-24 18:12] VITALS: BP 153/56
--- NOTE | 2018-08-24 21:35 | NUR ---
TRANSFERED FROM MED SURG TO ROOM 2105. ALERT AND ORIENTED. CONT OF B/B. CHEST TUBE TO RIGHT PAGE E OF BACK. REMAINS ON LOW CONTINUIOUS SUCTION. CLESR LIGHT YELLOW DRAINAGE IN TUBING. TELEMETRY IN PLACE. HEMO SPLIT TO RIGHT CHEST. AVF TO RIGHT ARM WITH NO BRUIT OR TRILL. RECIEVES DIALYSIS MON., WED., AND FRI. REPORTED HAD DIALYSIS TODAY. IV TO LEFT HAND SL.. NO REDNESS OR DRAINAGE TO AREA. VERY [place]. DENIES ANY NEEDS.
[2018-08-24 23:55] VITALS: BP 121/67
[2018-08-25 03:39] VITALS: BP 136/61
--- NOTE | 2018-08-25 07:00 | NUR ---
BEDSIDE SHIFT REPORT GIVEN. ASSUMED CARE FOR THIS PT. AM ROUNDS COMPLETED. INTRODUCED MYSELF TO PT PRIMARY RN FOR TODAYS SHIFT. PT IS A&O SITTING UP IN BED RESTING QUIETLY. PTS CHEST TUBE IS COMPLETELY FULL AND HAS NO ROOM FOR ANY FURTHER FLUID. NIGHTSHIFT STATES SHE JUST REALIZED IT WAS FULL ABOUT AN HOUR AGO AND WASNT SURE WHAT TO DO. TEACHING PROVIDED TO NURSE AND I GOT A NEW CHEST TUBE. SWITCHED OUT CHEST TUBE WITH NEW SUCTION SEAL AND CONNECTED ORDERED AND MADE SURE TO DISCUSS WITH MY STRINGED INSTRUMENT REPAIRER AND NIGHTSHIFT CHARGE NURSE THE IMPORTANCE OF ASKING FOR HELP AND MAKING SURE IF YOU ARENT SURE TO CALL SOMEONE BECAUSE HOW IMPORTANT IT IS TO CHART ACCURATE DRAINAGE AMOUNT ALONG WITH KEEPING CANISTER NOT FULL SO ITS ABLE TO DRAIN. INSERTION SITE HAS DRSG CDI NO S/S REDDNESS OR DRAINAGE AT INSERTION NOTED. RR NONLABORED ON RA. WILL FINISH MORNING ROUNDS AND CPOC. PT DENIES ANY CURRENT PAIN OR NEEDS AT THIS TIME. CL IN REACH, BED IN LOWEST, SIDE RAILS X2 AND BUILT IN BED ALARM ON.
[2018-08-25 07:03] LABS: BASOPHILS 0.3 % (0-2); EOSINOPHILS 1.5 % (0-7); HEMATOCRIT 28.2 % (42.0-54.0); HEMOGLOBIN 8.4 g/dL (13.5-17.5); IMMATURE GRANULOCYTES 2.3 % (0-5); LYMPHOCYTES 10.2 % (15-50); MCH 25.1 pg (26.0-34.0); MCHC 29.8 g/dL (31.0-37.0); MCV 84.4 fL (80.0-100.0); MEAN PLATELET VOLUME 9.8 fL (7.4-10.4); MONOCYTES 5.2 % (2-11); NEUTROPHILS 80.5 % (40-80); RBC 3.34 10x6/uL (4.20-6.10); RDW 18.4 % (11.5-14.5); WBC 8.8 10x3/uL (4.8-10.8)
[2018-08-25 07:11] LABS: PLATELET COUNT 245 10x3/uL (130-400)
[2018-08-25 08:53] LABS: ALBUMIN 1.3 g/dL (3.4-5.0); BILIRUBIN - TOTAL 0.37 mg/dL (0.2-1.3); CALCIUM 7.3 mg/dL (8.5-10.1); CARBON DIOXIDE 31.4 mmol/L (21.0-32.0); CREATININE - SERUM 1.9 mg/dL (0.6-1.3); MAGNESIUM - SERUM 1.8 mg/dL (1.8-2.4); POTASSIUM - SERUM 3.4 mmol/L (3.5-5.1)
[2018-08-25 08:54] VITALS: BP 135/64
--- NOTE | 2018-08-25 09:34 | NUR ---
Pt is at risk for skin breakdown due to age. Recommendations: -assist with turning/repositioning q 2 hours -bridge heels for protection -protect bony prominences -reassess skin every shift Wound care will monitor as needed.
--- NOTE | 2018-08-25 10:34 | NUR ---
PT SITTING UP IN BED RESTING QUIETLY. RR NONLABORED ON RA. CHEST TUBE STILL DRAINING YELLOW FLUID. PT DENIES ANY CURRENT PAIN OR NEEDS. EMPTIED BEDSIDE URINAL OF 150CC CLEAR YELLOW URINE. WILL CTM.
[2018-08-25 11:33] VITALS: BP 122/51
--- NOTE | 2018-08-25 14:27 | NUR ---
REPOSITIONED UP ON EDGE OF BED. PT CAN ACTUALLY TURN HIMSELF VERY WELL ON HIS OWN. PT HAS NO CURRENT SKIN BREAKDOWN AND VERBALIZED UNDERSTANDING ON TURNING FREQUENTLY AND REPOSITIONING. NO CURRENT NEEDS. WILL CTM.
--- NOTE | 2018-08-25 15:30 | NUR ---
Nutrition follow-up: Diet: Renal with Nepro TID PO Intake poor now Wt: 147# Low grade temp; pt does not feel well and is weak Chest tube in place and draining Will continue to enourage increased po intake. Recommend liberalizing diet to regular as tolerated to encourage increased po intake . RDN following.
[2018-08-25 17:16] VITALS: BP 114/64
[2018-08-25 19:55] VITALS: BP 112/63
--- NOTE | 2018-08-25 21:45 | NUR ---
PATIENT LAYING IN BED. NO DISTRESS NOTED. NO COMPLAINTS AT THIS TIME.
[2018-08-25 23:55] VITALS: BP 117/64
--- NOTE | 2018-08-26 01:31 | NUR ---
PATIENT LAYING IN BED. EYES CLOSED, CHEST RISING AND FALLING. NO DISTRESS NOTED.
--- NOTE | 2018-08-26 02:55 | NUR ---
I have reviewed this patient and I concur with the Shift Assessment completed by the Licensed Practical Nurse today this shift.
[2018-08-26 03:30] VITALS: BP 115/75
[2018-08-26 06:43] LABS: ALBUMIN 1.4 g/dL (3.4-5.0); ANION GAP 7.9 mmol/L (8-16); BILIRUBIN - TOTAL 0.35 mg/dL (0.2-1.3); CALCIUM 7.7 mg/dL (8.5-10.1); CARBON DIOXIDE 30.9 mmol/L (21.0-32.0); CREATININE - SERUM 2.3 mg/dL (0.6-1.3); MAGNESIUM - SERUM 1.8 mg/dL (1.8-2.4); POTASSIUM - SERUM 3.8 mmol/L (3.5-5.1); PROTEIN - SERUM 5.9 g/dL (6.4-8.2)
[2018-08-26 07:25] LABS: BASOPHILS 0.6 % (0-2); EOSINOPHILS 1.2 % (0-7); HEMATOCRIT 28.8 % (42.0-54.0); HEMOGLOBIN 8.5 g/dL (13.5-17.5); IMMATURE GRANULOCYTES 2.2 % (0-5); LYMPHOCYTES 10.5 % (15-50); MCH 25.2 pg (26.0-34.0); MCHC 29.5 g/dL (31.0-37.0); MCV 85.5 fL (80.0-100.0); MEAN PLATELET VOLUME 10.3 fL (7.4-10.4); MONOCYTES 4.7 % (2-11); NEUTROPHILS 80.8 % (40-80); RBC 3.37 10x6/uL (4.20-6.10); RDW 18.8 % (11.5-14.5); WBC 8.6 10x3/uL (4.8-10.8)
[2018-08-26 07:36] LABS: PLATELET COUNT 315 10x3/uL (130-400)
[2018-08-26 09:00] VITALS: BP 115/66
[2018-08-26 13:17] LABS: FUNGUS STAIN Final report (())
[2018-08-26 17:26] VITALS: BP 113/66
--- NOTE | 2018-08-26 19:45 | NUR ---
PATIENT LAYING IN BED. NO COMPLAINTS AT THIS TIME. NO DISTRESS NOTED.
[2018-08-26 20:00] VITALS: BP 111/64
[2018-08-26 21:07] LABS: ACID FAST SMEAR Negative (()); AFB SPECIMEN PROCESSING Concentration (())
[2018-08-27 00:30] VITALS: BP 114/58
--- NOTE | 2018-08-27 02:45 | NUR ---
PATIENT LAYING IN BED. NO DISTRESS NOTED. NO COMPLAINTS AT THIS TIME.
--- NOTE | 2018-08-27 02:51 | NUR ---
IV TO R WRIST INFILTRATED. IV CATH OUT WITH TIP INTACT. 20G L HAND INSERTED X3 ATTEMPTS.
--- NOTE | 2018-08-27 03:04 | NUR ---
I have reviewed this patient and I concur with the Shift Assessment completed by the Licensed Practical Nurse today this shift.
[2018-08-27 05:00] VITALS: BP 115/76
[2018-08-27 06:15] LABS: BASOPHILS 0.6 % (0-2); EOSINOPHILS 0.7 % (0-7); HEMATOCRIT 31.4 % (42.0-54.0); HEMOGLOBIN 9.3 g/dL (13.5-17.5); IMMATURE GRANULOCYTES 1.3 % (0-5); LYMPHOCYTES 13.9 % (15-50); MCH 25.1 pg (26.0-34.0); MCHC 29.6 g/dL (31.0-37.0); MCV 84.9 fL (80.0-100.0); MEAN PLATELET VOLUME 9.9 fL (7.4-10.4); MONOCYTES 4.8 % (2-11); NEUTROPHILS 78.7 % (40-80); PLATELET COUNT 344 10x3/uL (130-400); RDW 18.7 % (11.5-14.5); WBC 10.4 10x3/uL (4.8-10.8)
[2018-08-27 06:29] LABS: ALBUMIN 1.7 g/dL (3.4-5.0); ANION GAP 8.1 mmol/L (8-16); BILIRUBIN - TOTAL 0.38 mg/dL (0.2-1.3); CALCIUM 7.9 mg/dL (8.5-10.1); CARBON DIOXIDE 31.9 mmol/L (21.0-32.0); CREATININE - SERUM 2.2 mg/dL (0.6-1.3); MAGNESIUM - SERUM 1.9 mg/dL (1.8-2.4); PROTEIN - SERUM 6.6 g/dL (6.4-8.2)
--- NOTE | 2018-08-27 09:00 | NUR ---
IR NURSE HERE TO CHECK ON PT AND WHEN STATES WHEN SHE WALKED IN, HIS CHEST TUBE WAS OUT AND LAYING ON THE FLOOR. SHE EXAMINED PT AND SUTURES WERE STILL INTACT AND INCISION HAD NOT OPENED. PT STATES HE FELT NO PAIN AND GUESSED IT MUST HAVE PULLED OUT WHEN HE TURNED OVER. NO RESP DISTRESS NOTED. DRESSING APPLIED OVER INCISION FOR CHEST TUBE.
[2018-08-27 10:02] VITALS: BP 113/72
--- NOTE | 2018-08-27 11:30 | NUR ---
Rehab Note- Acute Inpatient Rehab prescreen order received. The patient has a pending PT Eval- will monitor for functional mobility. The patient has had a chest tube that came out unintentionally today and has been having an increased fluid output. Will follow to see if the fluid resolves or if possible need for replacement of chest tube. Will follow at this time. Thank you for this referral! Malika Umaña RN Clinical Liaison, [facility] Re[facility]
--- NOTE | 2018-08-27 12:33 | NUR ---
Nutrition follow-up: Diet: Renal with Nepro TID Pt with poor po intake RDN visited with pt re: food preferences. Pt states he would eat everything on his plate if he had 1 packet of salt. RDD agreed to provide pt 1 packet of salt with lunch. RDN will monitor patients progress. Following.
--- NOTE | 2018-08-27 14:07 | NUR ---
I have reviewed this patient and I concur with the Shift Assessment completed by the Licensed Practical Nurse today this shift.
[2018-08-27 15:34] VITALS: BP 101/63
--- NOTE | 2018-08-27 15:35 | MORECARE ---
CASE MANAGEMENT DISCHARGE SUMMARY PATIENT: JOS ESPINAL UNIT: [id number] ADM DATE: 08/17/18 AGE: 87 : 34 SEX: M ROOM/BED: D.2106 AUTHOR: ABELINO,DOC PHYSICIAN: REFERRING PHYSICIAN: LUCIANA ANTON DO DATE OF SERVICE: 08/27/18 Discharge Plan Patient Name: JOS ESPINAL Facility: [facility]:[place] : 1930 Planned Disposition: Home with Home Health Anticipated Discharge Date: Discharge Date: Expected LOS: Initial Reviewer: [email or web address] Initial Review Date: 08/19/2018 Generated: 08/27/18 4:35 pm Comments DCP- Discharge Planning Updated by [email or web address]: Cedric Brnenan on 08/27/18 2:[address] Patient Name: JOS ESPINAL Encounter No: [id number] : 1930 Primary Insurance: MEDICARE A & B Anticipated DC Date: Planned Disposition: Home with Home Health External Planned Provider: [facility] DCP follow-up note: CM RECEIVED ORDER FOR INPATIENT REHAB PRESCREEN, SPOKE TO PT IN ROOM. PT WILL AGREE TO TALK TO REHAB, BUT PT STATES HE WANTS TO GO HOME AND HAS HOME HEALTH AT HOME. PT DOES NOT WANT TO STAY FOR REHAB. IMPORTANT MESSAGE FROM MEDICARE PROVIDED AND EXPLAINED. EZEKIEL OF INPATIENT REHAB NOTIFIED. PT REFUSED INPATIENT REHAB, REPORTS HE WANTS TO GO HOME WITH RESUMPTION OF Service Route [facility]. FOR DISCHARGE, NOTIFY [facility], , FAX DISCHARGE INFORMATION TO [facility] AT [phone]. Cedric Brennan, CASE ELVIA DCP- Discharge Planning Updated by [id number]: Marylou Radford on 08/19/18 2:[address] Patient Name: JOS ESPINAL Admission Status: ER Accout number: [id number] Admission Date: 08-17-2018 : 1930 Admission Diagnosis: Attending: LUCIANA ANTON Current LOS: 2 Anticipated DC Date: Planned Disposition: Home with Home Health Primary Insurance: MEDICARE A & B Discharge Planning Comments: CM met with patient to complete initial dc planning assessment. CM educated patient on the CM role and verbal consent given by patient to complete assessment. Patient lives at home with his disabled step son. At discharge patient plans to return and feels this is a safe discharge. CM discussed availability of home health, rehab services, and medical equipment. Patient states he has home health with [facility] and would like to resume this at discharge, VIVI form signed for [facility]. States CM will continue to follow and will assist as needed with dc plans/needs. Field Crop I Farmworker: Marylou Acostajaron DCPIA - Discharge Planning Initial Assessment Updated by [id number]: Marylou Radford on 08/19/18 3:17 pm * Is the patient Alert and Oriented? Yes * PCP Dr[facility] Bella in [facility] * Preadmission Environment Home with Family * ADLs Independent * Equipment None * List name and contact numbers for known caregivers / representatives who currently or will assist patient after discharge: Scott Crawford [facility] - [phone] Светлана Pierre [facility] - [phone] ([place]) * Verbal permission to speak to the caregivers and representatives has been obtained from the patient. Yes * Community resources currently utilized Home Health * Please name any agencies selected above. [facility] * Additional services required to return to the preadmission environment? No * Can the patient safely return to the preadmission environment? Yes * Has this patient been hospitalized within the prior 30 days at any hospital? No Coverage Notice Reviewer: [id number] - Marylou Prabhakar Notice Issued Date-Time: 08/19/2018 15:17 Notice Type: Patient Choice Letter Notice Delivered To: Patient Relationship to Patient: Self Supervisor Reinforced Steel Placing Name: Delivery Method: HAND - Hand Delivered Lluvia Days: Prior Verbal Notification: Recipient Understood Notice: Yes Recipient Signature: Yes Med Rec Note Co-signed by Attending: Coverage Notice Comment: VIVI for [facility] Reviewer: [id number] - Cedric Brennan Notice Issued Date-Time: 08/27/2018 14:55 Notice Type: IM Discharge Notice Notice Delivered To: Patient Relationship to Patient: Supervisor Reinforced Steel Placing Name: Delivery Method: HAND - Hand Delivered Lluvia Days: Prior Verbal Notification: Recipient Understood Notice: Yes Recipient Signature: Yes Med Rec Note Co-signed by Attending: Coverage Notice Comment: Last DP export: 08/19/18 2:20 pm Patient Name: JOS ESPINAL Page [phone] at 1535 All edits/amendments must be made on the electronic document DICTATION DATE: 08/27/181534 NATIONAL VAN TRUCK DRIVER: JENNY 08/27/181534 RPT#: [id number] DC DATE: STATUS: ADM IN [facility] [address] [place] [address] END OF REPORT
--- NOTE | 2018-08-27 19:52 | NUR ---
RESUMING PT CARE. PT IS ALERT SITTING CHAIR SIDE. NO C/O VOICED. NO S/S OF DISTRESS NOTED AT THIS TIME. CALL LIGHT IN REACH AT CHAIR SIDE. WILL CONTINUE TO MONITOR PT AND FOLLOW PLAN OF CARE.
[2018-08-27 20:00] VITALS: BP 105/62
[2018-08-28] VITALS: BP 121/65
[2018-08-28 04:00] VITALS: BP 154/70
--- NOTE | 2018-08-28 04:43 | NUR ---
I have reviewed this patient and I concur with the Shift Assessment completed by the Licensed Practical Nurse today this shift.
[2018-08-28 05:49] LABS: BASOPHILS 0.2 % (0-2); EOSINOPHILS 0.4 % (0-7); HEMATOCRIT 30.1 % (42.0-54.0); HEMOGLOBIN 8.8 g/dL (13.5-17.5); IMMATURE GRANULOCYTES 0.8 % (0-5); LYMPHOCYTES 4.8 % (15-50); MCH 25.2 pg (26.0-34.0); MCHC 29.2 g/dL (31.0-37.0); MCV 86.2 fL (80.0-100.0); MONOCYTES 4.7 % (2-11); NEUTROPHILS 89.1 % (40-80); PLATELET COUNT 337 10x3/uL (130-400); RBC 3.49 10x6/uL (4.20-6.10); RDW 19.1 % (11.5-14.5); WBC 16.2 10x3/uL (4.8-10.8)
[2018-08-28 06:07] LABS: ALBUMIN 1.7 g/dL (3.4-5.0); ANION GAP 8.6 mmol/L (8-16); BILIRUBIN - TOTAL 0.4 mg/dL (0.2-1.3); CALCIUM 8.1 mg/dL (8.5-10.1); CARBON DIOXIDE 29.3 mmol/L (21.0-32.0); CREATININE - SERUM 2.5 mg/dL (0.6-1.3); MAGNESIUM - SERUM 2.2 mg/dL (1.8-2.4); POTASSIUM - SERUM 3.9 mmol/L (3.5-5.1); PROTEIN - SERUM 6.6 g/dL (6.4-8.2)
--- NOTE | 2018-08-28 07:25 | NUR ---
REPORT RECEIVED. WILL CONTINUE WITH POC. PT CURRENTLY LYING SEMI FOWLERS. CALL LIGHT W/I REACH. PT IS RESTING AT THE MOMENT. RR EVEN AND UNLABORED ON 2L 02. NS INFUSING @KVO VIA R.FOR PIV. NO S/S OF DISTRESS NOTED. WILL CTM.
[2018-08-28 08:26] LABS: INR 1.23 (0.85-1.17)
--- NOTE | 2018-08-28 09:54 | NUR ---
PT TRANSFERED TO DIALYSIS. WILL CTM.
[2018-08-28 10:30] VITALS: BP 135/63
--- NOTE | 2018-08-28 11:32 | NUR ---
I have reviewed this patient and I concur with the Shift Assessment completed by the Licensed Practical Nurse today this shift.
--- NOTE | 2018-08-28 13:53 | NUR ---
PT RETURNED FROM DIALYSIS WHERE THEY GO 2L OFF. PT IS AAO AND SITTING ON SIDE OF BED EATING LUNCH. WILL CTM.
[2018-08-28 16:08] VITALS: BP 104/68
--- NOTE | 2018-08-28 16:41 | NUR ---
PT CURRENTLY SITTING UP IN CHAIR. CALL LIGHT W/I REACH. PT IS AAO AND UP WITH ASSIST. NO S/S OF DISTRESS NOTED. RR EVEN AND ULABORED ON 2L 02. R.FOR PIV IS SALINE LOCKED. PT DENIES ANY NEEDS. WILL CTM.
[2018-08-28 20:06] VITALS: BP 92/52
--- NOTE | 2018-08-28 20:12 | NUR ---
RESUMING PT CARE. PT ALERT LAYING IN BED. NO C/O VOICED. NO S/S OF DISTRESS NOTED AT THIS TIME. BED IN LOW POSITION WITH CALL LIGHT IN USE. SIDE RAILS UP X 2. WILL CONTINUE TO MONITOR PT AND FOLLOW PLAN OF CARE.
[2018-08-28 23:55] VITALS: BP 100/59
--- NOTE | 2018-08-29 04:06 | NUR ---
I have reviewed this patient and I concur with the Shift Assessment completed by the Licensed Practical Nurse today this shift.
[2018-08-29 04:36] LABS: BASOPHILS 0.2 % (0-2); EOSINOPHILS 0.3 % (0-7); HEMATOCRIT 30.2 % (42.0-54.0); HEMOGLOBIN 8.8 g/dL (13.5-17.5); IMMATURE GRANULOCYTES 0.5 % (0-5); LYMPHOCYTES 5.7 % (15-50); MCH 25.2 pg (26.0-34.0); MCHC 29.1 g/dL (31.0-37.0); MCV 86.5 fL (80.0-100.0); MEAN PLATELET VOLUME 9.9 fL (7.4-10.4); MONOCYTES 6.3 % (2-11); PLATELET COUNT 336 10x3/uL (130-400); RBC 3.49 10x6/uL (4.20-6.10); RDW 18.7 % (11.5-14.5); WBC 14.4 10x3/uL (4.8-10.8)
[2018-08-29 04:50] LABS: ANION GAP 5.7 mmol/L (8-16); CALCIUM 8.1 mg/dL (8.5-10.1); CARBON DIOXIDE 33.1 mmol/L (21.0-32.0); CREATININE - SERUM 2.3 mg/dL (0.6-1.3); POTASSIUM - SERUM 3.8 mmol/L (3.5-5.1)
--- NOTE | 2018-08-29 07:00 | NUR ---
RECEIVED REPORT. ASSUMED CARE OF PATIENT. PATIENT SITTING IN CHAIR AT BEDSIDE HAVING A CUP OF COFFEE. CALL LIGHT WIHTIN REACH. NO DISTRESS. RESP EVEN AND UNLABORED. DENIES NEEDS AT THIS TIME. PATIENT IS VERY HARD OF HEARING.
[2018-08-29 08:48] VITALS: BP 105/59
--- NOTE | 2018-08-29 08:57 | NUR ---
PATIENT SITTING AT BEDSIDE IN CHAIR, PATIENT TRYING TO COUGH UP PHLEM. SMALL AMOUNT OF CLEAR WHITE PHLEM PRODUCED. DECREASED AIR MOVEMENT TO RIGHT POSTERIOR LOBE. CALL LIGHT WITHIN REACH.
[2018-08-29 09:12] LABS: FUNGUS MYCOLOGY CULTURE Preliminary report (())
--- NOTE | 2018-08-29 11:30 | NUR ---
PATIENT WITH EYES CLOSED, SLEEPING IN CHAIR AT BEDSIDE. EASILY AROUSED. CALL LIGHT WITHIN REACH. COFFEE PROVIDED UPON REQUEST. NO DISTRESS.
[2018-08-29 12:25] VITALS: BP 115/79
--- NOTE | 2018-08-29 15:15 | NUR ---
PATIENT EASILY AROUSED. CALL LIGHT WITHIN EACH. DENIES NEEDS AT THIS TIME. TRYING TO COUGH CLEAR SPUTUM UP. NO DISTRESS.
[2018-08-29 15:59] VITALS: BP 136/65
--- NOTE | 2018-08-29 18:39 | NUR ---
PATIENT CONTINUES TO SIT AT BEDSIDE. RECEIVING BREATHING TREATMENT AT THIS TIME. NO DISTRESS. REMAINS CONFUSED.
[2018-08-29 20:44] VITALS: BP 92/50
--- NOTE | 2018-08-29 22:13 | NUR ---
INITIAL ROUNDS COMPLETED AT 1910 HRS. PT DENIED ANY DISCOMFORT. PT VERY [place]. ASSESSMENT COMPLETED AT 1954 HRS. VSS. CAF PER CM HR 98. PT ALERT AND ORIENTEDE TO PERSON, PLACE AND SITUATION. REORIENTED TO TIME. LUNGS DIMINISHED IN BASES BILAT. IV TO RFA WITH NS AT 10CC/HR. OLD R ARM FISTULA NOTED. NO BRUIT OR THRILL. R CHEST HEMOSPLIT CLEAN, DRY AND INTACT. BRUISING NOTED TO BILAT ARMS. 1+ EDEMA NOTED TO FEET. LOWER LEGS WITH DISCOLORATION. PT IN RECLINER. PM MEDS GIVEN. PT DECLINEDOFFER TO GO TO BED. STATES HE WANTS TO SLEEP IN RECLINER. FEET ELEVATED IN RECLINER AND CALL LIGHT WITHIN REACH.
[2018-08-30 00:54] VITALS: BP 90/50
--- NOTE | 2018-08-30 01:07 | NUR ---
PT AWAKE; DENIED ANY DISCOMFORT. PT DECLINES OFFE TO GO TO BED. PT STATES WILL CALL WHEN HE WANTS TO GET IN THE BED. CALL LIGHT WITHIN REACH.
--- NOTE | 2018-08-30 02:52 | NUR ---
PT AWAKE; DECLINES OFFER TO ASSIST TO BED. CALL LIGHT WITHIN REACH.
[2018-08-30 04:00] VITALS: BP 92/56
[2018-08-30 04:47] LABS: HEMATOCRIT 29.9 % (42.0-54.0); HEMOGLOBIN 8.9 g/dL (13.5-17.5); MCH 25.8 pg (26.0-34.0); MCHC 29.8 g/dL (31.0-37.0); MCV 86.7 fL (80.0-100.0); MEAN PLATELET VOLUME 10.2 fL (7.4-10.4); PLATELET COUNT 383 10x3/uL (130-400); RBC 3.45 10x6/uL (4.20-6.10); WBC 28.4 10x3/uL (4.8-10.8)
[2018-08-30 04:52] LABS: INR 1.25 (0.85-1.17); PROTIME 15.1 SECONDS (11.6-15.0)
[2018-08-30 05:00] LABS: ANION GAP 8.6 mmol/L (8-16); CALCIUM 8.6 mg/dL (8.5-10.1); CARBON DIOXIDE 28.8 mmol/L (21.0-32.0)
[2018-08-30 05:02] LABS: CREATININE - SERUM 3.1 mg/dL (0.6-1.3); POTASSIUM - SERUM 4.4 mmol/L (3.5-5.1)
[2018-08-30 05:10] LABS: LYMPHOCYTES 6 % (15-50); MONOCYTES 4 % (2-11); NEUTROPHILS 90 % (40-80); PLATELET ESTIMATE NORMAL; PLATELET MORPHOLOGY GIANT PLTS PRESENT
--- NOTE | 2018-08-30 05:52 | NUR ---
PT DOZING IN RECLINER. NO DISTRESS NOTED. CALL LIGHT WITHIN REACH.
--- NOTE | 2018-08-30 06:46 | NUR ---
VSS THROUGHOUT NIGHT. PT DENIED ANY DISCOMFORT. NEEDS MET; WILL CONTINUE TO MONITIOR.
--- NOTE | 2018-08-30 07:00 | NUR ---
RECEIVED REPORT. ASSUMED CARE OF PATIENT. PATIENT SITTING UP IN CHAIR WITH EYES CLOSED. REPORTED THAT PATIENT WAS UP ALL NIGHT. PATIENT NOT AWAKENED. RESP EVEN AND UNLABORED. CALL LIGHT IN PATIENT LAP. PERSONAL ITEMS WITHIN REACH ON BEDSIDE TABLE. NO DISTRESS.
--- NOTE | 2018-08-30 07:36 | NUR ---
RADIOLOGY AT BEDSIDE FOR CXR AT THIS TIME.
[2018-08-30 07:58] VITALS: BP 103/55
--- NOTE | 2018-08-30 09:37 | NUR ---
PATIENT SITTING TO SIDE OF BED. DOES NOT WANT TO GET INTO CHAIR. CALL LIGHT WITHIN REACH. NO DISTRESS.
--- NOTE | 2018-08-30 10:40 | NUR ---
PATIENT OFF UNIT FOR CT OF CHEST AT THIS TIME.
--- NOTE | 2018-08-30 11:10 | NUR ---
PATIENT RETURNED TO UNIT FROM CT AT THIS TIME.
[2018-08-30 11:22] VITALS: BP 98/61
--- NOTE | 2018-08-30 12:43 | NUR ---
PATIENT REFUSING TO EAT. STATES HE HAS NO APPETITE AT ALL. PATIENT WITH POOR ORAL INTAKE PAST 2 DAYS.
--- NOTE | 2018-08-30 13:19 | NUR ---
PATIENTS DAUGHTER CALLED TO CHECK ON HIM. UPDATE PROVIDED.
--- NOTE | 2018-08-30 14:03 | NUR ---
ORDER FAXED OVER TO RADIOLOGY FOR CHEST TUBE PLACEMENT.
--- NOTE | 2018-08-30 15:52 | NUR ---
SPOKE WITH JAYA IN XR AND SHE SAYS THAT GAVE A VERBAL ORDER TO HOLD COUMADIN AND THEY WILL EVALUATE THE PATIENT ON 08/31/18 FOR POSSIBLE CHEST TUBE PLACEMENT.
--- NOTE | 2018-08-30 16:09 | NUR ---
PATIENTS DAUGHTER CALLED AGAIN TO CHECK ON HER DAD AND TO SEE IF ANY MORE TEST RESULTS CAME BACK. EXPLAINED TO HER THAT IS TAKES 24-48 HOURS FOR BLOOD CULTURES TO COME BACK. DISCUSSED ALSO THAT ATTENDING PHYSICIAN HAS ORDERED A CHESTTUBE TO BE PLACED BUT BECAUSE HE IS ON COUMADIN, WE HAVE TO WAIT UNTIL TOMORROW. PATIENTS DAUGHTER VERBALIZED UNDERSTANDING AND THANKED THIS NURSE.
[2018-08-30 16:10] VITALS: BP 99/48
--- NOTE | 2018-08-30 17:00 | NUR ---
IN PATIENT ROOM TO CHECK TO SEE IF PATIENT IS EATING AND PATIENT ASLEEP IN CHAIR, WITH EYES CLOSED, HOLDING HEART IN HIS HAND UP TO HIS RIGHT EAR. WHEN THIS ELECTROLYTIC ETCHER TAPPED THE PATIENT SHOULDER TO ASK IF HE IS OKAY, PATIENT STATES HE IS ON THE PHONE, THIS ELECTROLYTIC ETCHER PROCEDED TO EXPLAIN THAT THE PATIENT HAD HIS HEART MONITOR UP TO HIS EAR. PATIENT CELL PHONE FOUND LYING ON THE BED NEXT TO HIS CHAIR. CELL PHONE PROVIDED TO PATIENT. ASSISTED PATIENT TO CUT UP HIS DINNER. PATIENT NOW AWAKE AND EATING. CALL LIGHT WITHIN REACH. NO DISTRESS.
--- NOTE | 2018-08-30 19:05 | NUR ---
SITTING IN RECLINER. ALERT/ORIENTED X3. REQUESTED ASSISTANCE WITH REPOSITIONING IN RECLINER. SOME [facility] NOTED. RR 18 EVEN NON-LABORED ON ROOM AIR. SOME SOB WITH EXERTION. DENIES PAIN. REQUESTED DINNER TRAY REMOVED. HAS CALL LIGHT IN REACH. DOOR LEFT OPENED TO MONITOR CLOSELY.
[2018-08-30 20:00] VITALS: BP 100/47
--- NOTE | 2018-08-30 20:50 | NUR ---
ADMIN SCHED MEDS WITH SIPS OF WATER, SWALLOWING WITHOUT DIFFICULTY. TOOK A FEW BITE OF HIS PIE.
[2018-08-31] VITALS: BP 100/52
--- NOTE | 2018-08-31 00:30 | NUR ---
FUR CLIPPER TAKING VS. DENIES ANY NEEDS.
--- NOTE | 2018-08-31 01:30 | NUR ---
RESTING IN RECLINER. REFUSES TO GO TO THE BED. HAS HIS LEGS ELEVATED. DENIES ANY NEEDS.
--- NOTE | 2018-08-31 03:56 | NUR ---
NO CHANGES NOTED. RESTING WITH EYES CLOSED. RR 16 EVEN NON-LABORED ON 02 AT 2L/NC. HAS CALL LIGHT IN REACH. DOOR LEFT OPENED TO MONITOR CLOSELY.
[2018-08-31 04:00] VITALS: BP 107/50
[2018-08-31 06:19] LABS: ANION GAP 9.3 mmol/L (8-16); CALCIUM 8.5 mg/dL (8.5-10.1); CARBON DIOXIDE 31.9 mmol/L (21.0-32.0); CREATININE - SERUM 3.9 mg/dL (0.6-1.3); POTASSIUM - SERUM 4.2 mmol/L (3.5-5.1)
[2018-08-31 06:26] LABS: BASOPHILS 0.2 % (0-2); EOSINOPHILS 0.2 % (0-7); HEMATOCRIT 28.3 % (42.0-54.0); HEMOGLOBIN 8.5 g/dL (13.5-17.5); IMMATURE GRANULOCYTES 0.5 % (0-5); LYMPHOCYTES 5.4 % (15-50); MCH 25.8 pg (26.0-34.0); MEAN PLATELET VOLUME 9.7 fL (7.4-10.4); MONOCYTES 5.2 % (2-11); NEUTROPHILS 88.5 % (40-80); RBC 3.29 10x6/uL (4.20-6.10); RDW 18.8 % (11.5-14.5)
[2018-08-31 06:27] LABS: PLATELET COUNT 486 10x3/uL (130-400); WBC 17.7 10x3/uL (4.8-10.8)
[2018-08-31 06:50] LABS: INR 1.62 (0.85-1.17); PROTIME 18.6 SECONDS (11.6-15.0)
--- NOTE | 2018-08-31 07:30 | NUR ---
ASSESSMENT COMPLETED. ALERT AND ORIENTED. TELEMERTY SHOWS CAF 74. UP IN BEDSIDE CHAIR. RIGHT CHEST HEMOSPLIT. RIGHT FA SL. OLD AVF IN RIGHT ARM. DENIES ANY NEEDS. CALL LIGHT IN REACH
[2018-08-31 07:53] VITALS: BP 109/58
--- NOTE | 2018-08-31 07:54 | MORECARE ---
CASE MANAGEMENT DISCHARGE SUMMARY PATIENT: JOS ESPINAL UNIT: [id number] ADM DATE: 08/17/18 AGE: 87 : 32 SEX: M ROOM/BED: D.2106 AUTHOR: ABELINO,DOC PHYSICIAN: REFERRING PHYSICIAN: LUCIANA ANTON DO DATE OF SERVICE: 08/31/18 Discharge Plan Patient Name: JOS ESPINAL Facility: [facility] : 1930 Planned Disposition: Home with Home Health Anticipated Discharge Date: Discharge Date: Expected LOS: Initial Reviewer: [id number] Initial Review Date: 08/19/2018 Generated: 08/31/18 8:53 am Comments DCP- Discharge Planning Updated by [id number]: Cedric Brennan on 08/27/18 2:[address] Patient Name: JOS ESPINAL Encounter No: [id number] : 1930 Primary Insurance: MEDICARE A & B Anticipated DC Date: Planned Disposition: Home with Home Health External Planned Provider: [facility] DCP follow-up note: CM RECEIVED ORDER FOR INPATIENT REHAB PRESCREEN, SPOKE TO PT IN ROOM. PT WILL AGREE TO TALK TO REHAB, BUT PT STATES HE WANTS TO GO HOME AND HAS HOME HEALTH AT HOME. PT DOES NOT WANT TO STAY FOR REHAB. IMPORTANT MESSAGE FROM MEDICARE PROVIDED AND EXPLAINED. EZEKIEL OF INPATIENT REHAB NOTIFIED. PT REFUSED INPATIENT REHAB, REPORTS HE WANTS TO GO HOME WITH [facility]. FOR DISCHARGE, NOTIFY [facility], , FAX DISCHARGE INFORMATION TO [facility] AT [phone]. Cedric Brennan, CASE MANAGEMENT DCP- Discharge Planning Updated by [id number]: Marylou Radford on 08/19/18 2:[address] Patient Name: JOS ESPINAL Admission Status: ER Accout number: [id number] Admission Date: 08-17-2018 : 1930 Admission Diagnosis: Attending: LUCIANA ANTON Current LOS: 2 Anticipated DC Date: Planned Disposition: Home with Home Health Primary Insurance: MEDICARE A & B Discharge Planning Comments: CM met with patient to complete initial dc planning assessment. CM educated patient on the CM role and verbal consent given by patient to complete assessment. Patient lives at home with his disabled step son. At discharge patient plans to return and feels this is a safe discharge. CM discussed availability of home health, rehab services, and medical equipment. Patient states he has home health with [facility] and would like to resume this at discharge, VIVI form signed for [facility]. States CM will continue to follow and will assist as needed with dc plans/needs. Senior Writer: Marylou Acostajaron DCPIA - Discharge Planning Initial Assessment Updated by [id number]: Marylou Radford on 08/19/18 3:17 pm * Is the patient Alert and Oriented? Yes * PCP Dr[facility] Bella in [facility] * [facility] * Preadmission Environment Home with Family * ADLs Independent * Equipment None * List name and contact numbers for known caregivers / representatives who currently or will assist patient after discharge: Scott Crawford [facility] - [phone] Светлана Pierre [facility] - [phone] ([place]) * Verbal permission to speak to the caregivers and representatives has been obtained from the patient. Yes * Community resources currently utilized Home Health * Please name any agencies selected above. [facility] * Additional services required to return to the preadmission environment? No * Can the patient safely return to the preadmission environment? Yes * Has this patient been hospitalized within the prior 30 days at any hospital? No Coverage Notice Reviewer: [id number] - Marylou Prabhakar Notice Issued Date-Time: 08/19/2018 15:17 Notice Type: Patient Choice Letter Notice Delivered To: Patient Relationship to Patient: Self Hotel Maintenance Technician Name: Delivery Method: HAND - Hand Delivered Lluvia Days: Prior Verbal Notification: Recipient Understood Notice: Yes Recipient Signature: Yes Med Rec Note Co-signed by Attending: Coverage Notice Comment: VIVI for [facility] Reviewer: [id number] - Cedric Brennan Notice Issued Date-Time: 08/27/2018 14:55 Notice Type: IM Discharge Notice Notice Delivered To: Patient Relationship to Patient: Hotel Maintenance Technician Name: Delivery Method: HAND - Hand Delivered Lluvia Days: Prior Verbal Notification: Recipient Understood Notice: Yes Recipient Signature: Yes Med Rec Note Co-signed by Attending: Coverage Notice Comment: Last DP export: 08/27/18 2:35 p Patient Name: JOS ESPINAL Page [phone] at 0754 All edits/amendments must be made on the electronic document DICTATION DATE: 08/31/18752 DRYWALL INSTALLER: JENNY 08/31/18752 RPT#: [id number] DC DATE: STATUS: ADM IN [facility] [address] [place] [address] END OF REPORT
--- NOTE | 2018-08-31 10:45 | NUR ---
PT TO DIALYSIS PER BED.
[2018-08-31 11:19] VITALS: BP 115/62
--- NOTE | 2018-08-31 12:22 | NUR ---
I have reviewed this patient and I concur with the Shift Assessment completed by the Licensed Practical Nurse today this shift.
--- NOTE | 2018-08-31 18:10 | NUR ---
UP IN BEDSIDE CHAIR WITH ASSIST. DENIES ANY NEEDS. TELEMERTY SHOWS CAF. CALL LIGHT IN REACH, WILL MONITOR
--- NOTE | 2018-08-31 19:20 | NUR ---
UP IN CHAIR WITH KEVIN ALARM TECH SEEING TO NEEDS PT CONFUSED AND DOES NOT RESPOND TO QUESTIONS LCTA CALL LIGHT IN REACH
[2018-08-31 20:00] VITALS: BP 100/52
[2018-09-01 00:59] VITALS: BP 91/50
[2018-09-01 05:49] VITALS: BP 104/45
[2018-09-01 06:15] LABS: ANION GAP 7.6 mmol/L (8-16); CARBON DIOXIDE 32.3 mmol/L (21.0-32.0); POTASSIUM - SERUM 3.9 mmol/L (3.5-5.1)
[2018-09-01 06:35] LABS: BASOPHILS 0.2 % (0-2); EOSINOPHILS 0.2 % (0-7); HEMATOCRIT 27.3 % (42.0-54.0); HEMOGLOBIN 8.2 g/dL (13.5-17.5); IMMATURE GRANULOCYTES 0.4 % (0-5); LYMPHOCYTES 4.8 % (15-50); MCH 25.7 pg (26.0-34.0); MCV 85.6 fL (80.0-100.0); MEAN PLATELET VOLUME 9.7 fL (7.4-10.4); MONOCYTES 7.6 % (2-11); NEUTROPHILS 86.8 % (40-80); PLATELET COUNT 513 10x3/uL (130-400); RBC 3.19 10x6/uL (4.20-6.10); RDW 18.5 % (11.5-14.5); WBC 13.8 10x3/uL (4.8-10.8)
--- NOTE | 2018-09-01 07:00 | NUR ---
RECEIVED REPORT. ASSUMED CARE OF PATIENT. PATIENT SITTING IN CHAIR AT BEDSIDE WITH EYES CLOSED. RESP EVEN AND UNLABORED. NO DISTRESS.
--- NOTE | 2018-09-01 07:15 | NUR ---
RECEIVED CALL FROM [facility] IN [facility], MAKE PATIENT NPO FOR POSSIBLE THORACENTESIS TODAY.
[2018-09-01 08:25] LABS: INR 1.72 (0.85-1.17); PROTIME 19.5 SECONDS (11.6-15.0)
--- NOTE | 2018-09-01 08:29 | NUR ---
SPOKE WITH QUAN IN THE LAB, INQUIRING ABOUT HOW MUCH LONGER IT WILL BE UNTIL PT / INR RESULTS. QUAN STATES IT SHOULD NOT BE MUCH LONGER.
--- NOTE | 2018-09-01 08:29 | NUR ---
SPOKE WITH VINNY IN SPECIALS AT 0805 AND SHE REPORTS THAT PATIENTS INR HAS TO BE LESS THAN 1.5 FOR THORACENTESIS/CHEST TUBE TO BE DONE TODAY. AWAITING RESULTS.
--- NOTE | 2018-09-01 08:54 | NUR ---
NOTIFIED VINNY OF PATIENTS INR, ELEVATED HIGHER TODAY THAN YESTERDAY WITH COUMADIN ON HOLD. INR 1.72. SHE STATES SHE WILL SPEAK WITH BUT PROBABLY WILL NOT DO THORACENTESIS/CHEST TUBE PLACEMENT TODAY.
[2018-09-01 10:25] VITALS: BP 115/58
--- NOTE | 2018-09-01 12:11 | NUR ---
Nutrition follow-up: Diet: Renal with Nepro TID PO intake ~30% of meals RDN has spoken with pt on numerous occasions re: food preferences. Pt does not have much of an appetite and hates the renal diet. Labs reviewed If physicians agree, pt would benefit from diet changed to regular as tolerated; however, RDN feels pt would still have poor po intake. Recommend an appetite stimulant. RDN following.
--- NOTE | 2018-09-01 12:26 | NUR ---
SPOKE TO PATIENTS DAUGHTER WHO IS ACTUALLY IN [place] WITH AN [place] NUMBER. SHE JUST WANTED TO CHECK ON HIM AND SEE IF HE HAS EATEN THE CUPCAKES SHE SENT YESTERDAY. CUPCAKE STILL ON BEDSIDE TABLE. WILL CALL TO REPORT ANY SIGNIFICANT CHANGES.
[2018-09-01 15:55] VITALS: BP 94/45
--- NOTE | 2018-09-01 16:14 | NUR ---
Rehab Note- Visited with the patient, states he really wants to go home when able but understands that he probably does need acute rehab upon discharge from the acute hospital. Left information & contact about [facility] Acute Inpatient Rehab, states he will think about it & talk with his step son about it. Explained that if he does go home does have the option of caoming back to inpatient acute rehab from home if needed. WIll continue to follow at this time. Thank you for this referral! Malika Umaña RN CLinical Liaison, [facility] Rehab
[2018-09-01 18:30] VITALS: BP 100/83
--- NOTE | 2018-09-01 18:36 | NUR ---
SITTING IN CHAIR AT BEDSIDE. NOT EATING DINNER. STATES NO APPETITE. CALL LIGHT WITHIN REACH. NO DISTRESS.
[2018-09-01 20:48] VITALS: BP 107/54
--- NOTE | 2018-09-01 21:00 | NUR ---
RECIEVED BEDSIDE REPORT. VSS. PT CONFUSED, BUT CALM AND SITTING IN CHAIR. ALL MEDS GIVEN. BLANKET PROVIDED PER PT'S REQUEST. FOOD AT BEDSIDE TABLE, PT STATES HE HAS NO APPETITE. PT DENEIS ANY FURTHER NEEDS AT THIS TIME WILL CTM. CL IN REACH.
--- NOTE | 2018-09-01 23:14 | NUR ---
PT APPEARS INCREASINGLY CONFUSED. STATES "I CAN SEE FLASJING LIGHTS IN THE ROOM, AND WHO ARE ALL THIS PEOPLE WALKING AROUND IN MY KITCHEN." REORIENT PATIENT AND HELD PROVIDE COMFORT CARE AT THIS TIME. PT CURRENTLY RESTING IN COUCH, DENIES ANY FURHTER NEEDS AT THIS TIME. WILL CTM.
[2018-09-02] VITALS (7 sets, daily range): BP systolic 100–134; BP diastolic 57–79; Ht 180.3 cm; Wt 63.5 kg
[2018-09-02 06:12] LABS: ANION GAP 10.6 mmol/L (8-16); CALCIUM 8.2 mg/dL (8.5-10.1); CARBON DIOXIDE 32.8 mmol/L (21.0-32.0); CREATININE - SERUM 3.7 mg/dL (0.6-1.3); POTASSIUM - SERUM 4.4 mmol/L (3.5-5.1)
[2018-09-02 06:38] LABS: BASOPHILS 0.2 % (0-2); EOSINOPHILS 0.2 % (0-7); HEMATOCRIT 30.6 % (42.0-54.0); IMMATURE GRANULOCYTES 0.4 % (0-5); LYMPHOCYTES 5.9 % (15-50); MCH 25.6 pg (26.0-34.0); MCHC 29.4 g/dL (31.0-37.0); MCV 86.9 fL (80.0-100.0); MEAN PLATELET VOLUME 9.4 fL (7.4-10.4); MONOCYTES 5.6 % (2-11); NEUTROPHILS 87.7 % (40-80); PLATELET COUNT 587 10x3/uL (130-400); RBC 3.52 10x6/uL (4.20-6.10); RDW 18.5 % (11.5-14.5); WBC 10.4 10x3/uL (4.8-10.8)
[2018-09-02 08:03] LABS: INR 1.75 (0.85-1.17); PROTIME 19.8 SECONDS (11.6-15.0)
--- NOTE | 2018-09-02 08:45 | NUR ---
GOT UP TO BATHROOM WITHOUT ASST AND PULLED OUT HIS IV. TIP IS INTACT.
--- NOTE | 2018-09-02 09:10 | NUR ---
TO DIALYSIS VIA BED. IV WILL BE RESTARTED WHEN HE RETURNS.
--- NOTE | 2018-09-02 13:12 | NUR ---
Nutrition follow-up: Pt to have thoracentesis today with chest tube placement PO intake continues to be poor; did not eat the cupcake his daughter sent Wt: 141# Labs reviewed Recommend PEG tube placement and TF of Nepro start due to pts severely malnourished state. Recommend Nepro at goal rate of 45 ml/hr. RDN following.
--- NOTE | 2018-09-02 15:28 | NUR ---
IV RESTARTED LEFT INNER ARM BY VASCULAR NURSE X 1 ATTEMPT WITH 22 GAUGE
--- NOTE | 2018-09-02 17:06 | NUR ---
I have reviewed this patient and I concur with the Shift Assessment completed by the Licensed Practical Nurse today this shift.
--- NOTE | 2018-09-02 17:30 | NUR ---
WALKED IN TO PTS ROOM TO HANG HIS IVPB AND HE WAS HOLDING HIS HEMESPLIT IN HIS HAND. SMALL AMT BLOOD TRICKLING DOWN HIS CHEST. PRESSURE APPLIED AND BLEEDING STOPPED. DRESSING APPLIED AND SHERICE NOTIFIED. ORDER TO CONSULT SURGERY FOR PLACEMENT TOMORROW AND CONSULT PUT IN COMPUTER.
--- NOTE | 2018-09-02 20:00 | NUR ---
RECIEVED BEDSIDE REPORT. ROUNDS COMPLETED. VSS, PT ALERT WITH EPISODES OF CONFUSION. PT SITTING IN COUCH. DRESSING TO RIGHT CHEST. NOTIFIED PT ABOUT CONSENT FOR THORACENTHESIS, PT STATES "I DON'T FEEL LIKE SIGNING ANYTHING RIGHT NOW." WILL CTM. CL IN REACH, BED IN LOW SR UP X2.
--- NOTE | 2018-09-02 22:20 | NUR ---
MEDS GIVEN. MOVED PT FROM COUCH TO BED. WARM BLANKET PROVIDED PER PT REQUEST. PT CURRENLTY RESTING IN BED WITH EYES OPEN. WILL CTM.
[2018-09-03] VITALS: BP 100/58
[2018-09-03 04:00] VITALS: BP 115/75
[2018-09-03 07:00] LABS: BASOPHILS 0.1 % (0-2); EOSINOPHILS 0.3 % (0-7); HEMOGLOBIN 8.9 g/dL (13.5-17.5); IMMATURE GRANULOCYTES 0.8 % (0-5); LYMPHOCYTES 10.5 % (15-50); MCH 25.6 pg (26.0-34.0); MCHC 29.7 g/dL (31.0-37.0); MCV 86.5 fL (80.0-100.0); MEAN PLATELET VOLUME 8.5 fL (7.4-10.4); MONOCYTES 6.9 % (2-11); NEUTROPHILS 81.4 % (40-80); PLATELET COUNT 470 10x3/uL (130-400); RBC 3.47 10x6/uL (4.20-6.10); RDW 18.7 % (11.5-14.5); WBC 8.9 10x3/uL (4.8-10.8)
--- NOTE | 2018-09-03 07:10 | NUR ---
REPORT RECEIVED FROM VIOLIN MAKER HAND AND PATIENT CARE ASSUMED. PATIENT LAYING ON RT SIDE WITH EYES CLOSED AND BREATHING EVENLY. VSS. WILL CONTINUE WITH PLAN OF CARE. SR UP X 2 BED IN LOW POSITION AND CALL LIGHT IN REACH.
[2018-09-03 07:17] LABS: INR 1.61 (0.85-1.17); PROTIME 18.6 SECONDS (11.6-15.0)
[2018-09-03 07:18] LABS: APTT 46.7 SECONDS (22.8-39.4)
[2018-09-03 07:22] LABS: ALBUMIN 2.1 g/dL (3.4-5.0); ANION GAP 9.4 mmol/L (8-16); BILIRUBIN - TOTAL 0.43 mg/dL (0.2-1.3); CARBON DIOXIDE 32.2 mmol/L (21.0-32.0); CREATININE - SERUM 3.2 mg/dL (0.6-1.3)
[2018-09-03 07:29] LABS: POTASSIUM - SERUM 3.6 mmol/L (3.5-5.1)
[2018-09-03 07:35] VITALS: BP 114/66
--- NOTE | 2018-09-03 08:37 | MORECARE ---
CASE MANAGEMENT DISCHARGE SUMMARY PATIENT: JOS ESPINAL UNIT: [id number] ADM DATE: 08/17/18 AGE: 87 : 32 SEX: M ROOM/BED: D.2106 AUTHOR: ABELINO,CORIE PHYSICIAN: REFERRING PHYSICIAN: LUCIANA ANTON DO DATE OF SERVICE: 09/03/18 Discharge Plan Patient Name: JOS ESPINAL Facility: [facility]:[place] : 1930 Planned Disposition: Inpatient Rehab Anticipated Discharge Date: Discharge Date: Expected LOS: Initial Reviewer: [id number] Initial Review Date: 08/19/2018 Generated: 09/03/18 9:37 am Comments DCP- Discharge Planning Updated by [id number]: Cedric Brennan on 09/03/18 7:[address] Patient Name: JOS ESPINAL Encounter No: [id number] : 1930 Primary Insurance: MEDICARE A & B Anticipated DC Date: Planned Disposition: Inpatient Rehab External Planned Provider: [facility] DCP follow-up note: CM MET WITH PT IN ROOM TO DISCUSS DISCHARGE PLAN. PT REPORTS HE BELIEVES THAT HE NEEDS REHAB . PT STATES HE HAS TALKED TO THE "GIRL FROM REHAB" ALREADY AND WANTS REHAB AT [facility] BEFORE GOING HOME. CM NOTIFIED PT THAT THE ORDER HAS BEEN PLACED FOR REHAB PRESCREEN AND THEY ARE FOLLOWING HIS MEDICAL TREATMENT AND PLAN TO TAKE PT LONG THEY CAN MEET PT'S MEDICAL NEEDS AT DISCHARGE. PT DENIES NEEDS AT THIS TIME. PT PLANS TO DISCHARGE TO INPATIENT REHAB AT [facility]. CM WAITING MEDICAL STABILITY AND ADMISSION DETERMINATION FROM [facility]. JOSEP Salcido DCP- Discharge Planning Updated by [id number]: Cedric Brennan on 08/27/18 2:[address] Patient Name: JOS ESPINAL Encounter No: [id number] : 1930 Primary Insurance: MEDICARE A & B Anticipated DC Date: Planned Disposition: Home with Home Health External Planned Provider: [facility] DCP follow-up note: CM RECEIVED ORDER FOR INPATIENT REHAB PRESCREEN, SPOKE TO PT IN ROOM. PT WILL AGREE TO TALK TO REHAB, BUT PT STATES HE WANTS TO GO HOME AND HAS HOME HEALTH AT HOME. PT DOES NOT WANT TO STAY FOR REHAB. IMPORTANT MESSAGE FROM MEDICARE PROVIDED AND EXPLAINED. EZEKIEL OF INPATIENT REHAB NOTIFIED. PT REFUSED INPATIENT REHAB, REPORTS HE WANTS TO GO HOME WITH [facility]. FOR DISCHARGE, NOTIFY [facility], , FAX DISCHARGE INFORMATION TO [facility] AT [phone]. Cedric Brennan, CASE MANAGEMENT DCP- Discharge Planning Updated by [id number]: Marylou Prabhakar on 08/19/18 2:[address] Patient Name: JOS ESPINAL Admission Status: ER Accout number: [id number] Admission Date: 08-17-2018 : 1930 Admission Diagnosis: Attending: LUCIANA ANTON Current LOS: 2 Anticipated DC Date: Planned Disposition: Home with Home Health Primary Insurance: MEDICARE A & B Discharge Planning Comments: CM met with patient to complete initial dc planning assessment. CM educated patient on the CM role and verbal consent given by patient to complete assessment. Patient lives at home with his disabled step son. At discharge patient plans to return and feels this is a safe discharge. CM discussed availability of home health, rehab services, and medical equipment. Patient states he has home health with [facility] and would like to resume this at discharge, VIVI form signed for [facility]. States CM will continue to follow and will assist as needed with dc plans/needs. Licensed Marine Engineer: Marylou Radford DCPIA - Discharge Planning Initial Assessment Updated by [id number]: Marylou Radford on 08/19/18 3:17 pm * Is the patient Alert and Oriented? Yes * PCP Dr. Bella in [facility] clinic * Pharmacy [facility] [place] * Preadmission Environment Home with Family * ADLs Independent * Equipment None * List name and contact numbers for known caregivers / representatives who currently or will assist patient after discharge: Scott Yvette - friend - [phone] Светлана Pierre DTR - [phone] ([place]) * Verbal permission to speak to the caregivers and representatives has been obtained from the patient. Yes * Community resources currently utilized Home Health * Please name any agencies selected above. [facility] * Additional services required to return to the preadmission environment? No * Can the patient safely return to the preadmission environment? Yes * Has this patient been hospitalized within the prior 30 days at any hospital? No Coverage Notice Reviewer: [id number] - Marylou Radford Notice Issued Date-Time: 08/19/2018 15:17 Notice Type: Patient Choice Letter Notice Delivered To: Patient Relationship to Patient: Self Hog Raiser Name: Delivery Method: HAND - Hand Delivered Lluvia Days: Prior Verbal Notification: Recipient Understood Notice: Yes Recipient Signature: Yes Med Rec Note Co-signed by Attending: Coverage Notice Comment: [facility] for [facility] Reviewer: [id number] - Cedric Brennan Notice Issued Date-Time: 08/27/2018 14:55 Notice Type: IM Discharge Notice Notice Delivered To: Patient Relationship to Patient: Hog Raiser Name: Delivery Method: HAND - Hand Delivered Lluvia Days: Prior Verbal Notification: Recipient Understood Notice: Yes Recipient Signature: Yes Med Rec Note Co-signed by Attending: Coverage Notice Comment: Last DP export: 08/31/18 6:54 a Patient Name: JOS ESPINAL Page [phone] at 0837 All edits/amendments must be made on the electronic document DICTATION DATE: 09/03/18835 INFORMATICS DEVELOPER: JENNY 09/03/18835 RPT#: [id number] DC DATE: STATUS: ADM IN [facility] [address] [place] [address] END OF REPORT
--- NOTE | 2018-09-03 09:30 | NUR ---
ASSESMENT COMPLETE. PATIENT SITTING IN BED SIDE CHAIR. LINENS CHANGED. PATIENT DENEIS ANY NEEDS OR PAIN. WILL CONTINUE TO MONITOR. CALL LIGHT IN REACH.
--- NOTE | 2018-09-03 11:30 | NUR ---
FAMILY AT BEDSIDE. PATIENT ASSISTED BACK TO BED. PATIENT SON STATES THAT HE WANTS PATIENT TO NOT SIT IN BEDSIDE CHAIR DUE TO SWELLING OF FEET AND SON TOOK BEDSIDE CHAIR OUT OF ROOM. PATIENT GOWN CHANGED AND PATIENT SON BROUGHT UNDERWEAR FROM HOME. WILL CONTINUE TO MONITOR.
--- NOTE | 2018-09-03 13:50 | NUR ---
PATIENT IS STABLE AND VSS. SON AT BEDSIDE. PHONE CALL RECIEVED FROM SURGERY TEAM TO PREOP PATIENT . PATIENT PREOP PER MAR ORDERS. PATIENT TO SURGERY VIA HOSPITAL BED AND HOSPITAL PERSONNEL.
--- NOTE | 2018-09-03 16:18 | NUR ---
PATIENT RETURNED FROM SURGERY VIA HOSPITAL BED AND HOSPITAL PERSONNEL. PATIENT IS SLEEPY BUT AROUSES TO VOICE EASILY. VSS. ATTEMPTED TO CLEAN PATIENT, CHANGE GOWN AND REAPPLY HEART MONITOR AND PATIENT ADAMANTLY REFUSED. WILL CONTINUE TO MONITOR. SR UP X 2 BED IN LOW POSITION AND CALL LIGHT IN REACH.
--- NOTE | 2018-09-03 18:44 | NUR ---
DIALYSIS COORDINATOR: ALFREDA POLLOCK MWF @ 6:00. ANTONIO DAVID.
[2018-09-03 20:00] VITALS: BP 104/59
--- NOTE | 2018-09-03 20:14 | NUR ---
ROUNDS COMPLETED. VSS. PT ALERT WITH OCCASIONAL CONFUSION. PT DENIES ANY NEEDS AT THIS TIME. STATES HE ONLY WANTS TO GET SOME SLEEP. WILL CPOC. CL IN REACH, BED IN LOW, SR UP X2.
[2018-09-04 04:00] VITALS: BP 105/68
[2018-09-04 04:48] LABS: BASOPHILS 0.2 % (0-2); EOSINOPHILS 0.2 % (0-7); HEMATOCRIT 28.7 % (42.0-54.0); HEMOGLOBIN 8.6 g/dL (13.5-17.5); IMMATURE GRANULOCYTES 0.8 % (0-5); LYMPHOCYTES 8.2 % (15-50); MCH 25.8 pg (26.0-34.0); MCV 86.2 fL (80.0-100.0); MONOCYTES 9.7 % (2-11); NEUTROPHILS 80.9 % (40-80); PLATELET COUNT 452 10x3/uL (130-400); RBC 3.33 10x6/uL (4.20-6.10); RDW 18.9 % (11.5-14.5); WBC 9.8 10x3/uL (4.8-10.8)
[2018-09-04 05:10] LABS: ALBUMIN 1.9 g/dL (3.4-5.0); ANION GAP 9.3 mmol/L (8-16); BILIRUBIN - TOTAL 0.46 mg/dL (0.2-1.3); CALCIUM 7.8 mg/dL (8.5-10.1); CARBON DIOXIDE 30.5 mmol/L (21.0-32.0); CREATININE - SERUM 3.7 mg/dL (0.6-1.3); POTASSIUM - SERUM 3.8 mmol/L (3.5-5.1); PROTEIN - SERUM 6.4 g/dL (6.4-8.2)
--- NOTE | 2018-09-04 07:30 | NUR ---
PT ASLEEP, DID NOT WAKE AI ENTERED, DID NOT FURTHER DISTURB AT THIS TIME. CL IN REACH. SRX2.
[2018-09-04 07:44] VITALS: BP 111/55
[2018-09-04 10:27] LABS: INR 1.38 (0.85-1.17); PROTIME 16.4 SECONDS (11.6-15.0)
--- NOTE | 2018-09-04 11:03 | NUR ---
PT STATES THAT HE WILL REFUSE ALL FURTHER MEDICATION UNTIL A TELLS HIM IT'S OK TO TAKE THEM.
[2018-09-04 11:18] VITALS: BP 115/55
--- NOTE | 2018-09-04 11:57 | NUR ---
Reviewed patient's chart again for the ARU. He is confused, disoriented and aggitated. He has not been participating in therapy per the notes. Recommend a lower level of care such as a SNF. Emily Monae RN Clinical Liaison, Rehab
--- NOTE | 2018-09-04 13:12 | NUR ---
PT TAKEN TO DIALYSIS VIA WHEELCAHIR. STATES HE'S GOING TO TODAY. TOLD HIM HE IS NOT, PT IS CONSTANTLY COMPLAINING ABOUT EVERYTHING WE TRY TO DO. REASURING PT WITH EDUCATION CONSTANTLY.
--- NOTE | 2018-09-04 19:27 | NUR ---
PATIENT LAYING IN BED. EYES CLOSED, CHEST RISING AND FALLING. NO DISTRESS NOTED.
[2018-09-04 21:01] VITALS: BP 111/66
--- NOTE | 2018-09-04 22:35 | NUR ---
PATIENT LAYING IN BED. PATIENT IS CONFUSED ABOUT WHY HE IS HERE AND WHERE HE IS. PATIENT WAS REOIENTATED TO UNIT AND DIAGNOSIS. PATIENT HAS NO COMPLAINTS AT THIS TIME.
[2018-09-05] VITALS (7 sets, daily range): BP systolic 103–128; BP diastolic 53–67
--- NOTE | 2018-09-05 02:58 | NUR ---
I have reviewed this patient and I concur with the Shift Assessment completed by the Licensed Practical Nurse today this shift.
[2018-09-05 04:55] LABS: BASOPHILS 0.1 % (0-2); EOSINOPHILS 0.1 % (0-7); HEMATOCRIT 29.4 % (42.0-54.0); HEMOGLOBIN 9.1 g/dL (13.5-17.5); IMMATURE GRANULOCYTES 1.1 % (0-5); LYMPHOCYTES 7.6 % (15-50); MCH 26.5 pg (26.0-34.0); MCV 85.7 fL (80.0-100.0); MEAN PLATELET VOLUME 8.9 fL (7.4-10.4); MONOCYTES 7.4 % (2-11); NEUTROPHILS 83.7 % (40-80); PLATELET COUNT 423 10x3/uL (130-400); RBC 3.43 10x6/uL (4.20-6.10); RDW 19.4 % (11.5-14.5); WBC 9.8 10x3/uL (4.8-10.8)
[2018-09-05 05:00] LABS: INR 1.38 (0.85-1.17); PROTIME 16.4 SECONDS (11.6-15.0)
[2018-09-05 05:34] LABS: ANION GAP 12.5 mmol/L (8-16); BILIRUBIN - TOTAL 0.48 mg/dL (0.2-1.3); CALCIUM 7.8 mg/dL (8.5-10.1); CARBON DIOXIDE 29.1 mmol/L (21.0-32.0); CREATININE - SERUM 2.8 mg/dL (0.6-1.3); POTASSIUM - SERUM 3.6 mmol/L (3.5-5.1); PROTEIN - SERUM 6.8 g/dL (6.4-8.2)
--- NOTE | 2018-09-05 07:15 | NUR ---
PT ASLEEP, DID NOT WAKE I ENETERED, DID NOT FURTHER DISTURB AT THIS TIME. CL IN REACH, SRX2.
--- NOTE | 2018-09-05 15:02 | NUR ---
PT FAMILY FRIEND CAME IN. HE HELPED CONVINCED THE PT TO HAVE A BATH, RELAX, AND ACCEPT GOING TO REHAB TODAY. THE PT IS MORE PLESANT NOW. REQUESTED WE TAKE HIM FOR A WHELCHAIR RIDE FOR A BIT LATER. WILL LEAVE THE DOOR OPEN ADN BLINDS OPEN TO REDUCE PTS FEELING OF ISOLATION. PT FAMILY FRIEND STATES THAT HE'S AVALIABLE SHOULD HE BECOME AGITATED OR NEED ANYMORE CONVINCING OR AID. FRIEND STATES THAT THE PT VERY STRONGLY DISLIKES HIS STEP DAUGHTER (IS PATRICIO) AND WILL NOT COOPERATE UNLESS WITH ANYTHING SHE SUGGESTS.
--- NOTE | 2018-09-05 17:43 | NUR ---
20 GAUGE IV PLACED TO RIGHT WRIST X 1 STICK. TOLERATED IV PLACEMENT WELL. GOOD BLOOD RETURN, EASY FLUSH. TAPED, DATED, AND SECURED. NO DISTRESS.
--- NOTE | 2018-09-05 18:06 | NUR ---
I have reviewed this patient and I concur with the Shift Assessment completed by the Licensed Practical Nurse today this shift.
--- NOTE | 2018-09-05 18:13 | MORECARE ---
CASE MANAGEMENT DISCHARGE SUMMARY PATIENT: JOS ESPINAL UNIT: [id number] ADM DATE: 08/17/18 AGE: 87 : 32 SEX: M ROOM/BED: D.2106 AUTHOR: ABELINO,CORIE PHYSICIAN: REFERRING PHYSICIAN: LUCIANA ANTON DO DATE OF SERVICE: 09/05/18 Discharge Plan Patient Name: [facility]OS ESPINAL [facility] [facility] 1930 Planned Disposition: Inpatient Rehab Anticipated Discharge Date: Discharge Date: Expected LOS: Initial Reviewer: [id number] Initial Review Date: 08/19/2018 Generated: 09/05/18 7:13 pm Comments DCP- Discharge Planning Updated by [email or web address]: Jo Carr on 09/05/18 5:[address] LATE ENTRY CM SPOKE WITH STEFANI FROM [facility] REGARDING ADMISSION. SHE STATES SHERICE HAD RE-EVALUATED THE PATIENT FRIDAY. HE WAS DECLINED. CM REQUEST RE-EVAL ON FRIDAY. PATIENT'S FRIEND , ALBERTA GODDARD, VISITED AND SPOKE WITH THE PATIENT. HIS CONTACT PHONE NUMBER IS [phone]. HE ENCOURAGED THE PATIENT TO GO TO REHAB. HE ALSO ENCOURAGED HIM TO PARTICIPATE WITH PHYSICAL THERAPY. CM ASK IF PATIENT IS A . ALBERTA STATES THAT HE IS. THE PATIENT HAS HAD SOME ISSUES REGARDING ISOLATION AND LYING BACK FLAT. HE DOES SUFFER FROM PTSD. PATIENT DOES NOT LIKE BEING ISOLATED OR IN DARK ROOMS. CM ASK STAFF TO HAVE LIGHTS ON DURING THE DAY. HIS FRIEND TOOK THE PATIENT IN A WHEELCHAIR OUT OF THE ROOM. THE PATIENT WAS VERY HAPPY. HE HAS BEEN COOPERATIVE. ALBERTA HAD SPOKEN TO THE POA, STEP DAUGHTER, GLORIA GARCIA, AT [phone]. CM TO FOLLOW TO ASSIST W/ DISCHARGE PLANNING. DCP- Discharge Planning Updated by [id number]: Cedric Brennan on 09/03/18 7:[address] Patient Name: JOS ESPINAL Encounter No: [id number] : 1930 Primary Insurance: MEDICARE A & B Anticipated DC Date: Planned Disposition: Inpatient Rehab External Planned Provider: [facility] INPATIENT REHAB DCP follow-up note: CM MET WITH PT IN ROOM TO DISCUSS DISCHARGE PLAN. PT REPORTS HE BELIEVES THAT HE NEEDS REHAB . PT STATES HE HAS TALKED TO THE "GIRL FROM REHAB" ALREADY AND WANTS REHAB AT [place] BEFORE GOING HOME. CM NOTIFIED PT THAT THE ORDER HAS BEEN PLACED FOR REHAB PRESCREEN AND THEY ARE FOLLOWING HIS MEDICAL TREATMENT AND PLAN TO TAKE PT LONG THEY CAN MEET PT'S MEDICAL NEEDS AT DISCHARGE. PT DENIES NEEDS AT THIS TIME. PT PLANS TO DISCHARGE TO INPATIENT REHAB AT [place]. CM WAITING MEDICAL STABILITY AND ADMISSION DETERMINATION FROM [place] INPATIENT REHAB. Cedric Brennan, CASE MANAGEMENT DCP- Discharge Planning Updated by [id number]: Cedric Brennan on 08/27/18 2:[address] Patient Name: JOS ESPINAL Encounter No: [id number] : 1930 Primary Insurance: MEDICARE A & B Anticipated DC Date: Planned Disposition: Home with Home Health External Planned Provider: [employer] [facility] DCP follow-up note: CM RECEIVED ORDER FOR INPATIENT REHAB PRESCREEN, SPOKE TO PT IN ROOM. PT WILL AGREE TO TALK TO REHAB, BUT PT STATES HE WANTS TO GO HOME AND HAS HOME HEALTH AT HOME. PT DOES NOT WANT TO STAY FOR REHAB. IMPORTANT MESSAGE FROM MEDICARE PROVIDED AND EXPLAINED. EZEKIEL OF INPATIENT REHAB NOTIFIED. PT REFUSED INPATIENT REHAB, REPORTS HE WANTS TO GO HOME WITH [employer]. FOR DISCHARGE, NOTIFY [employer] [facility], , FAX DISCHARGE INFORMATION TO [employer] AT [phone]. Cedric Brennan CASE MANAGEMENT DCP- Discharge Planning Updated by [id number]: Marylou Radford on 08/19/18 2:[address] Patient Name: JOS ESPINAL Admission Status: ER Accout number: [id number] Admission Date: 08-17-2018 : 1930 Admission Diagnosis: Attending: LUCIANA ANTON Current LOS: 2 Anticipated DC Date: Planned Disposition: Home with Home Health Primary Insurance: MEDICARE A & B Discharge Planning Comments: CM met with patient to complete initial dc planning assessment. CM educated patient on the CM role and verbal consent given by patient to complete assessment. Patient lives at home with his disabled step son. At discharge patient plans to return and feels this is a safe discharge. CM discussed availability of home health, rehab services, and medical equipment. Patient states he has home health with [facility] and would like to resume this at discharge, VIVI form signed for [facility]. States will continue to follow and will assist as needed with dc plans/needs. Hot Roll Laminator: Marylou Radford DCPIA - Discharge Planning Initial Assessment Updated by [id number]: Marylou Radford on 08/19/18 3:17 pm * Is the patient Alert and Oriented? Yes * PCP Dr[facility] Bella in [facility] clinic [facility] * Preadmission Environment Home with Family * ADLs Independent * Equipment None * List name and contact numbers for known caregivers / representatives who currently or will assist patient after discharge: Scott Crawford [facility] - [phone] Gloria Pierre [facility] - [phone] ([place]) * Verbal permission to speak to the caregivers and representatives has been obtained from the patient. Yes * Community resources currently utilized Home Health * Please name any agencies selected above. [facility] * Additional services required to return to the preadmission environment? No * Can the patient safely return to the preadmission environment? Yes * Has this patient been hospitalized within the prior 30 days at any hospital? No Coverage Notice Reviewer: [id number] - Marylou Acostajaron Notice Issued Date-Time: 08/19/2018 15:17 Notice Type: Patient Choice Letter Notice Delivered To: Patient Relationship to Patient: Self Typing Section Chief Name: Delivery Method: HAND - Hand Delivered Lluvia Days: Prior Verbal Notification: Recipient Understood Notice: Yes Recipient Signature: Yes Med Rec Note Co-signed by Attending: Coverage Notice Comment: VIVI for [facility] Reviewer: [id number] - Cedric Brennan Notice Issued Date-Time: 08/27/2018 14:55 Notice Type: IM Discharge Notice Notice Delivered To: Patient Relationship to Patient: Typing Section Chief Name: Delivery Method: HAND - Hand Delivered Lluvia Days: Prior Verbal Notification: Recipient Understood Notice: Yes Recipient Signature: Yes Med Rec Note Co-signed by Attending: Coverage Notice Comment: Last DP export: 09/03/18 7:37 a Patient Name: JOS ESPINAL Page 30433 at 1813 All edits/amendments must be made on the electronic document DICTATION DATE: 09/05/181811 LIFE SKILLS COORDINATOR VOLUNTEER: JENNY 09/05/181811 RPT#: [id number] DC DATE: STATUS: ADM IN [facility] [address] [facility] [place] [address] END OF REPORT
--- NOTE | 2018-09-05 20:20 | NUR ---
SITTING ON SIDE OF BED. ADMIN SCHED PO MED WITH SIPS OF WATER AND NASAL SALINE SPRAY. ASSISTED BACK IN BED WITH LEGS ELEVATED. PLACED BEDSIDE TRAY WITH PERSONAL ITEMS AND CALL LIGHT IN REACH.
--- NOTE | 2018-09-06 02:37 | NUR ---
RESTING WITH EYES CLOSED. RR 16 EVEN U/L ON ROOM AIR. NO S/S OF DISCOMFORT. HAS CL IN REACH.
[2018-09-06 05:45] LABS: BASOPHILS 0.1 % (0-2); EOSINOPHILS 0.3 % (0-7); HEMATOCRIT 28.7 % (42.0-54.0); HEMOGLOBIN 8.7 g/dL (13.5-17.5); IMMATURE GRANULOCYTES 1.1 % (0-5); LYMPHOCYTES 8.7 % (15-50); MCH 25.9 pg (26.0-34.0); MCHC 30.3 g/dL (31.0-37.0); MCV 85.4 fL (80.0-100.0); MEAN PLATELET VOLUME 8.8 fL (7.4-10.4); MONOCYTES 6.8 % (2-11); PLATELET COUNT 372 10x3/uL (130-400); RBC 3.36 10x6/uL (4.20-6.10); RDW 19.5 % (11.5-14.5); WBC 9.1 10x3/uL (4.8-10.8)
[2018-09-06 05:51] VITALS: BP 120/60
[2018-09-06 05:55] LABS: INR 1.36 (0.85-1.17); PROTIME 16.3 SECONDS (11.6-15.0)
[2018-09-06 06:04] LABS: ALBUMIN 1.8 g/dL (3.4-5.0); ANION GAP 11.5 mmol/L (8-16); BILIRUBIN - TOTAL 0.4 mg/dL (0.2-1.3); CALCIUM 7.9 mg/dL (8.5-10.1); CARBON DIOXIDE 26.9 mmol/L (21.0-32.0); CREATININE - SERUM 3.5 mg/dL (0.6-1.3); POTASSIUM - SERUM 3.4 mmol/L (3.5-5.1); PROTEIN - SERUM 6.5 g/dL (6.4-8.2)
--- NOTE | 2018-09-06 07:34 | NUR ---
PT ASLEEP, DID NOT WAKE I ENTERED. DID NOT FURTHER DISTURB AT THIS TIME. CL IN REACH SRX2
[2018-09-06 09:54] VITALS: BP 106/67
--- NOTE | 2018-09-06 10:23 | NUR ---
PT AWAKE AND ORIENTED X4. PT IS IN A MUCH BETTER MOOD, PARTICIPATING WITH [facility] TODAY AND EVEN APPOLOGIZING FOR HIS BEHAVIOR YESTERDAY. PT HAS TAKEN ALL MEDICATIONS WITHOUT ARGUING, DIET TO BE CHANGED TO REGULAR RENAL PER RENAL. CL IN REACH, SRX2
[2018-09-06 12:46] VITALS: BP 107/68
--- NOTE | 2018-09-06 13:36 | NUR ---
I have reviewed this patient and I concur with the Shift Assessment completed by the Licensed Practical Nurse today this shift.
--- NOTE | 2018-09-06 15:01 | NUR ---
took pt OUTSIDE FOR FRESH AIR. SAT OUT FOR ROUGHLY 20 MINUTES. PT IS HAPYY, NAPPING NOW. NO COMPLAINTS OR CONCERNS. CL IN REACH. SRX2.
[2018-09-06 18:31] VITALS: BP 111/59
--- NOTE | 2018-09-06 18:40 | NUR ---
PT LYING IN BED SLEEPING. NO COMPLAINTS/CONVERNS ALL DAY. CL IN REACH, SRX2. VERY PLESANT. A/OX4 ALL DAY
--- NOTE | 2018-09-06 19:01 | NUR ---
REYNALDO (FRIEND/CAREGIVER). [phone]
--- NOTE | 2018-09-06 19:20 | NUR ---
ALERT/AWAKE WATCHING TV. DENIES ANY NEEDS OR DISCOMFORTS. SHIFT ASSESSMENTS STARTED PER [facility]G FLOWCHART. HAS BEDSIDE TABLE WITH PERSONAL ITEMS AND CALL LIGHT IN REACH.
[2018-09-06 20:07] VITALS: BP 113/67
--- NOTE | 2018-09-06 20:20 | NUR ---
ADMIN SCHED MED. REQUESTED [employer] TO GO WITH HIS ROMEL. PLACED PHONE IN REACH BECAUSE HIS DAUGHTER PHONED THAT SHE WILL BE CALLING HIM.
[2018-09-07 00:02] VITALS: BP 114/60
--- NOTE | 2018-09-07 02:00 | NUR ---
RESTING WITH EYES CLOSED. RR 18 EVEN U/L ON ROOM AIR. NO SIGNS OR SYMPTOMS OF DISCOMFORT. CALL LIGHT IS IN REACH.
[2018-09-07 04:39] LABS: HEMATOCRIT 28.6 % (42.0-54.0); HEMOGLOBIN 8.8 g/dL (13.5-17.5); LYMPHOCYTES 9.9 % (15-50); MCH 26.5 pg (26.0-34.0); MCHC 30.8 g/dL (31.0-37.0); MCV 86.1 fL (80.0-100.0); MEAN PLATELET VOLUME 8.3 fL (7.4-10.4); NEUTROPHILS 79.8 % (40-80); PLATELET COUNT 352 10x3/uL (130-400); RBC 3.32 10x6/uL (4.20-6.10); RDW 19.7 % (11.5-14.5); WBC 8.2 10x3/uL (4.8-10.8)
[2018-09-07 04:41] LABS: INR 1.41 (0.85-1.17); PROTIME 16.7 SECONDS (11.6-15.0)
[2018-09-07 04:56] LABS: ALBUMIN 1.7 g/dL (3.4-5.0); ANION GAP 9.7 mmol/L (8-16); BILIRUBIN - TOTAL 0.37 mg/dL (0.2-1.3); CALCIUM 7.7 mg/dL (8.5-10.1); CARBON DIOXIDE 28.8 mmol/L (21.0-32.0); CREATININE - SERUM 3.8 mg/dL (0.6-1.3); POTASSIUM - SERUM 3.5 mmol/L (3.5-5.1); PROTEIN - SERUM 6.4 g/dL (6.4-8.2)
--- NOTE | 2018-09-07 05:35 | NUR ---
REQUESTED [facility]. ADMIN SCHED PO MEDS. NO OTHER NEEDS VOICED.
[2018-09-07 06:01] VITALS: BP 110/64
--- NOTE | 2018-09-07 07:27 | NUR ---
ROUNDING DONE WITH PATIENT SITTING UP IN BED WITH NO NEEDS VOICED. GLASSES ON. ON HEART MONITOR SHOWING CAF, HR 92. ON 2L PER NC. RIGHT FA PIV SEEN WITH SALINE LOCK. RIGHT AVF WITH NEGETIVE BRUIT AND THRILL. RIGHT CHEST HEMISPLIT SEEN WITH C/D/I DRESSING. WILL MONITOR.L
[2018-09-07 07:48] VITALS: BP 115/65
--- NOTE | 2018-09-07 08:41 | NUR ---
UP WITH THERAPHY IN HALLWAY WITH ROLLING WALKER, TO CHAIR PAST THIS.
--- NOTE | 2018-09-07 09:20 | NUR ---
BED LINENS CHANGED.
--- NOTE | 2018-09-07 10:17 | NUR ---
BACK TO BED.
[2018-09-07 11:20] VITALS: BP 119/67
--- NOTE | 2018-09-07 11:26 | MORECARE ---
CASE MANAGEMENT DISCHARGE SUMMARY PATIENT: JOS ESPINAL UNIT: [id number] ADM DATE: 08/17/18 AGE: 87 : 32 SEX: M ROOM/BED: D.2106 AUTHOR: ABELINO,CORIE PHYSICIAN: REFERRING PHYSICIAN: LUCIANA ANTON DO DATE OF SERVICE: 09/07/18 Discharge Plan Patient Name: JOS ESPINAL [facility] [facility] 1930 Planned Disposition: Inpatient Rehab Anticipated Discharge Date: Discharge Date: Expected LOS: Initial Reviewer: [id number] Initial Review Date: 08/19/2018 Generated: 09/07/18 12:26 pm Comments DCP- Discharge Planning Updated by [id number]: Jo Carr on 09/05/18 5:[address] LATE ENTRY CM SPOKE WITH STEFANI FROM [facility] REGARDING ADMISSION. SHE STATES SHERICE HAD RE-EVALUATED THE PATIENT FRIDAY. HE WAS DECLINED. CM REQUEST RE-EVAL ON FRIDAY. PATIENT'S FRIEND , ALBERTA GODDARD, VISITED AND SPOKE WITH THE PATIENT. HIS CONTACT PHONE NUMBER IS [phone]. HE ENCOURAGED THE PATIENT TO GO TO REHAB. HE ALSO ENCOURAGED HIM TO PARTICIPATE WITH PHYSICAL THERAPY. CM ASK IF PATIENT IS A . ALBERTA STATES THAT HE IS. THE PATIENT HAS HAD SOME ISSUES REGARDING ISOLATION AND LYING BACK FLAT. HE DOES SUFFER FROM PTSD. PATIENT DOES NOT LIKE BEING ISOLATED OR IN DARK ROOMS. CM ASK STAFF TO HAVE LIGHTS ON DURING THE DAY. HIS FRIEND TOOK THE PATIENT IN A WHEELCHAIR OUT OF THE ROOM. THE PATIENT WAS VERY HAPPY. HE HAS BEEN COOPERATIVE. ALBERTA HAD SPOKEN TO THE POA, STEP DAUGHTER, СВЕТЛАНА GARCIA, AT [phone]. CM TO FOLLOW TO ASSIST W/ DISCHARGE PLANNING. DCP- Discharge Planning Updated by [email or web address]: Cedric Brennan on 09/03/18 7:[address] Patient Name: JOS ESPINAL Encounter No: [id number] : 1930 Primary Insurance: MEDICARE A & B Anticipated DC Date: Planned Disposition: Inpatient Rehab External Planned Provider: [facility] INPATIENT REHAB DCP follow-up note: CM MET WITH PT IN ROOM TO DISCUSS DISCHARGE PLAN. PT REPORTS HE BELIEVES THAT HE NEEDS REHAB . PT STATES HE HAS TALKED TO THE "GIRL FROM REHAB" ALREADY AND WANTS REHAB AT [place] BEFORE GOING HOME. CM NOTIFIED PT THAT THE ORDER HAS BEEN PLACED FOR REHAB PRESCREEN AND THEY ARE FOLLOWING HIS MEDICAL TREATMENT AND PLAN TO TAKE PT LONG THEY CAN MEET PT'S MEDICAL NEEDS AT DISCHARGE. PT DENIES NEEDS AT THIS TIME. PT PLANS TO DISCHARGE TO INPATIENT REHAB AT [place]. CM WAITING MEDICAL STABILITY AND ADMISSION DETERMINATION FROM [place] INPATIENT REHAB. Cedric Brennan, CASE MANAGEMENT DCP- Discharge Planning Updated by [id number]: Cedric Brennan on 08/27/18 2:[address] Patient Name: JOS ESPINAL Encounter No: [id number] : 1930 Primary Insurance: MEDICARE A & B Anticipated DC Date: Planned Disposition: Home with Home Health External Planned Provider: [facility] DCP follow-up note: CM RECEIVED ORDER FOR INPATIENT REHAB PRESCREEN, SPOKE TO PT IN ROOM. PT WILL AGREE TO TALK TO REHAB, BUT PT STATES HE WANTS TO GO HOME AND HAS HOME HEALTH AT HOME. PT DOES NOT WANT TO STAY FOR REHAB. IMPORTANT MESSAGE FROM MEDICARE PROVIDED AND EXPLAINED. EZEKIEL OF INPATIENT REHAB NOTIFIED. PT REFUSED INPATIENT REHAB, REPORTS HE WANTS TO GO HOME WITH [employer] [facility] [employer]. FOR DISCHARGE, NOTIFY [facility], , FAX DISCHARGE INFORMATION TO [employer] AT [phone]. Cedric Brennan CASE MANAGEMENT DCP- Discharge Planning Updated by [id number]: Marylou Radford on 08/19/18 2:[address] Patient Name: JOS ESPINAL Admission Status: ER Accout number: [id number] Admission Date: 08-17-2018 : 1930 Admission Diagnosis: Attending: LUCIANA ANTON Current LOS: 2 Anticipated DC Date: Planned Disposition: Home with Home Health Primary Insurance: MEDICARE A & B Discharge Planning Comments: CM met with patient to complete initial dc planning assessment. CM educated patient on the CM role and verbal consent given by patient to complete assessment. Patient lives at home with his disabled step son. At discharge patient plans to return and feels this is a safe discharge. CM discussed availability of home health, rehab services, and medical equipment. Patient states he has home health with [facility] and would like to resume this at discharge, VIVI form signed for [facility]. States will continue to follow and will assist as needed with dc plans/needs. Umbrella Supervisor: Marylou Prabhakar DCPIA - Discharge Planning Initial Assessment Updated by [id number]: Marylou Prabhakar on 08/19/18 3:17 pm * Is the patient Alert and Oriented? Yes * PCP Dr[facility] Bella in [facility] * [facility] * Preadmission Environment Home with Family * ADLs Independent * Equipment None * List name and contact numbers for known caregivers / representatives who currently or will assist patient after discharge: Scott Crawford [facility] - [phone] Светлана Pierre [facility] - [phone] ([place]) * Verbal permission to speak to the caregivers and representatives has been obtained from the patient. Yes * Community resources currently utilized Home Health * Please name any agencies selected above. [facility] * Additional services required to return to the preadmission environment? No * Can the patient safely return to the preadmission environment? Yes * Has this patient been hospitalized within the prior 30 days at any hospital? No External Providers External Provider: [facility] Next Contact Date: Service Request Date: Service Type: Resolution: Reviewer: Comments: Coverage Notice Reviewer: [id number] - Marylou Radford Notice Issued Date-Time: 08/19/2018 15:17 Notice Type: Patient Choice Letter Notice Delivered To: Patient Relationship to Patient: Self Breaker Engineer Name: Delivery Method: HAND - Hand Delivered Lluvia Days: Prior Verbal Notification: Recipient Understood Notice: Yes Recipient Signature: Yes Med Rec Note Co-signed by Attending: Coverage Notice Comment: VIVI for [facility] Reviewer: [id number] - Cedric Brennan Notice Issued Date-Time: 08/27/2018 14:55 Notice Type: IM Discharge Notice Notice Delivered To: Patient Relationship to Patient: Breaker Engineer Name: Delivery Method: HAND - Hand Delivered Lluvia Days: Prior Verbal Notification: Recipient Understood Notice: Yes Recipient Signature: Yes Med Rec Note Co-signed by Attending: Coverage Notice Comment: Reviewer: [id number] Cherie Sherman Notice Issued Date-Time: 09/07/2018 11:20 Notice Type: Patient Choice Letter Notice Delivered To: Patient Relationship to Patient: Breaker Engineer Name: Delivery Method: HAND - Hand Delivered Lluvia Days: Prior Verbal Notification: Recipient Understood Notice: Yes Recipient Signature: Yes Med Rec Note Co-signed by Attending: Coverage Notice Comment: jh chaparro/jeniffer snf Last DP export: 09/05/18 5:13 p Patient Name: JOS ESPINAL Page 35111 at 1126 All edits/amendments must be made on the electronic document DICTATION DATE: 09/07/181125 HEALTH UNIT SUPERVISOR: JENNY 09/07/18 112 RPT#: [id number] DC DATE: STATUS: ADM IN [facility] [address] [place] [address] END OF REPORT
--- NOTE | 2018-09-07 11:34 | MORECARE ---
CASE MANAGEMENT DISCHARGE SUMMARY PATIENT: JOS ESPINAL UNIT: [id number] ADM DATE: 08/17/18 AGE: 87 : 32 SEX: M ROOM/BED: D.2106 AUTHOR: ABELINO,DOC PHYSICIAN: REFERRING PHYSICIAN: LUCIANA ANTON DO DATE OF SERVICE: 09/07/18 Discharge Plan Patient Name: JOS ESPINAL Facility: [facility]:[place] : 1930 Planned Disposition: Inpatient Rehab Anticipated Discharge Date: Discharge Date: Expected LOS: Initial Reviewer: [id number] Initial Review Date: 08/19/2018 Generated: 09/07/18 12:33 pm Comments DCP- Discharge Planning Updated by [email or web address]: Saba Sherman on 09/07/18 10:[address] Patient Name: JOS ESPINAL Admission Status: ER Accout number: [id number] Admission Date: 08-17-2018 : 1930 Admission Diagnosis:SHORTNESS OF BREATH Attending: LUCIANA ANTON Current LOS: 21 Anticipated DC Date: Planned Disposition: Inpatient Rehab Primary Insurance: MEDICARE A & B Discharge Planning Comments: PATIENT CHOICE FORM COMPLETED, PATIENT REQUESTS TO GO TO [facility] OR [facility] FOR SNF. DOCUMENTS FAXED TO [facility], WAITING FOR CALL BACK. CM TO FOLLOW AND ASSIST NEEDED WITH DC PLANNING NEEDS. Printer'S Assistant: Saba Sherman DCP- Discharge Planning Updated by [id number]: Jo Carr on 09/05/18 5:[address] LATE ENTRY CM SPOKE WITH STEFANI FROM [facility] INPATIENT REH[facility] REGARDING ADMISSION. SHE STATES SHERICE HAD RE-EVALUATED THE PATIENT FRIDAY. HE WAS DECLINED. CM REQUEST RE-EVAL ON FRIDAY. PATIENT'S FRIEND , ALBERTA GODDARD, VISITED AND SPOKE WITH THE PATIENT. HIS CONTACT PHONE NUMBER IS [phone]. HE ENCOURAGED THE PATIENT TO GO TO REHAB. HE ALSO ENCOURAGED HIM TO PARTICIPATE WITH PHYSICAL THERAPY. CM ASK IF PATIENT IS A . ALBERTA STATES THAT HE IS. THE PATIENT HAS HAD SOME ISSUES REGARDING ISOLATION AND LYING BACK FLAT. HE DOES SUFFER FROM PTSD. PATIENT DOES NOT LIKE BEING ISOLATED OR IN DARK ROOMS. CM ASK STAFF TO HAVE LIGHTS ON DURING THE DAY. HIS FRIEND TOOK THE PATIENT IN A WHEELCHAIR OUT OF THE ROOM. THE PATIENT WAS VERY HAPPY. HE HAS BEEN COOPERATIVE. ALBERTA HAD SPOKEN TO THE POA, STEP DAUGHTER, СВЕТЛАНА GARCIA, AT [phone]. CM TO FOLLOW TO ASSIST W/ DISCHARGE PLANNING. DCP- Discharge Planning Updated by [id number]: Cedric Brennan on 09/03/18 7:[address] Patient Name: JOS ESPINAL Encounter No: [id number] : 1930 Primary Insurance: MEDICARE A & B Anticipated DC Date: Planned Disposition: Inpatient Rehab External Planned Provider: [facility] INPATIENT REHAB DCP follow-up note: CM MET WITH PT IN ROOM TO DISCUSS DISCHARGE PLAN. PT REPORTS HE BELIEVES THAT HE NEEDS REHAB . PT STATES HE HAS TALKED TO THE "GIRL FROM REHAB" ALREADY AND WANTS REHAB AT [place] BEFORE GOING HOME. CM NOTIFIED PT THAT THE ORDER HAS BEEN PLACED FOR REHAB PRESCREEN AND THEY ARE FOLLOWING HIS MEDICAL TREATMENT AND PLAN TO TAKE PT LONG THEY CAN MEET PT'S MEDICAL NEEDS AT DISCHARGE. PT DENIES NEEDS AT THIS TIME. PT PLANS TO DISCHARGE TO INPATIENT REHAB AT [place]. CM WAITING MEDICAL STABILITY AND ADMISSION DETERMINATION FROM [place] INPATIENT REHAB. Cedric Brennan, CASE MANAGEMENT DCP- Discharge Planning Updated by [id number]: Cedric Brennan on 08/27/18 2:[address] Patient Name: JOS ESPINAL Encounter No: [id number] : 1930 Primary Insurance: MEDICARE A & B Anticipated DC Date: Planned Disposition: Home with Home Health External Planned Provider: [employer] [facility] DCP follow-up note: CM RECEIVED ORDER FOR INPATIENT REHAB PRESCREEN, SPOKE TO PT IN ROOM. PT WILL AGREE TO TALK TO REHAB, BUT PT STATES HE WANTS TO GO HOME AND HAS HOME HEALTH AT HOME. PT DOES NOT WANT TO STAY FOR REHAB. IMPORTANT MESSAGE FROM MEDICARE PROVIDED AND EXPLAINED. EZEKIEL OF INPATIENT REHAB NOTIFIED. PT REFUSED INPATIENT REHAB, REPORTS HE WANTS TO GO HOME WITH [employer] [facility] [employer]. FOR DISCHARGE, NOTIFY [employer] [facility], , FAX DISCHARGE INFORMATION TO [employer] AT [phone]. Cedric Brennan, CASE MANAGEMENT DCP- Discharge Planning Updated by [id number]: Marylou Radford on 08/19/18 2:[address] Patient Name: JOS ESPINAL Admission Status: ER Accout number: [id number] Admission Date: 08-17-2018 : 1930 Admission Diagnosis: Attending: LUCIANA ANTON Current LOS: 2 Anticipated DC Date: Planned Disposition: Home with Home Health Primary Insurance: MEDICARE A & B Discharge Planning Comments: CM met with patient to complete initial dc planning assessment. CM educated patient on the CM role and verbal consent given by patient to complete assessment. Patient lives at home with his disabled step son. At discharge patient plans to return and feels this is a safe discharge. CM discussed availability of home health, rehab services, and medical equipment. Patient states he has home health with [facility] and would like to resume this at discharge, VIVI form signed for [employer] [facility]. States CM will continue to follow and will assist as needed with dc plans/needs. Printer'S Assistant: Marylou Radford DCPIA - Discharge Planning Initial Assessment Updated by [id number]: Marylou Radford on 08/19/18 3:17 pm * Is the patient Alert and Oriented? Yes * PCP Dr[facility] Bella in [facility] * Preadmission Environment Home with Family * ADLs Independent * Equipment None * List name and contact numbers for known caregivers / representatives who currently or will assist patient after discharge: Scott Crawford [facility] - [phone] Светлана Pierre [facility] - [phone] ([place]) * Verbal permission to speak to the caregivers and representatives has been obtained from the patient. Yes * Community resources currently utilized Home Health * Please name any agencies selected above. [facility] * Additional services required to return to the preadmission environment? No * Can the patient safely return to the preadmission environment? Yes * Has this patient been hospitalized within the prior 30 days at any hospital? No Coverage Notice Reviewer: [id number] - Marylou Radford Notice Issued Date-Time: 08/19/2018 15:17 Notice Type: Patient Choice Letter Notice Delivered To: Patient Relationship to Patient: Self Hair Worker Name: Delivery Method: HAND - Hand Delivered Lluvia Days: Prior Verbal Notification: Recipient Understood Notice: Yes Recipient Signature: Yes Med Rec Note Co-signed by Attending: Coverage Notice Comment: VIVI for [employer] [facility] Reviewer: [id number] Cherie Sherman Notice Issued Date-Time: 09/07/2018 11:20 Notice Type: Patient Choice Letter Notice Delivered To: Patient Relationship to Patient: Hair Worker Name: Delivery Method: HAND - Hand Delivered Lluvia Days: Prior Verbal Notification: Recipient Understood Notice: Yes Recipient Signature: Yes Med Rec Note Co-signed by Attending: Coverage Notice Comment: jh chaparro/jeniffer alves Reviewer: [id number] Cherie Brennan Notice Issued Date-Time: 08/27/2018 14:55 Notice Type: IM Discharge Notice Notice Delivered To: Patient Relationship to Patient: Hair Worker Name: Delivery Method: HAND - Hand Delivered Lluvia Days: Prior Verbal Notification: Recipient Understood Notice: Yes Recipient Signature: Yes Med Rec Note Co-signed by Attending: Coverage Notice Comment: Last DP export: 09/07/18 10:26 a Patient Name: JOS ESPINAL Page 27718 at 1134 All edits/amendments must be made on the electronic document DICTATION DATE: 09/07/18 1133 GRAIN BUYER: JENNY 09/07/18 1133 RPT#: [id number] DC DATE: STATUS: ADM IN [facility] [address] [place] [address] END OF REPORT
--- NOTE | 2018-09-07 11:50 | MORECARE ---
CASE MANAGEMENT DISCHARGE SUMMARY PATIENT: JOS ESPINAL UNIT: [id number] ADM DATE: 08/17/18 AGE: 87 : 32 SEX: M ROOM/BED: D.2106 AUTHOR: ABELINO,DOC PHYSICIAN: REFERRING PHYSICIAN: LUCIANA ANTON DO DATE OF SERVICE: 09/07/18 Discharge Plan Patient Name: JOS ESPINAL Facility: [facility]:[place] : 1930 Planned Disposition: Inpatient Rehab Anticipated Discharge Date: Discharge Date: Expected LOS: Initial Reviewer: [id number] Initial Review Date: 08/19/2018 Generated: 09/07/18 12:50 pm Comments DCP- Discharge Planning Updated by [id number]: Saba Sherman on 09/07/18 10:[address] Patient Name: JOS ESPINAL Admission Status: ER Accout number: [id number] Admission Date: 08-17-2018 : 1930 Admission Diagnosis:SHORTNESS OF BREATH Attending: LUCIANA ANTON Current LOS: 21 Anticipated DC Date: Planned Disposition: Inpatient Rehab Primary Insurance: MEDICARE A & B Discharge Planning Comments: PATIENT CHOICE FORM COMPLETED, PATIENT REQUESTS TO GO TO [facility] OR [facility] FOR SNF. DOCUMENTS FAXED TO [facility], WAITING FOR CALL BACK. CM TO FOLLOW AND ASSIST NEEDED WITH DC PLANNING NEEDS. Cupola Melter: Saba Sherman DCP- Discharge Planning Updated by [id number]: Jo Carr on 09/05/18 5:[address] LATE ENTRY CM SPOKE WITH STEFANI FROM [facility] REGARDING ADMISSION. SHE STATES SHERICE HAD RE-EVALUATED THE PATIENT FRIDAY. HE WAS DECLINED. CM REQUEST RE-EVAL ON FRIDAY. PATIENT'S FRIEND , ALBERTA GODDARD, VISITED AND SPOKE WITH THE PATIENT. HIS CONTACT PHONE NUMBER IS [phone]. HE ENCOURAGED THE PATIENT TO GO TO REHAB. HE ALSO ENCOURAGED HIM TO PARTICIPATE WITH PHYSICAL THERAPY. CM ASK IF PATIENT IS A . ALBERTA STATES THAT HE IS. THE PATIENT HAS HAD SOME ISSUES REGARDING ISOLATION AND LYING BACK FLAT. HE DOES SUFFER FROM PTSD. PATIENT DOES NOT LIKE BEING ISOLATED OR IN DARK ROOMS. CM ASK STAFF TO HAVE LIGHTS ON DURING THE DAY. HIS FRIEND TOOK THE PATIENT IN A WHEELCHAIR OUT OF THE ROOM. THE PATIENT WAS VERY HAPPY. HE HAS BEEN COOPERATIVE. ALBERTA HAD SPOKEN TO THE POA, STEP DAUGHTER, СВЕТЛАНА GARCIA, AT [phone]. CM TO FOLLOW TO ASSIST W/ DISCHARGE PLANNING. DCP- Discharge Planning Updated by [id number]: Cedric Brennan on 09/03/18 7:[address] Patient Name: JOS ESPINAL Encounter No: [id number] : 1930 Primary Insurance: MEDICARE A & B Anticipated DC Date: Planned Disposition: Inpatient Rehab External Planned Provider: [facility] DCP follow-up note: CM MET WITH PT IN ROOM TO DISCUSS DISCHARGE PLAN. PT REPORTS HE BELIEVES THAT HE NEEDS REHAB . PT STATES HE HAS TALKED TO THE "GIRL FROM REHAB" ALREADY AND WANTS REHAB AT [place] BEFORE GOING HOME. CM NOTIFIED PT THAT THE ORDER HAS BEEN PLACED FOR REHAB PRESCREEN AND THEY ARE FOLLOWING HIS MEDICAL TREATMENT AND PLAN TO TAKE PT LONG THEY CAN MEET PT'S MEDICAL NEEDS AT DISCHARGE. PT DENIES NEEDS AT THIS TIME. PT PLANS TO DISCHARGE TO INPATIENT REHAB AT [place]. CM WAITING MEDICAL STABILITY AND ADMISSION DETERMINATION FROM [place] INPATIENT [facility]. Cedric Brennan, CASE MANAGEMENT DCP- Discharge Planning Updated by [email or web address]: Cedric Brennan on 08/27/18 2:[address] Patient Name: JOS ESPINAL Encounter No: [id number] : 1930 Primary Insurance: MEDICARE A & B Anticipated DC Date: Planned Disposition: Home with Home Health External Planned Provider: [employer] [facility] DCP follow-up note: CM RECEIVED ORDER FOR INPATIENT REHAB PRESCREEN, SPOKE TO PT IN ROOM. PT WILL AGREE TO TALK TO REHAB, BUT PT STATES HE WANTS TO GO HOME AND HAS HOME HEALTH AT HOME. PT DOES NOT WANT TO STAY FOR REHAB. IMPORTANT MESSAGE FROM MEDICARE PROVIDED AND EXPLAINED. EZEKIEL OF INPATIENT REHAB NOTIFIED. PT REFUSED INPATIENT REHAB, REPORTS HE WANTS TO GO HOME WITH [facility] [employer]. FOR DISCHARGE, NOTIFY [employer] [facility], , FAX DISCHARGE INFORMATION TO [employer] AT [phone]. Cedric Brennan, CASE MANAGEMENT DCP- Discharge Planning Updated by [id number]: Marylou Radford on 08/19/18 2:[address] Patient Name: JOS ESPINAL Admission Status: ER Accout number: [id number] Admission Date: 08-17-2018 : 1930 Admission Diagnosis: Attending: LUCIANA ANTON Current LOS: 2 Anticipated DC Date: Planned Disposition: Home with Home Health Primary Insurance: MEDICARE A & B Discharge Planning Comments: CM met with patient to complete initial dc planning assessment. CM educated patient on the CM role and verbal consent given by patient to complete assessment. Patient lives at home with his disabled step son. At discharge patient plans to return and feels this is a safe discharge. CM discussed availability of home health, rehab services, and medical equipment. Patient states he has home health with [facility] and would like to resume this at discharge, VIVI form signed for [employer] [facility]. States CM will continue to follow and will assist as needed with dc plans/needs. Cupola Melter: Marylou Radford DCPIA - Discharge Planning Initial Assessment Updated by [id number]: Marylou Radford on 08/19/18 3:17 pm * Is the patient Alert and Oriented? Yes * PCP [facility] Bella in [facility] * [facility] * Preadmission Environment Home with Family * ADLs Independent * Equipment None * List name and contact numbers for known caregivers / representatives who currently or will assist patient after discharge: Scott Crawford [facility] - [phone] Светлана Pierre [facility] - [phone] ([place]) * Verbal permission to speak to the caregivers and representatives has been obtained from the patient. Yes * Community resources currently utilized Home Health * Please name any agencies selected above. [facility] * Additional services required to return to the preadmission environment? No * Can the patient safely return to the preadmission environment? Yes * Has this patient been hospitalized within the prior 30 days at any hospital? No Coverage Notice Reviewer: [id number] - Marylou Radford Notice Issued Date-Time: 08/19/2018 15:17 Notice Type: Patient Choice Letter Notice Delivered To: Patient Relationship to Patient: Self Delivery Clerk Name: Delivery Method: HAND - Hand Delivered Lluvia Days: Prior Verbal Notification: Recipient Understood Notice: Yes Recipient Signature: Yes Med Rec Note Co-signed by Attending: Coverage Notice Comment: VIVI for [employer] [facility] Reviewer: [id number] Cherie Sherman Notice Issued Date-Time: 09/07/2018 11:20 Notice Type: Patient Choice Letter Notice Delivered To: Patient Relationship to Patient: Delivery Clerk Name: Delivery Method: HAND - Hand Delivered Lluvia Days: Prior Verbal Notification: Recipient Understood Notice: Yes Recipient Signature: Yes Med Rec Note Co-signed by Attending: Coverage Notice Comment: jh chaparro/jeniffer alves Reviewer: [email or web address] Cherie Brennan Notice Issued Date-Time: 08/27/2018 14:55 Notice Type: IM Discharge Notice Notice Delivered To: Patient Relationship to Patient: Delivery Clerk Name: Delivery Method: HAND - Hand Delivered Lluvia Days: Prior Verbal Notification: Recipient Understood Notice: Yes Recipient Signature: Yes Med Rec Note Co-signed by Attending: Coverage Notice Comment: Last DP export: 09/07/18 10:34 a Patient Name: JOS ESPINAL Page [id number] at 1150 All edits/amendments must be made on the electronic document DICTATION DATE: 09/07/18 1149 JIGMAN: JENNY 09/07/18 1149 RPT#: [id number] DC DATE: STATUS: ADM IN [facility] [address] [place] [address] END OF REPORT
--- NOTE | 2018-09-07 12:29 | NUR ---
Nutrition Follow Up: Pt is on a Renal diet with 25% average po intake Started on Megace Pt reports poor intake because he does not like the food and he would eat better if the food was better. Pt is willing to drink supplement Weight 140lb Recommend to liberalize diet to regular as pt is 87 years old and has malnutrition RD following
--- NOTE | 2018-09-07 12:52 | NUR ---
PAGE INTO SHERICE SCOTT APN PATIENT STATES HE WILL EAT BETTER WITH BETTER FOOD. AWAITING CALL BACK.
--- NOTE | 2018-09-07 12:57 | NUR ---
SHERICE SCOTT APN TO CALL BACK WITH NEW ORDERS.
[2018-09-07 13:34] LABS: MAGNESIUM - SERUM 2.1 mg/dL (1.8-2.4); PHOSPHOROUS 3.8 mg/dL (2.5-4.9)
--- NOTE | 2018-09-07 14:32 | NUR ---
I TRIED TO CALL DIALYSIS DOWNSTAIRS TO SEE WHEN PATIENT CAN COME DOWN. LINE IS BUSY.
[2018-09-07 14:41] VITALS: BP 117/62
--- NOTE | 2018-09-07 15:08 | NUR ---
TO DIALYSIS VIA BED.
--- NOTE | 2018-09-07 16:39 | NUR ---
DAUGHTER GLORIA TO CALL FROM [place]. CORRECT PASSWORD IS GIVEN. I UPDATED HER R/T NEW DIET AND SWALLOW EVAL FROM TODAY, REHAB SCREENING WITH [facility], AND THAT HE WAS IN DIALYSIS AT THIS TIME.
--- NOTE | 2018-09-07 18:32 | NUR ---
RETURNS FROM DIALYSIS. ASSISTED TO CHAIR FOR EVENING SUPPER. CALL LIGHT IS IN USE.
--- NOTE | 2018-09-07 20:20 | NUR ---
ALERT/AWAKE ORIENTED TO NAME/PLACE. RR 18 EVEN U/L ON ROOM AIR. IV IN RT FA INTACT SL. HAS RT CHEST HEMESPLIT FOR DIALYSIS SCHED M/W/F. RT ARM FISTULA DOES NOT WORK. DENIES PAIN. REQUESTED ICE CREAM. HAS BEDSIDE TABLE AND CALL LIGHT IN REACH.
--- NOTE | 2018-09-07 21:30 | NUR ---
VISITORS PRESENT IN ROOM. STATED THEY ARE HIS CAREGIVERS AND KNEW THE PASSWORD "RED". PATIENT SMILING AND TALKING TO THEM. NO NEEDS VOICED.
[2018-09-07 21:48] VITALS: BP 106/55
--- NOTE | 2018-09-07 22:42 | NUR ---
TRANSFERED TO MED SURG RM 2212 VIA BED, ESCORTED BY [employer] MACHINE OPERATOR'S. CALLED [facility] TO GIVE REPORT.
--- NOTE | 2018-09-07 22:50 | NUR ---
RECIEVED TO ROOM VIA BED FROM MED 2, ALERT AND ORIENTIATED, DENIES PAIN, ORIENTIATED TO ROOM CALL LIGHT IN REACH
--- NOTE | 2018-09-07 23:10 | NUR ---
CALLED HIS DAUGHTER GLORIA PALOMO AND LEFT MESSAGE RE: HIS NEW RM NUMBER [id number]. ALSO CALLED HIS CAREGIVER/FRIENDS EITAN/REYNALDO AND GAVE THEM THE NEW RM NUMBER TOO.
[2018-09-08 00:26] VITALS: BP 108/64
--- NOTE | 2018-09-08 01:35 | NUR ---
CALL FROM [employer] MANAGER REPORTED 6 BEAT RUN V TACH, RESTING IN BEWD EYES CLOSED
[2018-09-08 06:05] LABS: BASOPHILS 0.1 % (0-2); EOSINOPHILS 0.4 % (0-7); HEMATOCRIT 28.9 % (42.0-54.0); HEMOGLOBIN 8.7 g/dL (13.5-17.5); IMMATURE GRANULOCYTES 1.6 % (0-5); LYMPHOCYTES 8.7 % (15-50); MCH 25.5 pg (26.0-34.0); MCHC 30.1 g/dL (31.0-37.0); MCV 84.8 fL (80.0-100.0); MEAN PLATELET VOLUME 9.1 fL (7.4-10.4); MONOCYTES 7.8 % (2-11); NEUTROPHILS 81.4 % (40-80); RBC 3.41 10x6/uL (4.20-6.10); RDW 20.1 % (11.5-14.5); WBC 8.9 10x3/uL (4.8-10.8)
[2018-09-08 06:19] LABS: INR 1.6 (0.85-1.17); PROTIME 18.4 SECONDS (11.6-15.0)
[2018-09-08 06:54] LABS: PLATELET COUNT 268 10x3/uL (130-400)
--- NOTE | 2018-09-08 07:25 | NUR ---
PT SITTING UP IN BED. NO ACUTE DISTRESS NOTED. RESP EVEN AND UNLABORED. HEMOSPLIT NOTED TO RIGHT CHEST, INTACT. SALINE LOC TO RIGHT HAND INTACT, SITE WITHOUT REDNESS OR EDEMA. DENIES PAIN AT THIS TIME. DENIES FURTHER NEEDS. CL WITHIN REACH. ENOCOURAGED TO CALL WITH NEEDS. CONTINUE POC
[2018-09-08 07:52] LABS: ALBUMIN 1.8 g/dL (3.4-5.0); ANION GAP 11.4 mmol/L (8-16); BILIRUBIN - TOTAL 0.42 mg/dL (0.2-1.3); CALCIUM 7.5 mg/dL (8.5-10.1); CARBON DIOXIDE 29.1 mmol/L (21.0-32.0); POTASSIUM - SERUM 3.5 mmol/L (3.5-5.1); PROTEIN - SERUM 5.9 g/dL (6.4-8.2)
[2018-09-08 07:57] LABS: CREATININE - SERUM 2.7 mg/dL (0.6-1.3)
[2018-09-08 08:29] VITALS: BP 115/64
--- NOTE | 2018-09-08 11:49 | MORECARE ---
CASE MANAGEMENT DISCHARGE SUMMARY PATIENT: JOS ESPINAL UNIT: [id number] ADM DATE: 08/17/18 AGE: 87 : 32 SEX: M ROOM/BED: D.2212 AUTHOR: ABELINO,DOC PHYSICIAN: REFERRING PHYSICIAN: LUCIANA ANTON DO DATE OF SERVICE: 09/08/18 Discharge Plan Patient Name: JOS ESPINAL Facility: [facility]:[place] : 1930 Planned Disposition: Long-Term Facility Anticipated Discharge Date: Discharge Date: Expected LOS: Initial Reviewer: [id number] Initial Review Date: 08/19/2018 Generated: 09/08/18 12:48 pm Comments DCP- Discharge Planning Updated by [id number]: Saba Sherman on 09/07/18 10:[address] Patient Name: JOS ESPINAL Admission Status: ER Accout number: [id number] Admission Date: 08-17-2018 : 1930 Admission Diagnosis:SHORTNESS OF BREATH Attending: LUCIANA ANTON Current LOS: 21 Anticipated DC Date: Planned Disposition: Inpatient Rehab Primary Insurance: MEDICARE A & B Discharge Planning Comments: PATIENT CHOICE FORM COMPLETED, PATIENT REQUESTS TO GO TO [facility] OR [facility] FOR SNF. DOCUMENTS FAXED TO [facility], WAITING FOR CALL BACK. CM TO FOLLOW AND ASSIST NEEDED WITH DC PLANNING NEEDS. Sludge Filtration Operator: Saba Sherman DCP- Discharge Planning Updated by [email or web address]: Jo Carr on 09/05/18 5:[address] LATE ENTRY CM SPOKE WITH STEFANI FROM [facility] REGARDING ADMISSION. SHE STATES SHERICE HAD RE-EVALUATED THE PATIENT FRIDAY. HE WAS DECLINED. CM REQUEST RE-EVAL ON FRIDAY. PATIENT'S FRIEND , ALBERTA GODDARD, VISITED AND SPOKE WITH THE PATIENT. HIS CONTACT PHONE NUMBER IS [phone]. HE ENCOURAGED THE PATIENT TO GO TO REHAB. HE ALSO ENCOURAGED HIM TO PARTICIPATE WITH PHYSICAL THERAPY. CM ASK IF PATIENT IS A . ALBERTA STATES THAT HE IS. THE PATIENT HAS HAD SOME ISSUES REGARDING ISOLATION AND LYING BACK FLAT. HE DOES SUFFER FROM PTSD. PATIENT DOES NOT LIKE BEING ISOLATED OR IN DARK ROOMS. CM ASK STAFF TO HAVE LIGHTS ON DURING THE DAY. HIS FRIEND TOOK THE PATIENT IN A WHEELCHAIR OUT OF THE ROOM. THE PATIENT WAS VERY HAPPY. HE HAS BEEN COOPERATIVE. ALBERTA HAD SPOKEN TO THE POA, STEP DAUGHTER, СВЕТЛАНА GARCIA, AT [phone]. CM TO FOLLOW TO ASSIST W/ DISCHARGE PLANNING. DCP- Discharge Planning Updated by [id number]: Cedric Brennan on 09/03/18 7:[address] Patient Name: JOS ESPINAL Encounter No: [id number] : 1930 Primary Insurance: MEDICARE A & B Anticipated DC Date: Planned Disposition: Inpatient Rehab External Planned Provider: [facility] INPATIENT REH[facility] DCP follow-up note: CM MET WITH PT IN ROOM TO DISCUSS DISCHARGE PLAN. PT REPORTS HE BELIEVES THAT HE NEEDS REHAB . PT STATES HE HAS TALKED TO THE "GIRL FROM REHAB" ALREADY AND WANTS REHAB AT [place] BEFORE GOING HOME. CM NOTIFIED PT THAT THE ORDER HAS BEEN PLACED FOR REHAB PRESCREEN AND THEY ARE FOLLOWING HIS MEDICAL TREATMENT AND PLAN TO TAKE PT LONG THEY CAN MEET PT'S MEDICAL NEEDS AT DISCHARGE. PT DENIES NEEDS AT THIS TIME. PT PLANS TO DISCHARGE TO INPATIENT REHAB AT [place]. CM WAITING MEDICAL STABILITY AND ADMISSION DETERMINATION FROM [place] INPATIENT RE[facility]. Cedric Brennan, CASE MANAGEMENT DCP- Discharge Planning Updated by [id number]: Cedric Brennan on 08/27/18 2:[address] Patient Name: JOS ESPINAL Encounter No: [id number] : 1930 Primary Insurance: MEDICARE A & B Anticipated DC Date: Planned Disposition: Home with Home Health External Planned Provider: [facility] DCP follow-up note: CM RECEIVED ORDER FOR INPATIENT REHAB PRESCREEN, SPOKE TO PT IN ROOM. PT WILL AGREE TO TALK TO REHAB, BUT PT STATES HE WANTS TO GO HOME AND HAS HOME HEALTH AT HOME. PT DOES NOT WANT TO STAY FOR REHAB. IMPORTANT MESSAGE FROM MEDICARE PROVIDED AND EXPLAINED. EZEKIEL OF INPATIENT REHAB NOTIFIED. PT REFUSED INPATIENT REHAB, REPORTS HE WANTS TO GO HOME WITH [employer] [employer]. FOR DISCHARGE, NOTIFY [facility], , FAX DISCHARGE INFORMATION TO [employer] AT [phone]. Cedric Brennan, CASE MANAGEMENT DCP- Discharge Planning Updated by [id number]: Marylou Radford on 08/19/18 2:[address] Patient Name: JOS ESPINAL Admission Status: ER Accout number: [id number] Admission Date: 08-17-2018 : 1930 Admission Diagnosis: Attending: LUCIANA ANTON Current LOS: 2 Anticipated DC Date: Planned Disposition: Home with Home Health Primary Insurance: MEDICARE A & B Discharge Planning Comments: CM met with patient to complete initial dc planning assessment. CM educated patient on the CM role and verbal consent given by patient to complete assessment. Patient lives at home with his disabled step son. At discharge patient plans to return and feels this is a safe discharge. CM discussed availability of home health, rehab services, and medical equipment. Patient states he has home health with [facility] and would like to resume this at discharge, VIVI form signed for [employer] [facility]. States CM will continue to follow and will assist as needed with dc plans/needs. Sludge Filtration Operator: Marylou Radford DCPIA - Discharge Planning Initial Assessment Updated by [id number]: Marylou Radford on 08/19/18 3:17 pm * Is the patient Alert and Oriented? Yes * PCP Dr. Bella in [facility] * [facility] * Preadmission Environment Home with Family * ADLs Independent * Equipment None * List name and contact numbers for known caregivers / representatives who currently or will assist patient after discharge: Scott Crawford - [place] - [phone] Светлана Pierre [facility] - [phone] ([place]) * Verbal permission to speak to the caregivers and representatives has been obtained from the patient. Yes * Community resources currently utilized Home Health * Please name any agencies selected above. [facility] * Additional services required to return to the preadmission environment? No * Can the patient safely return to the preadmission environment? Yes * Has this patient been hospitalized within the prior 30 days at any hospital? No Coverage Notice Reviewer: [id number] - Marylou Radford Notice Issued Date-Time: 08/19/2018 15:17 Notice Type: Patient Choice Letter Notice Delivered To: Patient Relationship to Patient: Self Bath Solution Maker Name: Delivery Method: HAND - Hand Delivered Lluvia Days: Prior Verbal Notification: Recipient Understood Notice: Yes Recipient Signature: Yes Med Rec Note Co-signed by Attending: Coverage Notice Comment: VIVI for [employer] [facility] Reviewer: [id number] Cherie Brennan Notice Issued Date-Time: 08/27/2018 14:55 Notice Type: IM Discharge Notice Notice Delivered To: Patient Relationship to Patient: Bath Solution Maker Name: Delivery Method: HAND - Hand Delivered Lluvia Days: Prior Verbal Notification: Recipient Understood Notice: Yes Recipient Signature: Yes Med Rec Note Co-signed by Attending: Coverage Notice Comment: Reviewer: [email or web address] Cherie Sherman Notice Issued Date-Time: 09/07/2018 11:20 Notice Type: Patient Choice Letter Notice Delivered To: Patient Relationship to Patient: Bath Solution Maker Name: Delivery Method: HAND - Hand Delivered Lluvia Days: Prior Verbal Notification: Recipient Understood Notice: Yes Recipient Signature: Yes Med Rec Note Co-signed by Attending: Coverage Notice Comment: jh chaparro/jeniffer snf Last DP export: 09/07/18 10:50 a Patient Name: JOS ESPINAL Page 36578 at 1149 All edits/amendments must be made on the electronic document DICTATION DATE: 09/08/18 1148 STONE POLISHER HAND: JENNY 09/08/18 1148 RPT#: [id number] DC DATE: STATUS: ADM IN [facility] [address] [place] [address] END OF REPORT
--- NOTE | 2018-09-08 11:56 | MORECARE ---
CASE MANAGEMENT DISCHARGE SUMMARY PATIENT: JOS ESPINAL UNIT: [id number] ADM DATE: 08/17/18 AGE: 87 : 32 SEX: M ROOM/BED: D.2212 AUTHOR: CORIE ROCA PHYSICIAN: REFERRING PHYSICIAN: LUCIANA ANTON DO DATE OF SERVICE: 09/08/18 Discharge Plan Patient Name: JOS ESPINAL Facility: [facility]:[place] : 1930 Planned Disposition: Fpc Facility Anticipated Discharge Date: Discharge Date: Expected LOS: Initial Reviewer: [id number] Initial Review Date: 08/19/2018 Generated: 09/08/18 12:56 pm Comments DCP- Discharge Planning Updated by [email or web address]: Cedric Brennan on 09/08/18 10:[address] Patient Name: JOS ESPINAL Encounter No: [id number] : 1930 Primary Insurance: MEDICARE A & B Anticipated DC Date: Planned Disposition: Fpc Facility External Planned Provider: [facility], MEDICARE REHAB BED DCP follow-up note: CM RECEIVED CALL FROM DANIEL OF [facility], , WHO INFORMED CM THAT [facility] WILL ACCEPT PT FOR REHAB SERVICES AT DISCHARGE. CM FAXED UPDATE TO [facility] VIA [employer] AT [phone]. CM INFORMED RN ARIS WALKER. FOR DISCHARGE, FAX DISCHARGE INFORMATION TO [facility] AT [phone]. NURSE REPORT TO BE CALLED TO [facility] AT [phone]. [facility] TO ARRANGE VAN TRANSPORT. JOSEP Salcido DCP- Discharge Planning Updated by [id number]: Saba Sherman on 09/07/18 10:[address] Patient Name: JOS ESPINAL Admission Status: ER Accout number: [id number] Admission Date: 08-17-2018 : 1930 Admission Diagnosis:SHORTNESS OF BREATH Attending: LUCIANA ANTON Current LOS: 21 Anticipated DC Date: Planned Disposition: Inpatient Rehab Primary Insurance: MEDICARE A & B Discharge Planning Comments: PATIENT CHOICE FORM COMPLETED, PATIENT REQUESTS TO GO TO [facility] OR [facility] FOR SNF. DOCUMENTS FAXED TO [employer], WAITING FOR CALL BACK. CM TO FOLLOW AND ASSIST NEEDED WITH DC PLANNING NEEDS. Lighter Captain: Saba Sherman DCP- Discharge Planning Updated by [id number]: Jo Carr on 09/05/18 5:[address] LATE ENTRY CM SPOKE WITH STEFANI FROM [facility] REGARDING ADMISSION. SHE STATES SHERICE HAD RE-EVALUATED THE PATIENT FRIDAY. HE WAS DECLINED. CM REQUEST RE-EVAL ON FRIDAY. PATIENT'S FRIEND , ALBERTA GODDARD, VISITED AND SPOKE WITH THE PATIENT. HIS CONTACT PHONE NUMBER IS [phone]. HE ENCOURAGED THE PATIENT TO GO TO REHAB. HE ALSO ENCOURAGED HIM TO PARTICIPATE WITH PHYSICAL THERAPY. CM ASK IF PATIENT IS A . ALBERTA STATES THAT HE IS. THE PATIENT HAS HAD SOME ISSUES REGARDING ISOLATION AND LYING BACK FLAT. HE DOES SUFFER FROM PTSD. PATIENT DOES NOT LIKE BEING ISOLATED OR IN DARK ROOMS. CM ASK STAFF TO HAVE LIGHTS ON DURING THE DAY. HIS FRIEND TOOK THE PATIENT IN A WHEELCHAIR OUT OF THE ROOM. THE PATIENT WAS VERY HAPPY. HE HAS BEEN COOPERATIVE. ALBERTA HAD SPOKEN TO THE POA, STEP DAUGHTER, СВЕТЛАНА GARCIA, AT [phone]. CM TO FOLLOW TO ASSIST W/ DISCHARGE PLANNING. DCP- Discharge Planning Updated by [id number]: Cedric Brennan on 09/03/18 7:[address] Patient Name: JOS ESPINAL Encounter No: [id number] : 1930 Primary Insurance: MEDICARE A & B Anticipated DC Date: Planned Disposition: Inpatient Rehab External Planned Provider: [facility]IENT REH[facility] DCP follow-up note: CM MET WITH PT IN ROOM TO DISCUSS DISCHARGE PLAN. PT REPORTS HE BELIEVES THAT HE NEEDS REHAB . PT STATES HE HAS TALKED TO THE "GIRL FROM REHAB" ALREADY AND WANTS REHAB AT [place] BEFORE GOING HOME. CM NOTIFIED PT THAT THE ORDER HAS BEEN PLACED FOR REHAB PRESCREEN AND THEY ARE FOLLOWING HIS MEDICAL TREATMENT AND PLAN TO TAKE PT LONG THEY CAN MEET PT'S MEDICAL NEEDS AT DISCHARGE. PT DENIES NEEDS AT THIS TIME. PT PLANS TO DISCHARGE TO INPATIENT REHAB AT [place]. CM WAITING MEDICAL STABILITY AND ADMISSION DETERMINATION FROM [place] INPATIENT REHAB. Cedric Brennan, CASE MANAGEMENT DCP- Discharge Planning Updated by [email or web address]: Cedric Brennan on 08/27/18 2:[address] Patient Name: JOS ESPINAL Encounter No: [id number] : 1930 Primary Insurance: MEDICARE A & B Anticipated DC Date: Planned Disposition: Home with Home Health External Planned Provider: [facility] DCP follow-up note: CM RECEIVED ORDER FOR INPATIENT REHAB PRESCREEN, SPOKE TO PT IN ROOM. PT WILL AGREE TO TALK TO REHAB, BUT PT STATES HE WANTS TO GO HOME AND HAS HOME HEALTH AT HOME. PT DOES NOT WANT TO STAY FOR REHAB. IMPORTANT MESSAGE FROM MEDICARE PROVIDED AND EXPLAINED. EZEKIEL OF INPATIENT REHAB NOTIFIED. PT REFUSED INPATIENT REHAB, REPORTS HE WANTS TO GO HOME WITH [facility]. FOR DISCHARGE, NOTIFY [employer] [facility], , FAX DISCHARGE INFORMATION TO [facility] AT [phone]. Cedric Brennan, CASE MANAGEMENT DCP- Discharge Planning Updated by [email or web address]: Marylou Radford on 08/19/18 2:[address] Patient Name: JOS ESPINAL Admission Status: ER Accout number: [id number] Admission Date: 08-17-2018 : 1930 Admission Diagnosis: Attending: LUCIANA ANTON Current LOS: 2 Anticipated DC Date: Planned Disposition: Home with Home Health Primary Insurance: MEDICARE A & B Discharge Planning Comments: CM met with patient to complete initial dc planning assessment. CM educated patient on the CM role and verbal consent given by patient to complete assessment. Patient lives at home with his disabled step son. At discharge patient plans to return and feels this is a safe discharge. CM discussed availability of home health, rehab services, and medical equipment. Patient states he has home health with [facility] and would like to resume this at discharge, VIVI form signed for [facility]. States CM will continue to follow and will assist as needed with dc plans/needs. Lighter Captain: Marylou Radford DCPIA - Discharge Planning Initial Assessment Updated by [email or web address]: Marylou Radford on 08/19/18 3:17 pm * Is the patient Alert and Oriented? Yes * PCP Dr. Bella in [facility] clinic * Pharmacy [place] for [place] * Preadmission Environment Home with Family * ADLs Independent * Equipment None * List name and contact numbers for known caregivers / representatives who currently or will assist patient after discharge: Scott Crawford - [place] - [phone] Светлана Pierre DTR - [phone] ([place]) * Verbal permission to speak to the caregivers and representatives has been obtained from the patient. Yes * Community resources currently utilized Home Health * Please name any agencies selected above. [facility] * Additional services required to return to the preadmission environment? No * Can the patient safely return to the preadmission environment? Yes * Has this patient been hospitalized within the prior 30 days at any hospital? No Coverage Notice Reviewer: [id number] Cherie Radford Notice Issued Date-Time: 08/19/2018 15:17 Notice Type: Patient Choice Letter Notice Delivered To: Patient Relationship to Patient: Self Import Dispatcher Name: Delivery Method: HAND - Hand Delivered Lluvia Days: Prior Verbal Notification: Recipient Understood Notice: Yes Recipient Signature: Yes Med Rec Note Co-signed by Attending: Coverage Notice Comment: [facility] for [facility] Reviewer: [id number] Cherie Sherman Notice Issued Date-Time: 09/07/2018 11:20 Notice Type: Patient Choice Letter Notice Delivered To: Patient Relationship to Patient: Import Dispatcher Name: Delivery Method: HAND - Hand Delivered Lluvia Days: Prior Verbal Notification: Recipient Understood Notice: Yes Recipient Signature: Yes Med Rec Note Co-signed by Attending: Coverage Notice Comment: [facility] chaparro/[facility] Reviewer: [id number] - Cedric Brennan Notice Issued Date-Time: 08/27/2018 14:55 Notice Type: IM Discharge Notice Notice Delivered To: Patient Relationship to Patient: Import Dispatcher Name: Delivery Method: HAND - Hand Delivered Lluvia Days: Prior Verbal Notification: Recipient Understood Notice: Yes Recipient Signature: Yes Med Rec Note Co-signed by Attending: Coverage Notice Comment: Last DP export: 09/07/18 10:50 a Patient Name: JOS ESPINAL Page 13468 at 1156 All edits/amendments must be made on the electronic document DICTATION DATE: 09/08/18 1156 MULTIMEDIA DESIGNER: JENNY 09/08/18 1156 RPT#: [id number] DC DATE: STATUS: ADM IN [facility] [address] [place] [address] END OF REPORT
[2018-09-08 12:30] VITALS: BP 127/61
--- NOTE | 2018-09-08 12:49 | MORECARE ---
CASE MANAGEMENT DISCHARGE SUMMARY PATIENT: JOS ESPINAL UNIT: [id number] ADM DATE: 08/17/18 AGE: 87 : 32 SEX: M ROOM/BED: D.2212 AUTHOR: CORIE ROCA PHYSICIAN: REFERRING PHYSICIAN: LUCIANA ANTON DO DATE OF SERVICE: 09/08/18 Discharge Plan Patient Name: JOS ESPINAL Facility: [facility]:[place] : 1930 Planned Disposition: Assisted Facility Anticipated Discharge Date: Discharge Date: Expected LOS: Initial Reviewer: [id number] Initial Review Date: 08/19/2018 Generated: 09/08/18 1:49 pm Comments DCP- Discharge Planning Updated by [id number]: Madina Corrigan on 09/08/18 11:[address] Patient stated that he did want to go to rehab at [facility]. IMM served and explained. I was told by Luis that he was accepted at [facility]. CM to follow and assist with dc planning DCP- Discharge Planning Updated by [id number]: Cedric Brennan on 09/08/18 10:[address] Patient Name: JOS ESPINAL Encounter No: [id number] : 1930 Primary Insurance: MEDICARE A & B Anticipated DC Date: Planned Disposition: Assisted Facility External Planned Provider: [facility], MEDICARE REHAB BED DCP follow-up note: CM RECEIVED CALL FROM DANIEL OF [facility], , WHO INFORMED CM THAT [facility] WILL ACCEPT PT FOR REHAB SERVICES AT DISCHARGE. CM FAXED UPDATE TO [facility] VIA [email or web address] AT [phone]. CM INFORMED RN ARIS CORRIGAN. FOR DISCHARGE, FAX DISCHARGE INFORMATION TO [facility] AT [phone]. NURSE REPORT TO BE CALLED TO [facility] AT [phone]. [facility] TO ARRANGE VAN TRANSPORT. Cedric Brennan, CASE MANAGEMENT DCP- Discharge Planning Updated by [id number]: Saba Sherman on 09/07/18 10:[address] Patient Name: JOS ESPINAL Admission Status: ER Accout number: [id number] Admission Date: 08-17-2018 : 1930 Admission Diagnosis:SHORTNESS OF BREATH Attending: LUCIANA ANTON Current LOS: 21 Anticipated DC Date: Planned Disposition: Inpatient Rehab Primary Insurance: MEDICARE A & B Discharge Planning Comments: PATIENT CHOICE FORM COMPLETED, PATIENT REQUESTS TO GO TO [facility] OR [facility] FOR SNF. DOCUMENTS FAXED TO [facility], WAITING FOR CALL BACK. CM TO FOLLOW AND ASSIST NEEDED WITH DC PLANNING NEEDS. Fire Lookout: Saba Sherman DCP- Discharge Planning Updated by [id number]: Jo Carr on 09/05/18 5:[address] LATE ENTRY CM SPOKE WITH STEFANI FROM [facility] INPAT[facility] REH[facility] REGARDING ADMISSION. SHE STATES SHERICE HAD RE-EVALUATED THE PATIENT FRIDAY. HE WAS DECLINED. CM REQUEST RE-EVAL ON FRIDAY. PATIENT'S FRIEND , ALBERTA GODDARD, VISITED AND SPOKE WITH THE PATIENT. HIS CONTACT PHONE NUMBER IS [phone]. HE ENCOURAGED THE PATIENT TO GO TO REHAB. HE ALSO ENCOURAGED HIM TO PARTICIPATE WITH PHYSICAL THERAPY. CM ASK IF PATIENT IS A . ALBERTA STATES THAT HE IS. THE PATIENT HAS HAD SOME ISSUES REGARDING ISOLATION AND LYING BACK FLAT. HE DOES SUFFER FROM PTSD. PATIENT DOES NOT LIKE BEING ISOLATED OR IN DARK ROOMS. CM ASK STAFF TO HAVE LIGHTS ON DURING THE DAY. HIS FRIEND TOOK THE PATIENT IN A WHEELCHAIR OUT OF THE ROOM. THE PATIENT WAS VERY HAPPY. HE HAS BEEN COOPERATIVE. ALBERTA HAD SPOKEN TO THE POA, STEP DAUGHTER, СВЕТЛАНА GARCIA, AT [phone]. CM TO FOLLOW TO ASSIST W/ DISCHARGE PLANNING. DCP- Discharge Planning Updated by [id number]: Cedric Brennan on 09/03/18 7:[address] Patient Name: JOS ESPINAL Encounter No: [id number] : 1930 Primary Insurance: MEDICARE A & B Anticipated DC Date: Planned Disposition: Inpatient Rehab External Planned Provider: [facility] INPAT[facility] REH[facility] DCP follow-up note: CM MET WITH PT IN ROOM TO DISCUSS DISCHARGE PLAN. PT REPORTS HE BELIEVES THAT HE NEEDS REHAB . PT STATES HE HAS TALKED TO THE "GIRL FROM REHAB" ALREADY AND WANTS REHAB AT [place] BEFORE GOING HOME. CM NOTIFIED PT THAT THE ORDER HAS BEEN PLACED FOR REHAB PRESCREEN AND THEY ARE FOLLOWING HIS MEDICAL TREATMENT AND PLAN TO TAKE PT LONG THEY CAN MEET PT'S MEDICAL NEEDS AT DISCHARGE. PT DENIES NEEDS AT THIS TIME. PT PLANS TO DISCHARGE TO INPATIENT REHAB AT [place]. CM WAITING MEDICAL STABILITY AND ADMISSION DETERMINATION FROM [place] INPATIENT REHAB. JOSEP Salcido DCP- Discharge Planning Updated by [id number]: Cedric Brennan on 08/27/18 2:[address] Patient Name: JOS ESPINAL Encounter No: [id number] : 1930 Primary Insurance: MEDICARE A & B Anticipated DC Date: Planned Disposition: Home with Home Health External [facility] follow-up note: CM RECEIVED ORDER FOR INPATIENT REHAB PRESCREEN, SPOKE TO PT IN ROOM. PT WILL AGREE TO TALK TO REHAB, BUT PT STATES HE WANTS TO GO HOME AND HAS HOME HEALTH AT HOME. PT DOES NOT WANT TO STAY FOR REHAB. IMPORTANT MESSAGE FROM MEDICARE PROVIDED AND EXPLAINED. EZEKIEL OF INPATIENT REHAB NOTIFIED. PT REFUSED INPATIENT REHAB, REPORTS HE WANTS TO GO HOME WITH [facility] [employer] [facility]. FOR DISCHARGE, NOTIFY [facility], , FAX DISCHARGE INFORMATION TO [facility] AT [phone]. Cedric Brennan CASE ELVIA DCP- Discharge Planning Updated by [id number]: Marylou Radford on 08/19/18 2:[address] Patient Name: JOS ESPINAL Admission Status: ER Accout number: [id number] Admission Date: 08-17-2018 : 1930 Admission Diagnosis: Attending: LUCIANA ANTON Current LOS: 2 Anticipated DC Date: Planned Disposition: Home with Home Health Primary Insurance: MEDICARE A & B Discharge Planning Comments: CM met with patient to complete initial dc planning assessment. CM educated patient on the CM role and verbal consent given by patient to complete assessment. Patient lives at home with his disabled step son. At discharge patient plans to return and feels this is a safe discharge. CM discussed availability of home health, rehab services, and medical equipment. Patient states he has home health with [facility] and would like to resume this at discharge, VIVI form signed for [facility]. States CM will continue to follow and will assist as needed with dc plans/needs. Fire Lookout: Marylou Radford DCPIA - Discharge Planning Initial Assessment Updated by [email or web address]: Marylou Radford on 08/19/18 3:17 pm * Is the patient Alert and Oriented? Yes * PCP Dr[facility] Bella in [facility] * [facility] * Preadmission Environment Home with Family * ADLs Independent * Equipment None * List name and contact numbers for known caregivers / representatives who currently or will assist patient after discharge: Scott Crawford [facility] - [phone] Светлана Pierre [facility] - [phone] ([place]) * Verbal permission to speak to the caregivers and representatives has been obtained from the patient. Yes * Community resources currently utilized Home Health * Please name any agencies selected above. [facility] * Additional services required to return to the preadmission environment? No * Can the patient safely return to the preadmission environment? Yes * Has this patient been hospitalized within the prior 30 days at any hospital? No Coverage Notice Reviewer: [id number] - Marylou Radford Notice Issued Date-Time: 08/19/2018 15:17 Notice Type: Patient Choice Letter Notice Delivered To: Patient Relationship to Patient: Self Family Court Justice Name: Delivery Method: HAND - Hand Delivered Lluvia Days: Prior Verbal Notification: Recipient Understood Notice: Yes Recipient Signature: Yes Med Rec Note Co-signed by Attending: Coverage Notice Comment: [facility] for [facility] Reviewer: [id number] - Cedric Brennan Notice Issued Date-Time: 08/27/2018 14:55 Notice Type: IM Discharge Notice Notice Delivered To: Patient Relationship to Patient: Family Court Justice Name: Delivery Method: HAND - Hand Delivered Lluvia Days: Prior Verbal Notification: Recipient Understood Notice: Yes Recipient Signature: Yes Med Rec Note Co-signed by Attending: Coverage Notice Comment: Reviewer: [id number] - Saba Sherman Notice Issued Date-Time: 09/07/2018 11:20 Notice Type: Patient Choice Letter Notice Delivered To: Patient Relationship to Patient: Family Court Justice Name: Delivery Method: HAND - Hand Delivered Lluvia Days: Prior Verbal Notification: Recipient Understood Notice: Yes Recipient Signature: Yes Med Rec Note Co-signed by Attending: Coverage Notice Comment: [facility] chaparro/jeniffer [facility] Reviewer: [id number] - Madina Corrigan Notice Issued Date-Time: 09/08/2018 12:25 Notice Type: IM Discharge Notice Notice Delivered To: Patient Relationship to Patient: Family Court Justice Name: Delivery Method: HAND - Hand Delivered Lluvia Days: Prior Verbal Notification: Recipient Understood Notice: Yes Recipient Signature: Yes Med Rec Note Co-signed by Attending: Coverage Notice Comment: Last DP export: 09/08/18 10:56 a Patient Name: JOS ESPINAL Page 48103 at 1249 All edits/amendments must be made on the electronic document DICTATION DATE: 09/08/181247 BINDING CEMENTER FRENCH CORD: JENNY 09/08/181247 RPT#: [id number] DC DATE: STATUS: ADM IN [facility] [address] [place] [address] END OF REPORT
[2018-09-08 16:05] VITALS: BP 112/53
--- NOTE | 2018-09-08 20:00 | NUR ---
ALERT RESTING IN BED RESP UNLABOARED DENIES PAIN, STATES GETTING OUT TOMORROW GOING TO [facility], SEE SHIFT ASSESSMENT, CALL LIGHT IN REACH
[2018-09-08 22:16] VITALS: BP 108/62
--- NOTE | 2018-09-09 01:48 | NUR ---
CALL RECIEVED FROM TUNE UP MECHANIC REPORTS ANOTHER 4 BEAT RUN V TACH, AWAKE AT THIS TIME DENIES CHEST PAIN OR SHORTNESS OF BREATH WILL MONITOR
--- NOTE | 2018-09-09 02:07 | NUR ---
CALL FROM WATER TANKER DRIVER REPORTS ANOTHER 10 BEAT RUN V TACH, REMAINS AWAKE DENIES ANY PROBLEMS OR PAIN
--- NOTE | 2018-09-09 02:25 | NUR ---
CALL TO ANSWERING SERVICE, ANTHONY ENGINEER FIRST ASSISTANT, AWAITING CALL CARMEN
--- NOTE | 2018-09-09 03:00 | NUR ---
CALL BACK FROM ANTHONY ORDERS FOR LAB BMP TO CHECK POTASSIUM LEVEL, AND TO NOTIFY DIALYSIS IF ABNORMAL AND CARDIOLOGY CONSULT IF FUTHER EPISODES AND WILL NEED EVALUATION PRIOR TO DC
[2018-09-09 04:51] VITALS: BP 112/64
[2018-09-09 05:20] LABS: BASOPHILS 0.1 % (0-2); EOSINOPHILS 0.6 % (0-7); HEMATOCRIT 28.3 % (42.0-54.0); HEMOGLOBIN 8.6 g/dL (13.5-17.5); IMMATURE GRANULOCYTES 1.8 % (0-5); LYMPHOCYTES 8.4 % (15-50); MCH 25.9 pg (26.0-34.0); MCHC 30.4 g/dL (31.0-37.0); MCV 85.2 fL (80.0-100.0); MEAN PLATELET VOLUME 9.2 fL (7.4-10.4); MONOCYTES 6.4 % (2-11); NEUTROPHILS 82.7 % (40-80); PLATELET COUNT 248 10x3/uL (130-400); RBC 3.32 10x6/uL (4.20-6.10); RDW 20.3 % (11.5-14.5); WBC 8.9 10x3/uL (4.8-10.8)
[2018-09-09 05:24] LABS: INR 1.66 (0.85-1.17)
[2018-09-09 05:47] LABS: ALBUMIN 1.7 g/dL (3.4-5.0); ANION GAP 9.1 mmol/L (8-16); BILIRUBIN - TOTAL 0.43 mg/dL (0.2-1.3); CALCIUM 7.6 mg/dL (8.5-10.1); CARBON DIOXIDE 29.2 mmol/L (21.0-32.0); POTASSIUM - SERUM 3.3 mmol/L (3.5-5.1); PROTEIN - SERUM 6.2 g/dL (6.4-8.2)
--- NOTE | 2018-09-09 08:00 | NUR ---
PT SITTING UP IN CHAIR DOING BREATHING TX. NO S.S OF ACUTE DISTRESS. CL IN PLACE.
[2018-09-09 14:08] VITALS: BP 96/61
--- NOTE | 2018-09-09 14:25 | NUR ---
CALLED DR DEAN'S OFFICE AND LEFT MESSAGE WITH ASSISTANT PROFESSOR OF NURSING TO HAVE NURSE CALL IN REGARDS TO VINNY FROM IR STATED,"IR WOULD NOT BE AVAILABLE TO WORK ON HIS FISTUAL AND DR DEAN WOULD BEEN TO."
--- NOTE | 2018-09-09 14:35 | NUR ---
SPOKE WITH KARY NURSE AND GAVE REPORT. CALLED DIALYSIS AND LET THEM KNOW OF THE TRANSFER TO [phone].
--- NOTE | 2018-09-09 18:29 | NUR ---
WITHOUT CHANGES OR DISTRESS MNOTED AT THIS TIME.
--- NOTE | 2018-09-09 19:36 | NUR ---
ASSESSMENT COMPLETE, PT A&O. RESPERATIONS NON LABORED ON RA. IV TO LEFT HAND SL, IV SITE CLEAN AND DRY. PT CURRENTLY DENIES PAIN OR NEEDS, BED LOW, CL IN REACH.
[2018-09-09 20:00] VITALS: BP 118/55; BP 123/70
--- NOTE | 2018-09-09 20:46 | NUR ---
HS MEDS GIVEN WITH FRESH ICE WATER. UP WITH ASSIST TO THE CHAIR AT PTS REQUEST.
--- NOTE | 2018-09-09 22:05 | NUR ---
BACK TO BED WITH ASSIST, PT STATED THAT HE IS " HAPPY A PIG IN MUD" BED LOW, CL IN REACH.
--- NOTE | 2018-09-10 00:23 | NUR ---
RESTING WITH EYES CLOSED, RESPERATIONS EVEN, NO S/S DISTRESS NOTED.
[2018-09-10 00:30] VITALS: BP 118/55
[2018-09-10 04:30] VITALS: BP 101/61
--- NOTE | 2018-09-10 05:11 | NUR ---
I have reviewed this patient and I concur with the Shift Assessment completed by the Licensed Practical Nurse today this shift.
[2018-09-10 06:23] LABS: BASOPHILS 0.1 % (0-2); EOSINOPHILS 0.8 % (0-7); HEMATOCRIT 25.8 % (42.0-54.0); HEMOGLOBIN 7.8 g/dL (13.5-17.5); LYMPHOCYTES 9.4 % (15-50); MCH 25.7 pg (26.0-34.0); MCHC 30.2 g/dL (31.0-37.0); MCV 84.9 fL (80.0-100.0); MEAN PLATELET VOLUME 9.2 fL (7.4-10.4); MONOCYTES 6.9 % (2-11); NEUTROPHILS 80.8 % (40-80); PLATELET COUNT 211 10x3/uL (130-400); RBC 3.04 10x6/uL (4.20-6.10); RDW 20.1 % (11.5-14.5); WBC 9.1 10x3/uL (4.8-10.8)
[2018-09-10 06:47] LABS: ALBUMIN 1.6 g/dL (3.4-5.0); ANION GAP 12.3 mmol/L (8-16); BILIRUBIN - TOTAL 0.38 mg/dL (0.2-1.3); CALCIUM 7.3 mg/dL (8.5-10.1); CARBON DIOXIDE 25.6 mmol/L (21.0-32.0); CREATININE - SERUM 3.2 mg/dL (0.6-1.3); POTASSIUM - SERUM 3.9 mmol/L (3.5-5.1); PROTEIN - SERUM 6.4 g/dL (6.4-8.2)
--- NOTE | 2018-09-10 07:30 | NUR ---
ASSESSMENT COMPLETED. DENIES ANY NEEDS. TELEMERTY SHOWS CAF. ALERT AND ORIENTED. PT HAS A RIGHT CHEST HEMOSPLIT. UP WITH ASSIST. SL TO LEFT HAND. PT HAS SOME SORES ON HIS TOES AND HIS BOTTOM IS RED. CALL LIGHT IN REACH
[2018-09-10 08:33] VITALS: BP 106/59
[2018-09-10 11:48] VITALS: BP 112/61
--- NOTE | 2018-09-10 12:40 | NUR ---
Nutrition Follow Up: Diet has been liberalized to regular No documented po intake past 2 days Pt reports the food is much better and that he is eating much better Weight 140lb Pt is drinking some Nepro RD following
[2018-09-10] MEDS ORDERED: AMOXICILLIN500 M1 PO (14:57)
[2018-09-10 15:52] VITALS: BP 109/55
--- NOTE | 2018-09-10 16:56 | MORECARE ---
CASE MANAGEMENT DISCHARGE SUMMARY PATIENT: JOS ESPINAL UNIT: [id number] ADM DATE: 08/17/18 AGE: 87 : 32 SEX: M ROOM/BED: D.2293 AUTHOR: CORIE ROCA PHYSICIAN: REFERRING PHYSICIAN: LUCIANA ANTON DO DATE OF SERVICE: 09/10/18 Discharge Plan Patient Name: JOS ESPINAL Facility: [facility]:[place] : 1930 Planned Disposition: Longterm Facility Anticipated Discharge Date: 09/03/18 Discharge Date: Expected LOS: 17 Initial Reviewer: [email or web address] Initial Review Date: 08/19/2018 Generated: 09/10/18 5:56 pm Comments DCP- Discharge Planning Updated by [email or web address]: Cedric Brennan on 09/10/18 3:[address] Patient Name: JOS ESPINAL Encounter No: [id number] : 1930 Primary Insurance: MEDICARE A & B Anticipated DC Date: 09-03-2018 Planned Disposition: Longterm Facility External Planned Provider:[facility], MEDICARE REHAB BED DCP follow-up note: CM RECEIVED DC ORDER, NOTIFIED DANIEL OF [facility] WHO WILL NOTIFY FACILITY AND REQUEST VAN EXTENSION SUPERVISOR. CM NOTIFIED PT WHO IS IN AGREEMENT WITH REHAB AT [facility]. CM FAXED DISCHARGE INFORMATION TO [facility] AT [phone]. NURSE REPORT TO BE CALLED TO [facility] AT [phone]. [facility] TO ARRANGE VAN TRANSPORT. Cedric Brennan, CASE MANAGEMENT DCP- Discharge Planning Updated by [id number]: Madina Corrigan on 09/08/18 11:[address] Patient stated that he did want to go to rehab at [facility]. IMM served and explained. I was told by Luis that he was accepted at [facility]. CM to follow and assist with dc planning DCP- Discharge Planning Updated by [email or web address]: Cedric Brennan on 09/08/18 10:[address] Patient Name: JOS SEPINAL Encounter No: [id number] : 1930 Primary Insurance: MEDICARE A & B Anticipated DC Date: Planned Disposition: Longterm Facility External Planned Provider: [facility], MEDICARE REHAB BED DCP follow-up note: CM RECEIVED CALL FROM DANIEL OF [facility], , WHO INFORMED CM THAT [facility] WILL ACCEPT PT FOR REHAB SERVICES AT DISCHARGE. CM FAXED UPDATE TO [facility] VIA [employer] AT [phone]. CM INFORMED RN ARIS CORRIGAN. FOR DISCHARGE, FAX DISCHARGE INFORMATION TO [facility] AT [phone]. NURSE REPORT TO BE CALLED TO [facility] AT [phone]. [facility] TO ARRANGE VAN TRANSPORT. Cedric Brennan, CASE MANAGEMENT DCP- Discharge Planning Updated by [email or web address]: Saba Sherman on 09/07/18 10:[address] Patient Name: JOS ESPINAL Admission Status: ER Accout number: [id number] Admission Date: 08-17-2018 : 1930 Admission Diagnosis:SHORTNESS OF BREATH Attending: LUCIANA ANTON Current LOS: 21 Anticipated DC Date: Planned Disposition: Inpatient Rehab Primary Insurance: MEDICARE A & B Discharge Planning Comments: PATIENT CHOICE FORM COMPLETED, PATIENT REQUESTS TO GO TO [facility] OR [facility] FOR SNF. DOCUMENTS FAXED TO [facility], WAITING FOR CALL BACK. CM TO FOLLOW AND ASSIST NEEDED WITH DC PLANNING NEEDS. Cloth Mercerizer Operator: Saba Sherman DCP- Discharge Planning Updated by [id number]: Jo Carr on 09/05/18 5:[address] LATE ENTRY CM SPOKE WITH STEFANI FROM [facility] REGARDING ADMISSION. SHE STATES SHERICE HAD RE-EVALUATED THE PATIENT FRIDAY. HE WAS DECLINED. CM REQUEST RE-EVAL ON FRIDAY. PATIENT'S FRIEND , ALBERTA GODDARD, VISITED AND SPOKE WITH THE PATIENT. HIS CONTACT PHONE NUMBER IS [phone]. HE ENCOURAGED THE PATIENT TO GO TO REHAB. HE ALSO ENCOURAGED HIM TO PARTICIPATE WITH PHYSICAL THERAPY. CM ASK IF PATIENT IS A . ALBERTA STATES THAT HE IS. THE PATIENT HAS HAD SOME ISSUES REGARDING ISOLATION AND LYING BACK FLAT. HE DOES SUFFER FROM PTSD. PATIENT DOES NOT LIKE BEING ISOLATED OR IN DARK ROOMS. CM ASK STAFF TO HAVE LIGHTS ON DURING THE DAY. HIS FRIEND TOOK THE PATIENT IN A WHEELCHAIR OUT OF THE ROOM. THE PATIENT WAS VERY HAPPY. HE HAS BEEN COOPERATIVE. ALBERTA HAD SPOKEN TO THE POA, STEP DAUGHTER, СВЕТЛАНА GARCIA, AT [phone]. CM TO FOLLOW TO ASSIST W/ DISCHARGE PLANNING. DCP- Discharge Planning Updated by [email or web address]: Cedric Brennan on 09/03/18 7:[address] Patient Name: JOS ESPINAL Encounter No: [id number] : 1930 Primary Insurance: MEDICARE A & B Anticipated DC Date: Planned Disposition: Inpatient Rehab External Planned Provider: [facility] DCP follow-up note: CM MET WITH PT IN ROOM TO DISCUSS DISCHARGE PLAN. PT REPORTS HE BELIEVES THAT HE NEEDS REHAB . PT STATES HE HAS TALKED TO THE "GIRL FROM REHAB" ALREADY AND WANTS REHAB AT [facility] BEFORE GOING HOME. CM NOTIFIED PT THAT THE ORDER HAS BEEN PLACED FOR REHAB PRESCREEN AND THEY ARE FOLLOWING HIS MEDICAL TREATMENT AND PLAN TO TAKE PT LONG THEY CAN MEET PT'S MEDICAL NEEDS AT DISCHARGE. PT DENIES NEEDS AT THIS TIME. PT PLANS TO DISCHARGE TO INPATIENT REHAB AT [facility]. CM WAITING MEDICAL STABILITY AND ADMISSION DETERMINATION FROM [facility]PATIENT [facility]. Cedric Brennan, CASE MANAGEMENT DCP- Discharge Planning Updated by [id number]: Cedric Brennan on 08/27/18 2:[address] Patient Name: JOS ESPINAL Encounter No: [id number] : 1930 Primary Insurance: MEDICARE A & B Anticipated DC Date: Planned Disposition: Home with Home Health External Planned Provider: [facility] DCP follow-up note: CM RECEIVED ORDER FOR INPATIENT REHAB PRESCREEN, SPOKE TO PT IN ROOM. PT WILL AGREE TO TALK TO REHAB, BUT PT STATES HE WANTS TO GO HOME AND HAS HOME HEALTH AT HOME. PT DOES NOT WANT TO STAY FOR REHAB. IMPORTANT MESSAGE FROM MEDICARE PROVIDED AND EXPLAINED. EZEKIEL OF INPATIENT REHAB NOTIFIED. PT REFUSED INPATIENT REHAB, REPORTS HE WANTS TO GO HOME WITH RESUMPTION OF [employer]. FOR DISCHARGE, NOTIFY [facility], , FAX DISCHARGE INFORMATION TO [facility] AT [phone]. Cedric Brennan, CASE MANAGEMENT DCP- Discharge Planning Updated by [id number]: Marylou Radford on 08/19/18 2:[address] Patient Name: JOS ESPINAL Admission Status: ER Accout number: [id number] Admission Date: 08-17-2018 : 1930 Admission Diagnosis: Attending: LUCIANA ANTON Current LOS: 2 Anticipated DC Date: Planned Disposition: Home with Home Health Primary Insurance: MEDICARE A & B Discharge Planning Comments: CM met with patient to complete initial dc planning assessment. CM educated patient on the CM role and verbal consent given by patient to complete assessment. Patient lives at home with his disabled step son. At discharge patient plans to return and feels this is a safe discharge. CM discussed availability of home health, rehab services, and medical equipment. Patient states he has home health with [facility] and would like to resume this at discharge, VIVI form signed for [facility]. States CM will continue to follow and will assist as needed with dc plans/needs. Cloth Mercerizer Operator: Marylou Radford DCPIA - Discharge Planning Initial Assessment Updated by [id number]: Marylou Radford on 08/19/18 3:17 pm * Is the patient Alert and Oriented? Yes * PCP Dr[facility] Bella in [facility] * [facility] * Preadmission Environment Home with Family * ADLs Independent * Equipment None * List name and contact numbers for known caregivers / representatives who currently or will assist patient after discharge: Scott Crawford - [employer] - [phone] Светлана Pierre [facility] - [phone] ([place]) * Verbal permission to speak to the caregivers and representatives has been obtained from the patient. Yes * Community resources currently utilized Home Health * Please name any agencies selected above. [facility] * Additional services required to return to the preadmission environment? No * Can the patient safely return to the preadmission environment? Yes * Has this patient been hospitalized within the prior 30 days at any hospital? No Coverage Notice Reviewer: [id number] - Marylou Radford Notice Issued Date-Time: 08/19/2018 15:17 Notice Type: Patient Choice Letter Notice Delivered To: Patient Relationship to Patient: Self Stationary Engineer Apprentice Name: Delivery Method: HAND - Hand Delivered Lluvia Days: Prior Verbal Notification: Recipient Understood Notice: Yes Recipient Signature: Yes Med Rec Note Co-signed by Attending: Coverage Notice Comment: V[facility]I for [facility] Reviewer: [id number] - Cedric Brennan Notice Issued Date-Time: 08/27/2018 14:55 Notice Type: IM Discharge Notice Notice Delivered To: Patient Relationship to Patient: Stationary Engineer Apprentice Name: Delivery Method: HAND - Hand Delivered Lluvia Days: Prior Verbal Notification: Recipient Understood Notice: Yes Recipient Signature: Yes Med Rec Note Co-signed by Attending: Coverage Notice Comment: Reviewer: [id number] Cherie Sherman Notice Issued Date-Time: 09/07/2018 11:20 Notice Type: Patient Choice Letter Notice Delivered To: Patient Relationship to Patient: Stationary Engineer Apprentice Name: Delivery Method: HAND - Hand Delivered Lluvia Days: Prior Verbal Notification: Recipient Understood Notice: Yes Recipient Signature: Yes Med Rec Note Co-signed by Attending: Coverage Notice Comment: jh chaparro/jeniffer alves Reviewer: [email or web address] - Madina Corrigan Notice Issued Date-Time: 09/08/2018 12:25 Notice Type: IM Discharge Notice Notice Delivered To: Patient Relationship to Patient: Stationary Engineer Apprentice Name: Delivery Method: HAND - Hand Delivered Lluvia Days: Prior Verbal Notification: Recipient Understood Notice: Yes Recipient Signature: Yes Med Rec Note Co-signed by Attending: Coverage Notice Comment: Last DP export: 09/08/18 11:49 a Patient Name: JOS ESPINAL Page 18707 at 1656 All edits/amendments must be made on the electronic document DICTATION DATE: 09/10/181655 SEISMIC PLOTTER: JENNY 09/10/181655 RPT#: [id number] DC DATE: STATUS: ADM IN [facility] [address] [place] [address] END OF REPORT
--- NOTE | 2018-09-10 17:04 | MORECARE ---
CASE MANAGEMENT DISCHARGE SUMMARY PATIENT: JOS ESPINAL UNIT: [id number] ADM DATE: 08/17/18 AGE: 87 : 32 SEX: M ROOM/BED: D.0758 AUTHOR: CORIE ROCA PHYSICIAN: REFERRING PHYSICIAN: LUCIANA ANTON DO DATE OF SERVICE: 09/10/18 Discharge Plan Patient Name: JOS ESPINAL Facility: [facility]:[place] : 1930 Planned Disposition: Mcfp Facility Anticipated Discharge Date: 09/03/18 Discharge Date: Expected LOS: 17 Initial Reviewer: [email or web address] Initial Review Date: 08/19/2018 Generated: 09/10/18 6:04 pm Comments DCP- Discharge Planning Updated by [email or web address]: Cedric Brennan on 09/10/18 4:[address] Patient Name: JOS ESPINAL Encounter No: [id number] : 1930 Primary Insurance: MEDICARE A & B Anticipated DC Date: 09-03-2018 Planned Disposition: Mcfp Facility External Planned Provider:[facility], MEDICARE REHAB BED DCP follow-up note: CM RECEIVED DC ORDER, NOTIFIED DANIEL OF [facility] WHO WILL NOTIFY FACILITY AND REQUEST VAN SLOT SHIFT SUPERVISOR. CM NOTIFIED PT WHO IS IN AGREEMENT WITH REHAB AT [facility]. CM FAXED DISCHARGE INFORMATION TO [facility] AT [phone]. NURSE REPORT TO BE CALLED TO [facility] AT [phone]. [facility] TO ARRANGE VAN TRANSPORT. Cedric Brennan, CASE MANAGEMENT Appended by Cedric Brennan on 09/10/2018 17:00 CDT: VAN SCHEDULED FOR 7PM THIS EVENING. [facility]RI[facility] [employer] NURSE NOTIFIED. JOSEP PAL DCP- Discharge Planning Updated by [email or web address]: Madina Corrigan on 09/08/18 11:[address] Patient stated that he did want to go to rehab at [facility]. IMM served and explained. I was told by Luis that he was accepted at [facility]. CM to follow and assist with dc planning DCP- Discharge Planning Updated by [email or web address]: Cedric Brennan on 09/08/18 10:[address] Patient Name: JOS ESPINAL Encounter No: [id number] : 1930 Primary Insurance: MEDICARE A & B Anticipated DC Date: Planned Disposition: Mcfp Facility External Planned Provider: [facility] DCP follow-up note: CM RECEIVED CALL FROM DANIEL OF [facility], , WHO INFORMED CM THAT [facility] WILL ACCEPT PT FOR REHAB SERVICES AT DISCHARGE. CM FAXED UPDATE TO [facility] VIA [employer] AT [phone]. CM INFORMED RN ARIS CORRIGAN. FOR DISCHARGE, FAX DISCHARGE INFORMATION TO [facility] AT [phone]. NURSE REPORT TO BE CALLED TO [facility] AT [phone]. [facility] TO ARRANGE VAN TRANSPORT. Cedric Brennan, CASE MANAGEMENT DCP- Discharge Planning Updated by [id number]: Saba Sherman on 09/07/18 10:[address] Patient Name: JOS ESPINAL Admission Status: ER Accout number: [id number] Admission Date: 08-17-2018 : 1930 Admission Diagnosis:SHORTNESS OF BREATH Attending: LUCIANA ANTON Current LOS: 21 Anticipated DC Date: Planned Disposition: Inpatient Rehab Primary Insurance: MEDICARE A & B Discharge Planning Comments: PATIENT CHOICE FORM COMPLETED, PATIENT REQUESTS TO GO TO [facility] OR [facility] FOR SNF. DOCUMENTS FAXED TO [facility], WAITING FOR CALL BACK. CM TO FOLLOW AND ASSIST NEEDED WITH DC PLANNING NEEDS. Flotation Tank Operator: Saba Sherman DCP- Discharge Planning Updated by [id number]: Jo Carr on 09/05/18 5:[address] LATE ENTRY CM SPOKE WITH STEFANI FROM [facility] REGARDING ADMISSION. SHE STATES SHERICE HAD RE-EVALUATED THE PATIENT FRIDAY. HE WAS DECLINED. CM REQUEST RE-EVAL ON FRIDAY. PATIENT'S FRIEND , ALBERTA GODDARD, VISITED AND SPOKE WITH THE PATIENT. HIS CONTACT PHONE NUMBER IS [phone]. HE ENCOURAGED THE PATIENT TO GO TO REHAB. HE ALSO ENCOURAGED HIM TO PARTICIPATE WITH PHYSICAL THERAPY. CM ASK IF PATIENT IS A . ALBERTA STATES THAT HE IS. THE PATIENT HAS HAD SOME ISSUES REGARDING ISOLATION AND LYING BACK FLAT. HE DOES SUFFER FROM PTSD. PATIENT DOES NOT LIKE BEING ISOLATED OR IN DARK ROOMS. CM ASK STAFF TO HAVE LIGHTS ON DURING THE DAY. HIS FRIEND TOOK THE PATIENT IN A WHEELCHAIR OUT OF THE ROOM. THE PATIENT WAS VERY HAPPY. HE HAS BEEN COOPERATIVE. ALBERTA HAD SPOKEN TO THE POA, STEP DAUGHTER, СВЕТЛАНА GARCIA, AT [phone]. CM TO FOLLOW TO ASSIST W/ DISCHARGE PLANNING. DCP- Discharge Planning Updated by [email or web address]: Cedric Brennan on 09/03/18 7:[address] Patient Name: JOS ESPINAL Encounter No: [id number] : 1930 Primary Insurance: MEDICARE A & B Anticipated DC Date: Planned Disposition: Inpatient Rehab External Planned Provider: [facility] INPATIENT REHAB DCP follow-up note: CM MET WITH PT IN ROOM TO DISCUSS DISCHARGE PLAN. PT REPORTS HE BELIEVES THAT HE NEEDS REHAB . PT STATES HE HAS TALKED TO THE "GIRL FROM REHAB" ALREADY AND WANTS REHAB AT [facility] BEFORE GOING HOME. CM NOTIFIED PT THAT THE ORDER HAS BEEN PLACED FOR REHAB PRESCREEN AND THEY ARE FOLLOWING HIS MEDICAL TREATMENT AND PLAN TO TAKE PT LONG THEY CAN MEET PT'S MEDICAL NEEDS AT DISCHARGE. PT DENIES NEEDS AT THIS TIME. PT PLANS TO DISCHARGE TO INPATIENT REHAB AT [facility]. CM WAITING MEDICAL STABILITY AND ADMISSION DETERMINATION FROM [facility] INPATIENT REHAB. Cedric Brennan, CASE MANAGEMENT DCP- Discharge Planning Updated by [email or web address]: Cedric Brennan on 08/27/18 2:[address] Patient Name: JOS ESPINAL Encounter No: [id number] : 1930 Primary Insurance: MEDICARE A & B Anticipated DC Date: Planned Disposition: Home with Home Health External Planned Provider: [facility] DCP follow-up note: CM RECEIVED ORDER FOR INPATIENT REHAB PRESCREEN, SPOKE TO PT IN ROOM. PT WILL AGREE TO TALK TO REHAB, BUT PT STATES HE WANTS TO GO HOME AND HAS HOME HEALTH AT HOME. PT DOES NOT WANT TO STAY FOR REHAB. IMPORTANT MESSAGE FROM MEDICARE PROVIDED AND EXPLAINED. EZEKIEL OF INPATIENT REHAB NOTIFIED. PT REFUSED INPATIENT REHAB, REPORTS HE WANTS TO GO HOME WITH RESUMPTION OF Need. FOR DISCHARGE, NOTIFY [facility], , FAX DISCHARGE INFORMATION TO [facility] AT [phone]. Cedric Brennan, CASE MANAGEMENT DCP- Discharge Planning Updated by [email or web address]: Marylou Radford on 08/19/18 2:[address] Patient Name: JOS ESPINAL Admission Status: ER Accout number: [id number] Admission Date: 08-17-2018 : 1930 Admission Diagnosis: Attending: LUCIANA ANTON Current LOS: 2 Anticipated DC Date: Planned Disposition: Home with Home Health Primary Insurance: MEDICARE A & B Discharge Planning Comments: CM met with patient to complete initial dc planning assessment. CM educated patient on the CM role and verbal consent given by patient to complete assessment. Patient lives at home with his disabled step son. At discharge patient plans to return and feels this is a safe discharge. CM discussed availability of home health, rehab services, and medical equipment. Patient states he has home health with [facility] and would like to resume this at discharge, VIVI form signed for [facility]. States CM will continue to follow and will assist as needed with dc plans/needs. Flotation Tank Operator: Marylou Radford DCPIA - Discharge Planning Initial Assessment Updated by [id number]: Marylou Radford on 08/19/18 3:17 pm * Is the patient Alert and Oriented? Yes * PCP Dr[facility] Bella in [facility] * Pharmacy [facility] for [facility] * Preadmission Environment Home with Family * ADLs Independent * Equipment None * List name and contact numbers for known caregivers / representatives who currently or will assist patient after discharge: Scott Crawford [facility] - [phone] Светлана Pierre [facility] - [phone] ([place]) * Verbal permission to speak to the caregivers and representatives has been obtained from the patient. Yes * Community resources currently utilized Home Health * Please name any agencies selected above. [facility] * Additional services required to return to the preadmission environment? No * Can the patient safely return to the preadmission environment? Yes * Has this patient been hospitalized within the prior 30 days at any hospital? No Coverage Notice Reviewer: [id number] Cherie Radford Notice Issued Date-Time: 08/19/2018 15:17 Notice Type: Patient Choice Letter Notice Delivered To: Patient Relationship to Patient: Self Swimming Professor Name: Delivery Method: HAND - Hand Delivered Lluvia Days: Prior Verbal Notification: Recipient Understood Notice: Yes Recipient Signature: Yes Med Rec Note Co-signed by Attending: Coverage Notice Comment: [facility] for [facility] Reviewer: [id number] - Sabasilvana Sherman Notice Issued Date-Time: 09/07/2018 11:20 Notice Type: Patient Choice Letter Notice Delivered To: Patient Relationship to Patient: Swimming Professor Name: Delivery Method: HAND - Hand Delivered Lluvia Days: Prior Verbal Notification: Recipient Understood Notice: Yes Recipient Signature: Yes Med Rec Note Co-signed by Attending: Coverage Notice Comment: jh chaparro/jeniffer snf Reviewer: [id number] Cherie Corrigan Notice Issued Date-Time: 09/08/2018 12:25 Notice Type: IM Discharge Notice Notice Delivered To: Patient Relationship to Patient: Swimming Professor Name: Delivery Method: HAND - Hand Delivered Lluvia Days: Prior Verbal Notification: Recipient Understood Notice: Yes Recipient Signature: Yes Med Rec Note Co-signed by Attending: Coverage Notice Comment: Reviewer: [id number] - Cedric Brennan Notice Issued Date-Time: 08/27/2018 14:55 Notice Type: IM Discharge Notice Notice Delivered To: Patient Relationship to Patient: Swimming Professor Name: Delivery Method: HAND - Hand Delivered Lluvia Days: Prior Verbal Notification: Recipient Understood Notice: Yes Recipient Signature: Yes Med Rec Note Co-signed by Attending: Coverage Notice Comment: Last DP export: 09/10/18 3:56 p Patient Name: JOS ESPINAL Page 18058 at 1704 All edits/amendments must be made on the electronic document DICTATION DATE: 09/10/181702 OIL WELL SERVICE OPERATOR: JENNY 09/10/181702 RPT#: [id number] DC DATE: STATUS: ADM IN [facility] [address] [place] [address] END OF REPORT
--- NOTE | 2018-09-10 19:25 | NUR ---
PT DISCHARGED TO [facility]. REPORT CALLED TO MATTY
--- NOTE | 2018-09-14 10:36 | OP ---
PATIENT NAME: JOS CUEVAS MEDICAL RECORD: [id number] :[birth year] LOCATION:D.M2 D.2123 ADMISSION DATE:08/17/18 SURGEON: ANTONIO DEAN MD DATE OF OPERATION: 09/03/2018 PREOPERATIVE DIAGNOSES: End-stage renal disease, dependence upon hemodialysis. Displacement of right internal jugular HemoSplit dialysis catheter. POSTOPERATIVE DIAGNOSES: End-stage renal disease, dependence upon hemodialysis. Displacement of right internal jugular HemoSplit dialysis catheter. OPERATIONS PERFORMED: Ultrasound-guided access and fluoroscopic-guided insertion of a HemoSplit tunneled dialysis catheter via the right internal jugular vein. SURGEON: Antonio Dean MD ANESTHESIA: TIVA per CONSTRUCTION PERSON and local 1% lidocaine. PREOPERATIVE NOTE: Mr. Cuevas is an 87-year-old chronically debilitated gentleman who has recently joined the dialysis population. He is catheter dependent at this time and his catheter came out apparently last evening. He is brought to the operating room now to place a new one. Under TIVA, the patient was placed in supine position, prepped and draped in a sterile manner. Ultrasound was used to locate the right internal jugular vein. It was compressible, but did contain some nonocclusive well-organized thrombus. Lidocaine 1% was injected into the tissues overlying it at the base of the neck. A small incision was made and again, under fluoroscopic guidance, a micropuncture needle was advanced into the internal jugular vein. Recorded images are saved on USB drive. A microcatheter was passed over that wire and wire exchange was made and then serial dilators were passed and lastly a 19-cm HemoSplit catheter was inserted through a dilator peel-away sheath and its tip positioned deeply in the right atrium. The catheter was first inserted through a subclavicular incision and the catheter pulled through a subcutaneous tunnel to the primary cervical incision. Both lumens were accessed and aspirated. Free return of blood was confirmed. They were then heparin locked, clamped, and capped. The cervical wound was closed with interrupted inverted 3-0 Vicryl and Dermabond glue. The external entry site was closed to snug it up around the catheter. This was done with a single interrupted inverted 3-0 Vicryl suture. The catheter itself was sutured to the skin near the entry site with 2-0 Prolene. The cervical wound was dressed with Maxorb Ag, Cavilon skin prep, and Tegaderm. The catheter exit site was dressed with a chlorhexidine-containing patch and standard CVL dressing. The patient was awakened and taken to the PACU for observation before going back to [facility]. TRANSINT:[id number] Voice Confirmation ID: [id number] DOCUMENT ID: [id number] OPERATIVE REPORT [id number] JOS CUEVAS JAMES MD at 1036 CC: NATALY MERCADO MD [id number] DICTATION DATE: 09/03/18 1538 MANAGER METAL: 09/03/18 1833 DIS IN 09/10/18 [facility] [address] [place] [address]
== END 2018-09-10 19:33 | DRG 177 ==
LOC: D.ER 20:31 → D.EDHOLD 22:42 → D.MS 22:42 → D.M2 22:42 → D.MS 23:07 → D.M2 08-24 20:52 → D.SDCHOLD 08-26 14:50 → D.M2 08-26 14:56 → D.SDCHOLD 08-26 16:34 → D.M2 08-26 16:36 → D.MS 09-07 23:00 → D.M2 09-09 14:41
PROVIDERS: Family Medicine; General Practice; Internal Medicine Nephrology; Internal Medicine Pulmonary Disease; Radiology Vascular & Interventional Radiology; Specialist; ADMIT Family Medicine; ATTEND Family Medicine
PROC: 0W9930Z Drainage of Right Pleural Cavity with Drainage Device, Percutaneous Approach (ICD-10-PCS; principal; 2018-08-18 09:35)
PROC: 05HM33Z Insertion of Infusion Device into Right Internal Jugular Vein, Percutaneous Approach (ICD-10-PCS; 2018-09-03)
PROC: B5131ZA Fluoroscopy of Right Jugular Veins using Low Osmolar Contrast, Guidance (ICD-10-PCS; 2018-09-03)
DX: J86.9 Pyothorax without fistula (principal); J96.01 Acute respiratory failure with hypoxia; N18.6 End stage renal disease; I50.23 Acute on chronic systolic (congestive) heart failure; J18.1 Lobar pneumonia, unspecified organism; I13.2 Hypertensive heart and chronic kidney disease with heart failure and with stage 5 chronic kidney disease, or end stage renal disease; J90 Pleural effusion, not elsewhere classified; T82.42XA Displacement of vascular dialysis catheter, initial encounter; I48.91 Unspecified atrial fibrillation; I50.9 Heart failure, unspecified; Z99.2 Dependence on renal dialysis; B95.2 Enterococcus as the cause of diseases classified elsewhere; E03.9 Hypothyroidism, unspecified; D50.9 Iron deficiency anemia, unspecified; Y83.9 Surgical procedure, unspecified as the cause of abnormal reaction of the patient, or of later complication, without mention of misadventure at the time of the procedure

== ENCOUNTER 2018-09-22 07:54 | Emergency (ER) | payer MEDICARE, OTHER ==
[~2018-09-22] VITALS: Ht 180.3 cm; Wt 67.3 kg
[~2018-09-22 07:54] MED LIST changes: +AMOXICILLIN500 M1 PO
[2018-09-22 07:56] VITALS: BP 137/78; Ht 180.3 cm; Wt 67.3 kg
[2018-09-22 08:33] LABS: BASOPHILS 0.5 % (0-2); EOSINOPHILS 0.9 % (0-7); HEMATOCRIT 30.4 % (42.0-54.0); HEMOGLOBIN 9.1 g/dL (13.5-17.5); IMMATURE GRANULOCYTES 0.7 % (0-5); LYMPHOCYTES 17.5 % (15-50); MCH 26.1 pg (26.0-34.0); MCHC 29.9 g/dL (31.0-37.0); MCV 87.1 fL (80.0-100.0); MEAN PLATELET VOLUME 9.5 fL (7.4-10.4); MONOCYTES 7.7 % (2-11); NEUTROPHILS 72.7 % (40-80); PLATELET COUNT 241 10x3/uL (130-400); RBC 3.49 10x6/uL (4.20-6.10); RDW 19.6 % (11.5-14.5); WBC 5.5 10x3/uL (4.8-10.8)
[2018-09-22 08:43] LABS: ANION GAP 11.2 mmol/L (8-16); BILIRUBIN - TOTAL 0.33 mg/dL (0.2-1.3); CARBON DIOXIDE 26.7 mmol/L (21.0-32.0); CREATININE - SERUM 2.5 mg/dL (0.6-1.3); POTASSIUM - SERUM 3.9 mmol/L (3.5-5.1)
[2018-09-22 08:52] LABS: MAGNESIUM - SERUM 1.7 mg/dL (1.8-2.4); T4 THYROXINE 4.8 ug/dL (4.7-13.3); THYROID STIMULATING HORMONE 2.55 uIU/mL (0.36-3.74)
[2018-09-22 09:11] LABS: UDS - AMPHET NEGATIVE QUAL (NEGATIVE); UDS - BARB NEGATIVE QUAL (NEGATIVE); UDS - BENZO NEGATIVE QUAL (NEGATIVE); UDS - COCAINE NEGATIVE QUAL (NEGATIVE); UDS - OPIATE NEGATIVE QUAL (NEGATIVE); UDS - PCP NEGATIVE QUAL (NEGATIVE); UDS - THC NEGATIVE QUAL (NEGATIVE)
[2018-09-22 10:08] LABS: APPEARANCE CLOUDY (CLEAR); BILIRUBIN NEGATIVE (NEGATIVE); COLOR YELLOW (YELLOW); GLUCOSE 250 mg/dL (NEGATIVE); KETONE NEGATIVE (NEGATIVE); NITRITE NEGATIVE (NEGATIVE); PROTEIN 3+ mg/dL (NEGATIVE); UROBILINOGEN NORMAL (NORMAL); WHITE CELLS - URINE 0-5 /hpf (0-5)
[2018-09-22 10:09] LABS: BACTERIA MODERATE /hpf (NONE SEEN); EPITHELIAL CELLS 0-5 /hpf (0-5); GRANULAR CAST OCC /lpf (NONE SEEN); HYALINE CAST OCC /lpf (NONE SEEN); MUCUS >1+ /lpf (NONE SEEN)
== END 2018-09-22 13:08 ==
LOC: D.ER 07:54
PROVIDERS: Family Medicine
DX: Z03.89 Encounter for observation for other suspected diseases and conditions ruled out (principal)

== ENCOUNTER 2018-11-03 06:08 | Day surgery (SDC) | payer MEDICARE ==
[~2018-11-03] VITALS: Ht 180.3 cm; Wt 74.8 kg
[2018-11-03] MEDS ORDERED: LASIX40 MG PO (07:00)
[2018-11-03] MEDS ORDERED: POTASSIUM CHLO20 MEQ PO (07:00)
[2018-11-03 07:06] VITALS: BP 123/68; BMI 23.0
[2018-11-03 08:12] LABS: BASOPHILS 0.7 % (0-2); EOSINOPHILS 1.4 % (0-7); HEMATOCRIT 35.1 % (42.0-54.0); HEMOGLOBIN 10.7 g/dL (13.5-17.5); IMMATURE GRANULOCYTES 0.9 % (0-5); LYMPHOCYTES 19.3 % (15-50); MCH 25.8 pg (26.0-34.0); MCHC 30.5 g/dL (31.0-37.0); MCV 84.6 fL (80.0-100.0); MEAN PLATELET VOLUME 9.7 fL (7.4-10.4); MONOCYTES 8.2 % (2-11); NEUTROPHILS 69.5 % (40-80); PLATELET COUNT 274 10x3/uL (130-400); RBC 4.15 10x6/uL (4.20-6.10); RDW 17.5 % (11.5-14.5); WBC 4.3 10x3/uL (4.8-10.8)
[2018-11-03 08:16] LABS: CALCIUM 8.4 mg/dL (8.5-10.1); CREATININE - SERUM 2.4 mg/dL (0.6-1.3)
[2018-11-03 08:25] LABS: INR 1.28 (0.85-1.17); PROTIME 15.4 SECONDS (11.6-15.0)
--- NOTE | 2018-11-03 13:08 | NUR ---
THRILL PALPATED AND BRUIT AUSCULTATED AT SITE.
--- NOTE | 2018-11-03 14:03 | NUR ---
PT RESTING COMFORTABLY NAD NOTED.
--- NOTE | 2018-11-03 15:03 | NUR ---
DRESSING TO RUE CHANGED AT THIS TIME, 1 GAUZE SATURATED WITH BLOOD NOTED,
--- NOTE | 2018-11-03 15:13 | NUR ---
PT LEAVING OPS AT THIS TIME, TO FLOOR.
--- NOTE | 2018-11-03 15:13 | NUR ---
REPORT GIVEN TO MED 2 RN.
[2018-11-03 16:16] VITALS: BP 123/68; Ht 180.3 cm; Wt 74.8 kg
--- NOTE | 2018-11-03 19:35 | NUR ---
PT RESTING IN BED. NATIVE, WATCHING TV. NURSE PLACED NAME AND DATE ON BOARD. PT DENIES ANY NEEDS. NO S/S OF DISTRESS. BEDLOW AND CALL LIGHT IN REACH. WILL CPOC
[2018-11-03 20:00] VITALS: BP 129/74
--- NOTE | 2018-11-03 22:03 | NUR ---
EDUCATED PT IN [facility]. PT VERBALIZED UNDERSTANDING. FIXED CALL LIGHT TO LET PT TURN OFF TV. PT HAS NO S/S OF DISTRESS. BEDLOW AND CALL LIGHT IN REACH. PT WILL CALL FOR ASSIST WHEN NEEDED. WILL CPOC
--- NOTE | 2018-11-04 02:46 | NUR ---
FLUSHED IV. PT DENIES ANY NEEDS. NO S/S OF DISTRESS. WILL CPOC
[2018-11-04 04:00] VITALS: BP 132/68
[2018-11-04 08:39] VITALS: BP 119/62
[2018-11-04] MEDS ORDERED: ELIQUIS2.5 MG PO (10:40)
--- NOTE | 2018-11-04 14:49 | NUR ---
RETURN TO ROOM FROM DIALYSIS. ALERT AND ORIENTED X4. SITTING UP IN BED. FAMILY AT BEDSIDE. DISCHARGE INSTRUCTIONS GIVEN VERBALLY AND WRITTEN. DISCHARGE PAPERS SIGNED ON CHART. DC LT HAND IV TIP INTACT. ESCORT TO RIDE VIA WHEELCHAIR. REMAINS FREE FROM INJURY.
--- NOTE | 2018-11-06 15:16 | OP ---
PATIENT NAME: JOS CUEVAS MEDICAL RECORD: [id number] :32 LOCATION:[place] ADMISSION DATE: SURGEON: ANTONIO DEAN MD DATE OF OPERATION: 11/03/2018 PREOPERATIVE DIAGNOSES: End-stage renal disease, dependence on hemodialysis and thrombosed right upper extremity Artegraft, brachial artery to axillary vein AVG. POSTOPERATIVE DIAGNOSES: End-stage renal disease, dependence on hemodialysis and thrombosed right upper extremity Artegraft, brachial artery to axillary vein AVG. OPERATION PERFORMED: Ultrasound-guided access followed by mechanical thrombolysis with AngioJet and 2 mg of TPA with angiography and balloon angioplasty of venous anastomotic stenosis and placement of 8 mm x 5 cm Viabahn PTFE covered stent graft in the venous anastomosis and a selective brachial artery arteriogram. SURGEON: Antonio Dean MD ANESTHESIA: Local 1% lidocaine and MAC with monitoring and medication per SMOKE ROOM OPERATOR. PREOPERATIVE NOTE: Mr. Cuevas is a very chronically severely ill 88-year-old white male, who has been on hemodialysis now for several months. He has had to dialyze all this time with a tunneled dialysis catheter in the right internal jugular vein. I did implant an Artegraft in the right arm between the brachial artery and the axillary vein in a rainbow configuration. However, during a recent severe illness, respiratory failure, pneumonia and pleural effusion that access thrombosed. It has taken several months to get him to the operating room where he is today with plans to try to salvage this AV graft, which I do not believe was ever used for hemodialysis. The patient is not on any chronic anticoagulants. Under mild sedation in supine position and monitored per SMOKE ROOM OPERATOR, the patient was prepped and draped in a sterile manner. As needed, the skin and subcutaneous tissues over the AV graft were anesthetized with 1% lidocaine. A micropuncture technique was utilized for the placement of 2 opposing introducer sheaths. A 6-Slovak diameter sheath was placed very close to the arterial anastomosis directed proximally and 6-Slovak introducer sheath was placed at the mid graft directed distally towards the arterial anastomosis and the distal 6-Slovak sheath was later during the procedure changed for an 8-Slovak introducer to allow placement of the stent. The patient was systemically heparinized with 5000 units of heparin. A Glidewire was passed through the graft proximally to the venous anastomosis where it would not pass proximal. An AngioJet catheter was used to remove thrombus from the graft, but I could not pass the AngioJet wire combination across the venous anastomosis due to well organized thrombus, which was visible on the ultrasound. I had used the duplex B-mode ultrasound for access with micropuncture needles earlier in the case with documentation. Then, 2 mg of TPA was infused into the occluded graft and repeated attempts to pass a glide catheter and Glidewire across the venous anastomosis were at that time unsuccessful. I then went on to try to pass the Glidewire and glide OPERATIVE REPORT [id number] JOS CUEVAS catheter distally through the arterial anastomosis into the brachial artery and this was difficult, but finally successful and I was able to put the glide catheter in the brachial artery just distal to the arterial anastomosis and perform a selective brachial artery arteriogram. This revealed 3-vessel runoff to the forearm and no evidence of embolism. I then passed a 4-Slovak Kajal embolectomy catheter across the arterial anastomosis to pull the plug and this established brisk arterial pulsation in the body of the graft. I then attempted again to go across the venous anastomosis and this time was unsuccessful with the use of a Glidewire and glide catheter, both angled and straight and also use of the Roadrunner wire. I; however, was finally successful with a stiff Glidewire through the angled glide catheter and I placed the glide catheter in the subclavian vein and performed a central venogram, which demonstrated some narrowing of the subclavian vein, crossing the first rib and probably some compromise of flow due to the presence of the tunneled dialysis catheter in the right internal jugular vein. I did a pullback angiogram, identified the venous anastomosis and then again inserted a guidewire and then an 8-mm angioplasty balloon and dilated the axillary vein and venous anastomosis and proximal graft. Repeated contrast injection revealed now flow through the graft and through the venous anastomosis, though a persistent stenosis which did not yield to repeated balloon angioplasties with the 8-mm balloon. I did not want to use a larger balloon and risk rupturing the sutured anastomosis and so subsequently placed an 8 mm diameter x 5 cm Viabahn covered endovascular graft. Repeated balloon dilatation was then performed with a stent in the outflow with the 8-mm balloon and completion angiography revealed good flow through the graft and through the venous anastomosis and stent into the central venous outflow tract. The patient's anticoagulant was not reversed. The ports were removed and hemostasis was obtained with [id number] 4-0 Prolene sutures and direct digital pressure and later Cavilon Tegaderm and Ultrafoam dressings at the puncture sites. The patient was then taken to the recovery room with a functioning AV graft with a palpable thrill pulsation and bruit over it. Operation blood loss was about 25-50 cc, which was unreplaced. Sponges, instruments, and needles were accounted for. No drain was used and no surgical specimen was submitted for histopathology. The patient will be monitored overnight in observation on Med 2 and I am placing him on Eliquis 2.5 mg b.i.d. with plans to continue it hopefully for maybe 30 days unless there is some bleeding complication. He probably will be able to go home tomorrow if he is not suffering respiratory failure or having a bleeding complication by that time. I will plan to see him on a p.r.n. basis and I would recommend at some point in the next 1-2 months that he have a followup fistulogram done at [facility]. The patient will need to have dialysis tomorrow. I do not know if that will be certainly here in the hospital or rather he may be able to be dialyzed at one of the local dialysis units. I believe he regularly dialyzes on [facility]. TRANSINT:[id number] Voice Confirmation ID: [id number] DOCUMENT ID: [id number] cc: [facility] OPERATIVE REPORT [id number] JOS CUEVAS JAMES MD at 1516 CC: NATALY MERCADO MD [id number] DICTATION DATE: 11/03/18 1142 [facility]ER: 11/03/18 1342 [facility] 11/04/18 [facility] [address] [place] [address]
== END 2018-11-04 14:30 | disposition home or self-care (01) ==
LOC: D.OPS 06:08 → D.M2 15:23 → D.OPS 11-04 14:30
PROVIDERS: Surgery; ATTEND Internal Medicine
DX: T82.868A Thrombosis due to vascular prosthetic devices, implants and grafts, initial encounter (principal); N18.6 End stage renal disease; Z99.2 Dependence on renal dialysis; Z01.812 Encounter for preprocedural laboratory examination